=== PATIENT | female | born 1960 | race Caucasian/White ===

== ENCOUNTER 2017-07-01 09:22 | Inpatient (IN) | payer MEDICAID ==
[2017-07-01] VITALS (31 sets, daily range): BP systolic 119–233; BP diastolic 68–140; PULSE 15–161; RESP 15–28; TEMP 98.2–100.6; O2SAT 85–100
[~2017-07-01] VITALS: Ht 162.6 cm; Wt 60.0 kg
[2017-07-01] MEDS ORDERED: PANTOPRAZOLE INJ 80 MG in SODIUM CHLORIDE 0.9% INJ 100 ML IV SCH (09:37)
[2017-07-01] MEDS ORDERED: PANTOPRAZOLE INJ 80 MG in SODIUM CHLORIDE 0.9% INJ 35 ML IV ONE (09:37)
[2017-07-01] MEDS ORDERED: OCTREOTIDE INJ 500 MCG in SODIUM CHLORID 0.9% 500 ML INJ 500 ML IV SCH (09:37)
[2017-07-01] MEDS ORDERED: SODIUM CHLORIDE 0.9% FLUSH 10 ML FLUSH IV FLUSH PRN (09:45)
[2017-07-01] MEDS ORDERED: LORazepam 2 MG/ML VIAL ONE (09:46)
[2017-07-01] MEDS ORDERED: DILTIAZEM HCL 25 MG/5 ML VIAL ONE (09:46)
[2017-07-01] MEDS ORDERED: ETOMIDATE 20 MG/10 ML VIAL ONE (10:03)
[2017-07-01] MEDS ORDERED: SUCCINYLCHOLINE CHLORIDE 200 MG/10 ML VIAL ONE (10:03)
[2017-07-01 10:04] LABS: I-STAT POTASSIUM 3.3 MMOL/L (3.5-4.9)
[2017-07-01] MEDS ORDERED: PROPOFOL 1000 MG/100 ML INJ 100 ML ONE (10:05)
[2017-07-01 10:07] LABS: AUTOMATED NEUTROPHIL # 18.5 TH/MM3 (1.8-7.7); BASOPHIL % 0.2 % (0.0-2.0); HEMATOCRIT 44.3 % (35.0-46.0); HEMO FLAGS DIFF FINAL; LYMPH % 8.2 % (9.0-44.0); LYMPHOCYTE # 1.8 TH/MM3 (1.0-4.8); MEAN CELL VOLUME 90.6 FL (80.0-100.0); MEAN CORPUSCULAR HEMOGLOBIN 30.1 PG (27.0-34.0); MEAN CORPUSCULAR HGB CONC 33.2 % (32.0-36.0); MONO % 5.7 % (0.0-8.0); NEUT % 85.9 % (16.0-70.0); PLATELET COUNT 518 TH/MM3 (150-450); RED BLOOD COUNT 4.89 MIL/MM3 (4.00-5.30); RED CELL DISTRIBUTION WIDTH 14.9 % (11.6-17.2); WHITE BLOOD COUNT 21.6 TH/MM3 (4.0-11.0)
--- NOTE | 2017-07-01 10:11 | RADRPT ---
EXAM DATE/TIME: 07/01/2017 09:49 [facility] COMPARISON: No previous studies available for comparison. INDICATIONS : Stroke alert, altered mental status. RADIATION DOSE: 56.35 CTDIvol (mGy) This report was called by Dr. Mata to Dr. Cummings at 10: 07 AM on 07/01/17. MEDICAL HISTORY : Cardiovascular disease. SURGICAL HISTORY : None. ENCOUNTER: Initial ACUITY: 1 day PAIN SCALE: Non-responsive LOCATION: Bilateral head TECHNIQUE: Multiple contiguous axial images were obtained of the head. Using automated exposure control and adj ustment of the mA and/or kV according to patient size, radiation dose was kept as low as reasonably a chievable to obtain optimal diagnostic quality images. DICOM format image data is available electro nically for review and comparison. FINDINGS: CEREBRUM: The ventricles are normal for age. No evidence of midline shift, mass lesion, hemorrhage or acute in farction. No extra-axial fluid collections are seen. POSTERIOR FOSSA: The cerebellum and brainstem are intact. The 4th ventricle is midline. The cerebellopontine angle i s unremarkable. EXTRACRANIAL: The visualized portion of the orbits is intact. SKULL: The calvaria is intact. No evidence of skull fracture. CONCLUSION: No acute intracranial abnormality. Nader Mata MD on July 01, 2017 at 10:05 Board Certified Radiologist. This report was verified electronically.
[2017-07-01 10:14] LABS: APTT (PATIENT) 25.1 SEC (24.3-30.1); PROTHROMBIN TIME - PATIENT 10.6 SEC (9.8-11.6)
[2017-07-01] MEDS ORDERED: DEXAMETHASONE SOD PHOS 20 MG/5 ML VIAL IV PUSH STA (10:14)
[2017-07-01] MEDS ORDERED: AMPICILLIN INJ 2,000 MG in SODIUM CHLORIDE 0.9% INJ 100 ML IV STA (10:14)
[2017-07-01] MEDS ORDERED: cefTAZidime INJ 2,000 MG in SODIUM CHLORIDE 0.9% INJ 100 ML IV STA (10:14)
[2017-07-01] MEDS ORDERED: ETOMIDATE 20 MG/10 ML VIAL IVP ONE (10:15)
[2017-07-01] MEDS ORDERED: ACETAMINOPHEN 650 MG SUPP RECTAL ONE (10:15)
[2017-07-01] MEDS ORDERED: SODIUM CHLORIDE 0.9% FLUSH 10 ML FLUSH IVF PRN (10:15)
[2017-07-01] MEDS ORDERED: SUCCINYLCHOLINE CHLORIDE 200 MG/10 ML VIAL IV PUSH ONE (10:15)
[2017-07-01] MEDS ORDERED: DILTIAZEM HCL 25 MG/5 ML VIAL IV ONE (10:15)
[2017-07-01 10:26] LABS: ALT (GPT) 54 U/L (10-53); ANION GAP 9 MEQ/L (5-15); AST (GOT) 55 U/L (15-37); BICARBONATE 28.5 MEQ/L (21.0-32.0); BLOOD UREA NITROGEN 10 MG/DL (7-18); CHLORIDE 94 MEQ/L (98-107); GLOMERULAR FILTRATION RATE 69 ML/MIN (>89); MAGNESIUM 2.1 MG/DL (1.5-2.5); POTASSIUM 3.2 MEQ/L (3.5-5.1); SODIUM (NA) 131 MEQ/L (136-145)
[2017-07-01 10:28] LABS: ALKALINE PHOSPHATASE 128 U/L (45-117); TOTAL BILIRUBIN ADULT 0.4 MG/DL (0.2-1.0)
--- NOTE | 2017-07-01 10:28 | PD ---
HPI Chief Complaint: GI Complaint Time Seen by Provider: 09:37 Travel History International Travel<30 days: No Contact w/Intl Traveler<30days: No Traveled to known affect area: No History of Present Illness HPI 57 y/o female presents by ambulance with an initial call of vomiting blood for the past couple of days. While I was talking to the ambulance team getting report they state that in route she became less cooperative answering questions. When I go to evaluate the patient she is unresponsive with a rightward gaze and cannot provide me any history. History is significantly limited [facility] Past Medical History Medical History: Unable to Obtain Cardiovascular Problems: Yes Diminished Hearing: No (UNOBTAINABLE) Hypertension: Yes Ulcer: Yes Tetanus Vaccination: Unknown Past Surgical History Surgical History: Unable to Obtain Social History Alcohol Use: No (UNOBTAINABLE) Tobacco Use: No (UNOBTAINABLE) Substance Use: No (UNOBTAINABLE) Allergies-Medications (Allergen,Severity, Reaction): Coded Allergies: Unable to Assess (Verified Allergy, Unknown, 07/01/17) Reported Meds & Prescriptions Reported Meds & Active Scripts Active Active Prescriptions or Reported Medications Unobtainable Review of Systems ROS Limitations: Clinical Condition Physical Exam Exam Limitations: Clinical Condition Narrative General: Patient with rightward gaze, focused exam performed Skin: Warm and dry Eyes: Pupils equal Neck: No JVD, trachea midline Cardiovascular: Tachycardic rate in the 160s Respiratory: Shallow respiratory effort noted, clear to auscultation bilaterally Abdomen: Soft, nondistended Extremities: No edema noted Neuro: Rightward gaze, nonverbal, unable to follow commands Data Data Last Documented VS Vital Signs Date Time Temp Pulse Resp B/P (MAP) Pulse Ox O2 Delivery O2 Flow Rate FiO2 07/01/17 10:21 100 100 07/01/17 10:15 151 16 127/71 (89) Ventilator 07/01/17 10:07 6.00 07/01/17 09:39 100.6 Orders Orders Complete Blood Count With Diff (07/01/17 09:37) Comprehensive Metabolic Panel (07/01/17 09:37) Lipase (07/01/17 09:37) Ammonia (07/01/17 09:37) Prothrombin Time / Inr (Pt) (07/01/17 09:37) Act Partial Throm Time (Ptt) (07/01/17 09:37) Alcohol (Ethanol) (07/01/17 09:37) Urinalysis - C+S If Indicated (07/01/17 09:37) Type And Screen (07/01/17 09:37) Chest, Single Ap (07/01/17 09:37) Ecg Monitoring (07/01/17 09:37) Iv Access Insert/Monitor (07/01/17 09:37) Oximetry (07/01/17 09:37) Sodium Chloride 0.9% Flush (Ns Flush) (07/01/17 09:45) Sodium Chlorid 0.9%... W/Octreotide Inj (07/01/17 09:37) Sodium Chloride 0.9... W/Pantoprazole In (07/01/17 09:37) Sodium Chloride 0.9... W/Pantoprazole In (07/01/17 09:37) Electrocardiogram (07/01/17 09:37) Creatine Kinase (Cpk) (07/01/17 09:37) Troponin I (07/01/17 09:37) Lactic Acid Sepsis Protocol (07/01/17 09:37) Blood Culture (07/01/17 09:37) Ct Brain W/O Iv Contrast(Rout) (07/01/17 09:37) Blood Glucose (07/01/17 09:37) Oxygen Administration (07/01/17 09:37) Urinary Catheter Insert/Apply (07/01/17 09:37) Sodium Chloride 0.9% Flush (Ns Flush) (07/01/17 09:45) Drug Screen, Random Urine (07/01/17 09:37) Magnesium (Mg) (07/01/17 09:37) Lorazepam Inj (Ativan Inj) (07/01/17 09:46) Diltiazem Inj (Cardizem Inj) (07/01/17 09:46) I-Stat Creatinine (07/01/17 10:00) I-Stat Profile (07/01/17 10:00) Fosphenytoin Inj (Cerebyx Inj) (07/01/17 10:30) Etomidate Inj (Amidate Inj) (07/01/17 10:03) Succinylcholine Inj (Quelicin Inj) (07/01/17 10:03) Propofol 1000 Mg/100 Ml Inj (Diprivan 10 (07/01/17 10:05) Phenytoin (Dilantin) (07/01/17 09:50) Isolation 08,20 (07/01/17 10:12) Equip, Isolation Cart (07/01/17 10:12) Arterial Blood Gas (Abg) (07/01/17 ) Acetaminophen Supp (Tylenol Supp) (07/01/17 10:15) Precautions (07/01/17 10:11) Etomidate Inj (Amidate Inj) (07/01/17 10:15) Succinylcholine Inj (Quelicin Inj) (07/01/17 10:15) Sodium Chloride 0.9% Flush (Ns Flush) (07/01/17 10:15) Propofol 1000 Mg/100 Ml Inj (Diprivan 10 (07/01/17 10:15) ^ Infusion (07/01/17 10:11) RASS (07/01/17 10:11) Neurological Rass Scale KAPIL.Q2H (07/01/17 10:11) Diltiazem Inj (Cardizem Inj) (07/01/17 10:15) Dexamethasone Inj (Decadron Inj) (07/01/17 10:14) Vancomycin Inj (Vancomycin Inj) (07/01/17 11:15) Ampicillin Inj (Ampicillin Inj) (07/01/17 10:14) Ceftazidime Inj (Fortaz Inj) (07/01/17 10:14) Glucose, Csf (07/01/17 10:28) Total Protein, Csf (07/01/17 10:28) Csf Culture And Gram Stain (07/01/17 10:28) Csf Hsv I/Ii Dna,Pcr (07/01/17 10:28) Chlorhexidine 0.12% Liq (Peridex 0.12% L (07/01/17 20:00) Resp Ventilation- Volume (07/01/17 ) Ventilator Weaning Readiness KAPIL.DAILY@0800 (07/01/17 10:34) Elevate Head Of Bed (07/01/17 10:34) Inpatient Certification (07/01/17 10:34) Magnesium Oxide (Mag-Ox) (07/01/17 10:45) Magnesium Sulfate Inj (Magnesium Sulfate (07/01/17 10:45) Magnesium Sulfate Inj (Magnesium Sulfate (07/01/17 10:45) Potassium Chlor 20 Meq Premix (Kcl 20 Me (07/01/17 10:45) Potassium Chlor 20 Meq Premix (Kcl 20 Me (07/01/17 10:45) Potassium Chlor 40 Meq Premix (Kcl 40 Me (07/01/17 10:45) Potassium Chlor 40 Meq Premix (Kcl 40 Me (07/01/17 10:45) Potassium Phosphate (K-Phos) (07/01/17 10:45) Potassium Phosphate (K-Phos) (07/01/17 10:45) Potassium Phosphate Inj (Potassium Phosp (07/01/17 10:45) Sodium Phosphate Inj (Sodium Phosphate I (07/01/17 10:45) ^ Medication Admin Instruction (07/01/17 10:34) Notify Dr: Other (07/01/17 10:34) Labetalol Inj (Trandate Inj) (07/01/17 10:45) Hydralazine Inj (Apresoline Inj) (07/01/17 10:45) Bedside Glucose KAPIL.Q6H (07/01/17 10:34) Blood Glucose Goal (Criteria) (07/01/17 10:34) Hypoglycemia 51 - 69 Mg/Dl (07/01/17 10:34) Hypoglycemia 50 Mg/Dl Or < (07/01/17 10:34) Notify Dr: Other (07/01/17 10:34) Dextrose 50% In Sadia (Vial) Inj (D50w (Vi (07/01/17 10:45) Insulin Human Reg Supp Scale (Novolin R (07/01/17 12:00) Diet Tube Feed Only (07/01/17 Breakfast) Dietary (Dietitian) Consult (07/01/17 10:34) Tube Feeding 08,20 (07/01/17 10:34) Restraints Non-Violent KAPIL.Q3H (07/01/17 10:34) Cbc No Diff, Includes Plts (07/02/17 05:00) Cbc No Diff, Includes Plts (07/03/17 05:00) Cbc No Diff, Includes Plts (07/04/17 05:00) Cbc No Diff, Includes Plts (07/05/17 05:00) Cbc No Diff, Includes Plts (07/06/17 05:00) Cbc No Diff, Includes Plts (07/07/17 05:00) Cbc No Diff, Includes Plts (07/08/17 05:00) Basic Metabolic Panel (Bmp) (07/02/17 05:00) Basic Metabolic Panel (Bmp) (07/03/17 05:00) Basic Metabolic Panel (Bmp) (07/04/17 05:00) Basic Metabolic Panel (Bmp) (07/05/17 05:00) Basic Metabolic Panel (Bmp) (07/06/17 05:00) Basic Metabolic Panel (Bmp) (07/07/17 05:00) Basic Metabolic Panel (Bmp) (07/08/17 05:00) Neuro Checks KAPIL.Q1H (07/01/17 10:34) Albuterol-Ipratropium Neb (Duoneb Neb) (07/01/17 16:00) Albuterol-Ipratropium Neb (Duoneb Neb) (07/01/17 10:45) Urinary Catheter Management KAPIL.Q1H (07/01/17 10:34) Tube Feeding (07/01/17 10:34) Sputum Culture And Gram Stain (07/01/17 10:34) ^ Other Nursing Orders (07/01/17 10:34) Resp Request For Service (07/01/17 ) Blood Culture (07/01/17 10:34) Specimen To Be Collected PRN (07/01/17 10:34) Code Status (07/01/17 10:34) Vital Signs (Adult) KAPIL.Q1H (07/01/17 10:34) Activity Bed Rest (07/01/17 10:34) Elevate Head Of Bed (07/01/17 10:34) Intake + Output Q1H (07/01/17 10:34) ^ Orogastric Tube (07/01/17 10:34) Sodium Chlor 0.9% 1000 Ml Inj (Ns 1000 M (07/01/17 10:34) Pantoprazole Inj (Protonix Inj) (07/01/17 14:00) Ondansetron Inj (Zofran Inj) (07/01/17 10:45) Scrap Crusher / Telemetry KAPIL.Q8H (07/01/17 10:34) Scd Bilateral/Knee High KAPIL.BID (07/01/17 10:34) ^ Initiate Protocol (07/01/17 10:34) Instruction (07/01/17 10:34) [facility] Nursing Information (07/01/17 10:45) Chlorhexidine 2% Cloth (Chlorhexidine 2% (07/02/17 04:00) Chlorhexidine 2% Cloth (Chlorhexidine 2% (07/01/17 10:45) Mrsa Pcr Surveillance (07/01/17 10:34) Docusate Sodium-Senna (Sarah-Colace) (07/01/17 21:00) Hgb & Hct (07/01/17 15:00) Hgb & Hct (07/01/17 21:00) Hgb & Hct (07/02/17 03:00) Hgb & Hct (07/02/17 09:00) Hgb & Hct (07/02/17 15:00) Vancomycin Consult Pharmacy (Vancomycin (07/01/17 10:45) Ceftriaxone Inj (Rocephin Inj) (07/01/17 14:00) Azithromycin Inj (Zithromax Inj) (07/01/17 15:00) Admit Order (Ed Use Only) (07/01/17 10:44) Labs Laboratory Tests Test 07/01/17 09:10 07/01/17 09:50 07/01/17 10:00 07/01/17 10:46 Lactic Acid Level 1.9 mmol/L White Blood Count 21.6 TH/MM3 Red Blood Count 4.89 MIL/MM3 Hemoglobin 14.7 GM/DL Hematocrit 44.3 % Mean Corpuscular Volume 90.6 FL Mean Corpuscular Hemoglobin 30.1 PG Mean Corpuscular Hemoglobin Concent 33.2 % Red Cell Distribution Width 14.9 % Platelet Count 518 TH/MM3 Mean Platelet Volume 7.0 FL Neutrophils (%) (Auto) 85.9 % Lymphocytes (%) (Auto) 8.2 % Monocytes (%) (Auto) 5.7 % Eosinophils (%) (Auto) 0.0 % Basophils (%) (Auto) 0.2 % Neutrophils # (Auto) 18.5 TH/MM3 Lymphocytes # (Auto) 1.8 TH/MM3 Monocytes # (Auto) 1.2 TH/MM3 Eosinophils # (Auto) 0.0 TH/MM3 Basophils # (Auto) 0.0 TH/MM3 CBC Comment DIFF FINAL Differential Comment Prothrombin Time 10.6 SEC Prothromb Time International Ratio 1.0 RATIO Activated Partial Thromboplast Time 25.1 SEC Blood Urea Nitrogen 10 MG/DL Creatinine 0.85 MG/DL Random Glucose 180 MG/DL Total Protein 7.6 GM/DL Albumin 3.8 GM/DL Calcium Level 9.1 MG/DL Magnesium Level 2.1 MG/DL Alkaline Phosphatase 128 U/L Aspartate Amino Transf (AST/SGOT) 55 U/L Alanine Aminotransferase (ALT/SGPT) 54 U/L Total Bilirubin 0.4 MG/DL Sodium Level 131 MEQ/L Potassium Level 3.2 MEQ/L Chloride Level 94 MEQ/L Carbon Dioxide Level 28.5 MEQ/L Anion Gap 9 MEQ/L Estimat Glomerular Filtration Rate 69 ML/MIN Ammonia 26 MCMOL/L Total Creatine Kinase 70 U/L Troponin I LESS THAN 0.02 NG/ML Lipase 58 U/L Phenytoin (Dilantin) Level 0.7 MCG/ML Ethyl Alcohol Level LESS THAN 3 MG/DL Bedside Hemoglobin 16.7 G/DL Bedside Hematocrit 49.0 % Bedside Sodium 131 MMOL/L Bedside Potassium 3.3 MMOL/L Bedside Chloride 91 MMOL/L Bedside Blood Urea Nitrogen 11 MG/DL Bedside Creatinine 0.8 MG/DL Bedside Glucose 188 MG/DL Blood Gas Puncture Site RT BRACHIAL Blood Gas Patient Temperature 98.6 Blood Gas HCO3 19 mmol/L Blood Gas Base Excess -5.2 mmol/L Blood Gas Oxygen Saturation 98 % Arterial Blood pH 7.39 Arterial Blood Partial Pressure CO2 32 mmHg Arterial Blood Partial Pressure O2 488 mmHg Arterial Blood Oxygen Content 18.7 Vol % Arterial Blood Carboxyhemoglobin 1.1 % Arterial Blood Methemoglobin 0.9 % Blood Gas Hemoglobin 12.7 G/DL Oxygen Delivery Device VENTILATOR Blood Gas Ventilator Setting A/C16/500/PEEP5 Blood Gas Inspired Oxygen 100 % MDM Medical Decision Making Medical Screen Exam Complete: Yes Emergency Medical Condition: Yes Interpretation(s) CBC & BMP Diagram 07/01/17 09:50 Total Protein 7.6, Albumin 3.8, Calcium Level 9.1, Magnesium Level 2.1, Alkaline Phosphatase 128 H, Aspartate Amino Transf (AST/SGOT) 55 H, Alanine Aminotransferase (ALT/SGPT) 54 H, Total Bilirubin 0.4 Last [address] 07/01/17 0937 Signed Impressions: Service Date/Time: Saturday, July 01, 2017 09:49 - CONCLUSION: No acute intracranial abnormality. Nader Mata MD Last [address] [id number]/[id number] Signed Impressions: Service Date/Time: Saturday, July 01, 2017 09:49 - CONCLUSION: No acute intracranial abnormality. Nader Mata MD Chest X-Ray [id number]/[id number] Signed Impressions: Service Date/Time: Saturday, July 01, 2017 10:36 - CONCLUSION: 1. 2.5 cm right perihilar mass. CT of the chest with contrast would be helpful for further evaluation of this suspicious lesion. 2. Endotracheal tube in good position 3 cm above the chidi. Nader Mata MD Differential Diagnosis Seizure, bleed, electrolyte abnormality, hypoglycemia, sepsis, varices, ulcer Narrative Course For patient's tachycardia she was given 20 mg of Cardizem to assess rhythm to see if atrial flutter versus sinus tachycardia. Improved from 180s to 140s but still difficult to tell underlying rhythm. With patient's acute altered mental status discuss with neurology my concern for bleed versus seizure and given acute onset they requested stroke alert which was called, I went with patient to CT scan and in route patient had tonic-clonic seizure. Was given 2 mg of Ativan and seizure stopped and myself and respiratory therapy and nurse watched patient on the monitor, no large bleed noted on CT, patient did not improve from her post ictal phase and respirations got shallower so proceeded with intubation when back in room with etomidate and succinylcholine. Patient will be loaded with Cerebyx and placed on propofol. Will be given Tylenol for fever. There is report from ambulance team the patient is an alcoholic and given she's been vomiting she likely is having an alcohol withdrawal seizure. But given fever Will Prophylactically treat for meningitis and patient will need LP. Patient's heart rate and blood pressure improved with anti-pyretic and IV fluid hydration. Patient can have repeat EKG to confirm upstairs. LP performed with clear fluid. Patient remains sedated on the ventilator Critical Care Narrative Aggregate critical care time was 90 minutes. Time to perform other separately billable procedures was not included in the critical care time. My time did not include minutes spent treating any other patients simultaneously or on activities that did not directly contribute to the patient's treatment. The services I provided to this patient were to treat and/or prevent clinically significant deterioration that could result in: Septic shock, respiratory failure, I provided critical care services requiring my management, as noted below: Chart data review, documentation time, medication orders and management, vital sign assessments/reviewing monitor data, ordering and reviewing lab tests, ordering and interpreting/reviewing x-rays and diagnostic studies, care of the patient and discussion of the patient with the admitting physicians. Procedures Procedure Narrative Emergently performed: INTUBATION: The patient was put in optimal position for the procedure. Rapid sequence intubation was initiated by me using 20 milligrams of etomidate IV and 100 milligrams of succinylcholine IV. The patient was intubated with a 7.5 cuffed endotracheal tube. Tube placement was confirmed by visualization of the tube and balloon passing through the cords, capnometry and subsequent chest x- ray. Breath sounds were equal and well aerated bilaterally postintubation. No breath sounds over stomach. Patient tolerated procedure well. LUMBAR PUNCTURE: The patient was placed in the left lateral decubitus position. The lumbar area of the back was prepped with Betadine and sterilely draped. The L3 -- L4 interspace was infiltrated with 1% lidocaine plain. Adult LP needle was placed in the interspace on one attempt. Opening pressure was low. Clear CSF was obtained and placed into the 4 specimen containers. On the fourth tube a small amount of blood was noted so cell count will be taken off second tube, Patient tolerated procedure well. Sepsis Criteria SIRS Criteria (2 or more): Heart rate over 90, WBC > 26937, < 4000 or > 10% bands Sepsis Criteria (SIRS+source): Infect source susp/known Criteria Outcome: Meets sepsis criteria Physician Communication Physician Communication dr gaona states to call stroke alert to expediate and will follow dr gaona updated agrees to cerebyx, and lp and cancel stroke alert dr tripathi agrees to admit Diagnosis Primary Impression: Respiratory failure Qualified Codes: J96.00 - Acute respiratory failure, unspecified whether with hypoxia or hypercapnia Additional Impressions: Seizure Tachycardia Hypertension Qualified Codes: I10 - Essential (primary) hypertension Vomiting Qualified Codes: R11.10 - Vomiting, unspecified Fever Qualified Codes: R50.9 - Fever, unspecified Sepsis Qualified Codes: A41.9 - Sepsis, unspecified organism Lung mass Admitting Information Admitting Physician Requests: Admit Scripts Unable to Obtain Active Prescriptions or Reported Meds Hird,Helen May MD Jul 01, 2017 10:28
[2017-07-01 10:30] LABS: ALCOHOL LESS THAN 3 MG/DL (0-5); CREATINE KINASE 70 U/L (26-192)
[2017-07-01] MEDS ORDERED: FOSPHENYTOIN INJ 1,000 MGPE in SODIUM CHLORIDE 0.9% INJ 50 ML IV ONE (10:30)
[2017-07-01] MEDS: PROPOFOL 1000 MG/100 ML INJ 100 ML IV PRN ×3 (10:33→21:00)
[2017-07-01] MEDS: SODIUM CHLORIDE 0.9% FLUSH 10 ML FLUSH IVF PRN (10:37)
[2017-07-01] MEDS ORDERED: hydrALAZINE HCL 20 MG/ML VIAL IV PUSH PRN (10:45)
[2017-07-01] MEDS ORDERED: RESP: ALBUTEROL 2.5 MG/IPRATROPIUM 0.5 MG NEB (PRN) INH (10:45)
[2017-07-01] MEDS ORDERED: POTASSIUM PHOSPHATE MONOBASIC 500 MG TAB PO PRN (10:45)
[2017-07-01] MEDS ORDERED: MAGNESIUM SULFATE INJ 4 GM in SODIUM CHLORIDE 0.9% INJ 92 ML IV PRN (10:45)
[2017-07-01] MEDS ORDERED: Vancomycin Consult Pharmacy 1 EA OTHER PRN (10:45)
[2017-07-01] MEDS ORDERED: SODIUM PHOSPHATE INJ 30 MMOL in SODIUM CHLOR 0.9% 250 ML INJ 240 ML IV PRN (10:45)
[2017-07-01] MEDS ORDERED: MISCELLANEOUS NURSING INFORMATION XX SCH (10:45)
[2017-07-01] MEDS ORDERED: POTASSIUM PHOSPHATE MONOBASIC 500 MG TAB PO/TUBE PRN (10:45)
[2017-07-01] MEDS ORDERED: POTASSIUM CHLOR 40 MEQ PREMIX 100 ML IV PRN ×2 (10:45)
[2017-07-01] MEDS ORDERED: MAGNESIUM SULFATE INJ 2 GM in SODIUM CHLORIDE 0.9% INJ 96 ML IV PRN (10:45)
[2017-07-01] MEDS ORDERED: MAGNESIUM OXIDE 400 MG TAB PO PRN (10:45)
[2017-07-01] MEDS ORDERED: CHLORHEXIDINE GLUCONATE 2 % 1 PACK (2 CLOTHS) TOP PRN (10:45)
[2017-07-01] MEDS ORDERED: ONDANSETRON HCL 4 MG/2 ML VIAL IV PUSH PRN (10:45)
[2017-07-01] MEDS ORDERED: POTASSIUM PHOSPHATE INJ 30 MMOL in SODIUM CHLOR 0.9% 250 ML INJ 250 ML IV PRN (10:45)
[2017-07-01] MEDS ORDERED: LABETALOL HCL 100 MG/20 ML VIAL IV PUSH PRN (10:45)
[2017-07-01 10:56] LABS: BLOOD GAS BASE EXCESS -5.2 mmol/L (-2-2); BLOOD GAS CARBOXYHEMOGLOBIN 1.1 % (0-4); BLOOD GAS HCO3 19 mmol/L (22-26); BLOOD GAS METHEMOGLOBIN 0.9 % (0-2); BLOOD GAS O2 HGB SATURATION 98 % (90-100); BLOOD GAS OXYGEN CONTENT 18.7 Vol % (12.0-20.0); BLOOD GAS PCO2 32 mmHg (38-42); BLOOD GAS PO2 488 mmHg (61-120); BLOOD GAS TOTAL HGB 12.7 G/DL (12.0-16.0); TEMP CORR TO 98.6
[2017-07-01 10:57] LABS: CRITICAL VALUE NO; DRAW SITE RT BRACHIAL; FIO2 100 %; NUMBER OF ARTERIAL PUNCTURES 2; OXYGEN DEVICE VENTILATOR; STAT YES; VENT SETTINGS A/C16/500/PEEP5
[2017-07-01] MEDS ORDERED: VANCOMYCIN INJ 1,600 MG in SODIUM CHLORID 0.9% 500 ML INJ 500 ML IV ONE (11:15)
--- NOTE | 2017-07-01 11:20 | RADRPT ---
EXAM DATE/TIME: 07/01/2017 10:36 [facility] COMPARISON: No previous studies available for comparison. INDICATIONS : Post intubation MEDICAL HISTORY : Cardiovascular disease. SURGICAL HISTORY : None. ENCOUNTER: Initial ACUITY: 1 day PAIN SCORE: Non-responsive. LOCATION: Bilateral chest FINDINGS: There is a 2.5 cm right perihilar mass. CT of the chest with contrast would be helpful for further ev aluation of this suspicious lesion. An endotracheal tube has its tip 3 cm above the chidi. A nasogas tric has its tip in the stomach. No pulmonary vascular congestion is noted. No focal infiltrate is no candida. There is no healed fracture of the right posterior ninth rib. CONCLUSION: 1. 2.5 cm right perihilar mass. CT of the chest with contrast would be helpful for further evaluation of this suspicious lesion. 2. Endotracheal tube in good position 3 cm above the chidi. Nader Mata MD on July 01, 2017 at 11:15 Board Certified Radiologist. This report was verified electronically.
[2017-07-01] MEDS: INSULIN NovoLIN REGULAR SUPPLEMENTAL SCALE SQ SCH ×2 (12:00→18:00)
[2017-07-01] MEDS ORDERED: MIDAZOLAM HCL 2 MG/2 ML VIAL IV PUSH ONE (12:00)
[2017-07-01] MEDS ORDERED: MIDAZOLAM HCL 5 MG/ML VIAL (1 ML) ONE (12:21)
[2017-07-01 12:22] LABS: BACTERIA, URINE MOD /hpf; BLOOD, URINE SMALL (NEG); GLUCOSE,URINE 300 mg/dL (NEG); HYALINE CAST, URINE 56 /lpf (RARE); KETONE, URINE NEG (NEG); MUCUS URINE FEW /lpf (OCC); NITRITE,URINE NEG (NEG); SQUAMOUS EPITHELIAL CELL URINE 11 /hpf (0-5); TRANSITIONAL EPI CELLS, URINE 1 /hpf; URINE COLOR YELLOW (YELLW/STRAW)
[2017-07-01 12:25] LABS: COMMENT (UR) CULTURE INDICATED; CULTURE IF INDICATED CULTURE INDICATED
[2017-07-01] MEDS ORDERED: MIDAZOLAM HCL 5 MG/5 ML VIAL IV PUSH ONE (12:30)
[2017-07-01] MEDS ORDERED: IOHEXOL 350 MG/ML 10 ML VIAL (for RAD DIAG) IVCONTRAST ONE (12:46)
[2017-07-01 13:09] LABS: GROSS BLOOD TUBE #1 0 (0); SUPERNATE COLOR TUBE #1 CLEAR (CLEAR); SUPERNATE COLOR TUBE #2 CLEAR (CLEAR); VOLUME TUBE # 1 0.9 ML; VOLUME TUBE # 2 1.9 ML
[2017-07-01 13:10] LABS: GROSS BLOOD TUBE #3 0 (0); GROSS BLOOD TUBE #4 1+ (0); SUPERNATE COLOR TUBE #3 CLEAR (CLEAR); SUPERNATE COLOR TUBE #4 CLEAR (CLEAR); VOLUME TUBE # 3 1.5 ML; VOLUME TUBE # 4 2.5 ML; WBC TUBE #2 2 /MM3 (0-10)
[2017-07-01 13:11] LABS: CSF LYMPHOCYTES 93 %; CSF MONOCYTES 7 %; CSF NEUTROPHILS 0 %
[2017-07-01 13:15] LABS: GROSS BLOOD TUBE #2 0 (0)
--- NOTE | 2017-07-01 13:18 | RADRPT ---
EXAM DATE/TIME: 07/01/2017 12:35 [facility] COMPARISON: No previous studies available for comparison. INDICATIONS : Abnormal chest x-ray, evaluate for mass. IV CONTRAST: 90 cc Omnipaque 350 (iohexol) IV ; Cumulative dose for multiple exams. ORAL CONTRAST: No oral contrast ingested. RADIATION DOSE: 5.89 CTDIvol (mGy) ; Combined studies MEDICAL HISTORY : Hypertension. SURGICAL HISTORY : Non-responsive. ENCOUNTER: Initial ACUITY: 1 day PAIN SCALE: Non-responsive LOCATION: Bilateral abdomen TECHNIQUE: Volumetric scanning of the abdomen and pelvis was performed. Using automated exposure control and ad justment of the mA and/or kV according to patient size, radiation dose was kept as low as reasonably achievable to obtain optimal diagnostic quality images. DICOM format image data is available electro nically for review and comparison. FINDINGS: LOWER LUNGS: Mild bibasilar groundglass opacities consistent with atelectasis. LIVER: Diffusely decreased hepatic density without evidence for focal mass. There is subtle central intrahep atic ductal dilatation. Single calcified gallstone is noted in the gallbladder which is mildly dilate d. Common bile duct is slightly prominent measuring up to 8 mm. SPLEEN: Normal size without lesion. PANCREAS: Within normal limits. KIDNEYS: Normal in size and shape. There is no mass, stone or hydronephrosis. ADRENAL GLANDS: 1.4 x 1.9 cm left adrenal mass. VASCULAR: Vascular coils corresponded to the GDA territory. BOWEL/MESENTERY: There is an NGT in the stomach. Stomach and jejunum are dilated measuring up to 4.6 cm with a point o f transition in the left lower quadrant. Ileum appears largely decompressed. There is a moderate amou nt of stool in the rectum and sigmoid colon. Remainder of the colon is unremarkable. There is no pneu matosis or free air. No significant free fluid. ABDOMINAL WALL: Within normal limits. RETROPERITONEUM: There is no lymphadenopathy. BLADDER: Decompressed secondary to Almanza catheter. REPRODUCTIVE: Within normal limits. INGUINAL: There is no lymphadenopathy or hernia. MUSCULOSKELETAL: Suspect large Schmorl's node at T12. Degenerative changes in the lower lumbar spine. There is a left femoral fixation screw in place. CONCLUSION: 1. Distended stomach and jejunum with transition point in the left lower quadrant. Findings are consi stent with at least a partial small bowel obstruction. No evidence for perforation or bowel infarctio n at this time. 2. Slight prominence of the common bile duct and central intrahepatic ducts with mild gallbladder dis tention. This may be due to the small bowel dilatation but distal CBD obstruction cannot be entirely excluded. This can be further evaluated with HIDA scan as clinically warranted. 3. 1.4 x 1.9 cm left adrenal mass. This can be further evaluated with PET scan if patient is confirme d to have a lung mass. 4. Ancillary findings, as above. Jaylen Sheldon MD on July 01, 2017 at 12:53 Board Certified Radiologist. This report was verified electronically.
--- NOTE | 2017-07-01 13:26 | RADRPT ---
EXAM DATE/TIME: 07/01/2017 12:35 [place] COMPARISON: CT BRAIN W/O CONTRAST, July 01, 2017, 9:49. INDICATIONS : Abnormal x-ray. Evaluate for mass. IV CONTRAST: 90 cc Omnipaque 350 (iohexol) IV ; Cumulative dose for multiple exams. RADIATION DOSE: 5.89 CTDIvol (mGy) ; Combined studies MEDICAL HISTORY : Hypertension. SURGICAL HISTORY : Non-responsive. ENCOUNTER: Initial ACUITY: 1 day PAIN SCALE: Non-responsive LOCATION: Bilateral chest TECHNIQUE: Volumetric scanning of the chest was performed. Using automated exposure control and adjustment of t he mA and/or kV according to patient size, radiation dose was kept as low as reasonably achievable to obtain optimal diagnostic quality images. DICOM format image data is available electronically for review and comparison. Follow-up recommendations for detected pulmonary nodules are based at a minimum on nodule size and pa tient risk factors according to Fleischner Society Guidelines. FINDINGS: There is evidence of a centrally-located perihilar right upper lobe mass measuring 2.8 x 2.5 cm which is suggestive of bronchogenic carcinoma until proven otherwise. Biopsy via bronchoscopy should be at tempted initially as this appears to be easily accessible from the right upper lobe bronchus. There i s a 6 mm noncalcified nodule within the anteromedial aspect of the right upper lobe which may represe nt metastatic nodule. Tiny 2 and 3 mm nodules are also noted within the right upper lobe. There is a partially-calcified, somewhat-spiculated right upper lobe nodule measuring 13 x 11 mm which is indete rminate. There is a centrally calcified 10 mm nodule within the anterior aspect of the left upper lob e consistent with possible granuloma. Right hilar lymphadenopathy is noted with the largest lymph nod e measuring 1.7 x 1.4 cm. No mediastinal lymphadenopathy is noted. No axillary lymphadenopathy is not ed. Minimal posterior atelectatic changes and pleural thickening are noted. Coronary artery calcifica tions are noted. Moderate compression deformity involving the T12 vertebral body is likely chronic. CONCLUSION: 1. Centrally-located perihilar right upper lobe mass measuring 2.8 x 2.5 cm which is suggestive of br onchogenic carcinoma until proven otherwise. Biopsy via bronchoscopy should be attempted initially as this appears to be easily accessible from the right upper lobe bronchus. 2. Scattered much smaller noncalcified nodules within the right upper lobe suggesting metastatic dise ase. 3. Right hilar lymphadenopathy measuring 1.7 x 1.4 cm. 4. Partially-calcified, somewhat-spiculated right upper lobe nodule measuring 13 x 11 mm which is ind eterminate. 5. 10 mm calcified granuloma within the left upper lobe. 6. Minimal posterior atelectatic changes and pleural thickening bilaterally. 7. Coronary artery calcifications. 8. Moderate compression deformity involving T12 which is likely chronic. Nader Mata MD on July 01, 2017 at 13:11 Board Certified Radiologist. This report was verified electronically.
[2017-07-01] MEDS: RESP: ALBUTEROL 2.5 MG/IPRATROPIUM 0.5 MG NEB (SCH) INH ×2 (14:40→21:35)
[2017-07-01] MEDS: AZITHROMYCIN INJ 500 MG in SODIUM CHLOR 0.9% 250 ML INJ 250 ML IV SCH (15:00)
[2017-07-01] MEDS: PANTOPRAZOLE SODIUM 40 MG VIAL IV PUSH SCH (15:01)
[2017-07-01] MEDS: VANCOMYCIN INJ 1,250 MG in SODIUM CHLOR 0.9% 250 ML INJ 250 ML IV SCH (15:01)
[2017-07-01] MEDS: SODIUM CHLOR 0.9% 1000 ML INJ 1,000 ML IV SCH ×2 (15:15→22:29)
[2017-07-01] MEDS: cefTRIAXone INJ 2,000 MG in SODIUM CHLORIDE 0.9% INJ 100 ML IV SCH (15:42)
--- NOTE | 2017-07-01 15:46 | EKG ---
Date Performed: 07/01/2017 Time Performed: 09:43:31 PTAGE: 57 years EKG: PROBABLE SINUS TACHYCARDIA, BORDERLINE LEFT AXIS DEVIATION, NONSPECIFIC ST & T-WAVE ABNORMA LITY ABNORMAL RHYTHM ECG NO PREVIOUS TRACING DOCTOR: Dimitris Pierce Interpretating Date/Time 07/01/2017 15:45:04
[2017-07-01] MEDS: fentaNYL DRIP 250 ML IV PRN (16:33)
--- NOTE | 2017-07-01 17:05 | HHI.HP ---
HPI Service Critical Care Medicine Primary Care Physician Unknown Admission Diagnosis respiratory failure, seizure, fever, vomiting Diagnosis: Chief Complaint: altered mental status Travel History International Travel<30 Days: No Contact w/Intl Traveler <30 Da: No Traveled to Known Affected Are: No History of Present Illness Delayed note entry: seen and evaluated in the emergency department around 10: 45am. This is a 57-year-old female with an unknown past medical history who presented by EMS with the complaint of vomiting blood times a few days per report. Unfortunately, when she was evaluated by the ER physician, she was obtunded with a gaze deviation and hypoxic on room air. She was emergently intubated. During stat head CT, she had a witnessed generalized tonic-clonic seizure. She was given fosphenytoin. Neurology was consulted for possible stroke alert, but given questionable GI bleed and witnessed seizure, TPA was not administered. In the emergency department, however she was febrile to 100.6F, tachycardic, hypertensive. LP was performed in the emergency department which showed normal glucose, normal protein, with clear CSF. OG tube was placed without coffee grounds emesis or significant output. I personally instilled 300mL free water into the OG tube and hooked it up to LIWS and did not get any coffee grounds or bright red bloody output, only clear liquid output from her OG tube. Screening chest x-ray post intubation demonstrated right hilar mass. Follow-up CT chest abdomen and pelvis with IV contrast demonstrated multiple lung lesions concerning for a static lung cancer. CT abdomen and pelvis demonstrated possible small bowel obstruction with significant stool burden in the sigmoid and rectum. Lactate is normal. She does have leukocytosis to 20,000. No additional information is available from the patient. ROS is unobtainable Review of Systems ROS Limitations: Clinical Condition, Intubated, Altered Mental Status, Unresponsive Past Family Social History Allergies: Coded Allergies: Unable to Assess (Verified Allergy, Unknown, 07/01/17) Past Medical History Unknown unobtainable secondary the clinical condition of the patient Past Surgical History Unknown unobtainable secondary the clinical condition of the patient Reported Medications Unknown unobtainable secondary the clinical condition of the patient Active Ordered Medications See MAR Family History Unknown unobtainable secondary the clinical condition of the patient Social History Unknown unobtainable secondary the clinical condition of the patient Physical Exam Vital Signs Vital Signs Date Time Temp Pulse Resp B/P (MAP) Pulse Ox O2 Delivery O2 Flow Rate FiO2 07/01/17 13:11 07/01/17 12:52 100 100 07/01/17 12:51 97 50 07/01/17 12:30 102 16 156/86 (109) 100 Ventilator 50 07/01/17 12:05 102 16 170/94 (119) 100 Ventilator 50 07/01/17 11:45 112 16 160/89 (112) 100 Ventilator 50 07/01/17 11:30 110 16 145/83 (103) 100 Ventilator 50 07/01/17 11:15 118 16 152/87 (108) 100 Ventilator 50 07/01/17 11:02 98.2 117 16 149/92 (111) 100 Ventilator 50 07/01/17 10:56 98.2 119 18 119/86 (97) 100 Ventilator 100 07/01/17 10:30 146 16 129/68 (88) 100 Ventilator 07/01/17 10:21 100 100 07/01/17 10:15 151 16 127/71 (89) 100 Ventilator 07/01/17 10:13 100 07/01/17 10:07 147 28 166/83 (110) 100 Nasal Cannula 6.00 07/01/17 10:00 154 159/86 (110) 95 Nasal Cannula 6.00 07/01/17 09:55 151 157/80 (105) 97 Nasal Cannula 6.00 07/01/17 09:52 151 28 143/80 (101) 94 Nasal Cannula 6.00 07/01/17 09:42 Nasal Cannula 2.00 07/01/17 09:42 85 Room Air 07/01/17 09:39 100.6 161 26 233/140 (171) 98 Nasal Cannula 2.00 07/01/17 09:34 100.6 142 24 233/140 (171) 85 Physical Exam GENERAL: Middle-aged female who appears older than stated age, lying in bed, intubated, sedated, critically ill HEENT: Normocephalic. Atraumatic. Pupils equal, round, reactive, conjugate. Mucous membranes are dry NECK: Trachea is midline. There is no JVD. CHEST:. Equal Chest rise. PRVC, 50% FiO2, PEEP 5. CARDIOVASCULAR: Tachycardic rate, regular rhythm. Sinus by telemetry ABDOMEN: Soft, nontender, nondistended. No guarding. OG tube in place with evidence of clear liquid that I lavaged the stomach with. No evidence of bleeding or coffee-ground emesis MUSCULOSKELETAL: Pulses 2+. No peripheral edema. NEUROLOGICAL: RASS -3/+1. Intermittently agitated. Obtunded. Moves all extremities spontaneously, but does not follow commands. Laboratory Laboratory Tests Test 07/01/17 09:10 07/01/17 09:50 07/01/17 10:00 07/01/17 10:46 Lactic Acid Level 1.9 White Blood Count 21.6 Red Blood Count 4.89 Hemoglobin 14.7 Hematocrit 44.3 Mean Corpuscular Volume 90.6 Mean Corpuscular Hemoglobin 30.1 Mean Corpuscular Hemoglobin Concent 33.2 Red Cell Distribution Width 14.9 Platelet Count 518 Mean Platelet Volume 7.0 Neutrophils (%) (Auto) 85.9 Lymphocytes (%) (Auto) 8.2 Monocytes (%) (Auto) 5.7 Eosinophils (%) (Auto) 0.0 Basophils (%) (Auto) 0.2 Neutrophils # (Auto) 18.5 Lymphocytes # (Auto) 1.8 Monocytes # (Auto) 1.2 Eosinophils # (Auto) 0.0 Basophils # (Auto) 0.0 CBC Comment DIFF FINAL Differential Comment Prothrombin Time 10.6 Prothromb Time International Ratio 1.0 Activated Partial Thromboplast Time 25.1 Blood Urea Nitrogen 10 Creatinine 0.85 Random Glucose 180 Total Protein 7.6 Albumin 3.8 Calcium Level 9.1 Magnesium Level 2.1 Alkaline Phosphatase 128 Aspartate Amino Transf (AST/SGOT) 55 Alanine Aminotransferase (ALT/SGPT) 54 Total Bilirubin 0.4 Sodium Level 131 Potassium Level 3.2 Chloride Level 94 Carbon Dioxide Level 28.5 Anion Gap 9 Estimat Glomerular Filtration Rate 69 Ammonia 26 Total Creatine Kinase 70 Troponin I LESS THAN 0.02 Lipase 58 Phenytoin (Dilantin) Level 0.7 Ethyl Alcohol Level LESS THAN 3 Bedside Hemoglobin 16.7 Bedside Hematocrit 49.0 Bedside Sodium 131 Bedside Potassium 3.3 Bedside Chloride 91 Bedside Blood Urea Nitrogen 11 Bedside Creatinine 0.8 Bedside Glucose 188 Blood Gas Puncture Site RT BRACHIAL Blood Gas Patient Temperature 98.6 Blood Gas HCO3 19 Blood Gas Base Excess -5.2 Blood Gas Oxygen Saturation 98 Arterial Blood pH 7.39 Arterial Blood Partial Pressure CO2 32 Arterial Blood Partial Pressure O2 488 Arterial Blood Oxygen Content 18.7 Arterial Blood Carboxyhemoglobin 1.1 Arterial Blood Methemoglobin 0.9 Blood Gas Hemoglobin 12.7 Oxygen Delivery Device VENTILATOR Blood Gas Ventilator Setting A/C16/500/PEEP5 Blood Gas Inspired Oxygen 100 Test 07/01/17 10:50 07/01/17 11:05 Urine Color YELLOW Urine Turbidity HAZY Urine pH 6.0 Urine Specific [place] 1.025 Urine Protein 300 Urine Glucose (UA) 300 Urine Ketones NEG Urine Occult Blood SMALL Urine Nitrite NEG Urine Bilirubin NEG Urine Urobilinogen LESS THAN 2.0 Urine Leukocyte Esterase NEG Urine RBC 14 Urine WBC 12 Urine Squamous Epithelial Cells 11 Urine Transitional Epithelial Cells 1 Urine Bacteria MOD Urine Hyaline Casts 56 Urine Mucus FEW Microscopic Urinalysis Comment CULTURE INDICATED Urine Opiates Screen NEG Urine Barbiturates Screen NEG Urine Amphetamines Screen NEG Urine Benzodiazepines Screen NEG Urine Cocaine Screen NEG Urine Cannabinoids Screen POS CSF Volume (Tube 1) 0.9 CSF Supernatant Color (tube 1) CLEAR CSF Gross Blood (Tube 1) 0 CSF Volume (Tube 2) 1.9 CSF Supernatant Color (tube 2) CLEAR CSF Gross Blood (Tube 2) 0 CSF WBC (Tube 2) 2 CSF RBC (Tube 2) 2 CSF Volume (Tube 3) 1.5 CSF Supernatant Color (tube 3) CLEAR CSF Gross Blood (Tube 3) 0 CSF Volume (Tube 4) 2.5 CSF Supernatant Color (tube 4) CLEAR CSF Gross Blood (Tube 4) 1+ CSF Neutrophils 0 CSF Lymphocytes 93 CSF Monocytes 7 CSF Glucose 94 CSF Total Protein 30.7 Date/Time Source Procedure Growth Status 07/01/17 09:50 Blood Peripheral Aerobic Blood Culture Pending Received 07/01/17 09:50 Blood Peripheral Anaerobic Blood Culture Pending Received 07/01/17 11:05 Cerebral Spinal Fluid Lumbar Puncture Gram Stain - Final Resulted 07/01/17 11:05 Cerebral Spinal Fluid Lumbar Puncture CSF Culture Pending Resulted 07/01/17 11:15 Sputum Endotracheal Gram Stain Pending Received 07/01/17 11:15 Sputum Endotracheal Sputum Culture Pending Received 07/01/17 10:50 Urine Clean Catch Urine Culture Pending Received Result Diagram: 07/01/17 0950 07/01/17 0950 Imaging Last Impressions Head CT 07/01/17 0937 Signed Impressions: Service Date/Time: Saturday, July 01, 2017 09:49 - CONCLUSION: No acute intracranial abnormality. Nader Mata MD Chest X-Ray 07/01/17 0937 Signed Impressions: Service Date/Time: Saturday, July 01, 2017 10:36 - CONCLUSION: 1. 2.5 cm right perihilar mass. CT of the chest with contrast would be helpful for further evaluation of this suspicious lesion. 2. Endotracheal tube in good position 3 cm above the chidi. Nader Mata MD Chest CT 07/01/17 0000 Signed Impressions: Service Date/Time: Saturday, July 01, 2017 12:35 - CONCLUSION: 1. Centrally-located perihilar right upper lobe mass measuring 2.8 x 2.5 cm which is suggestive of bronchogenic carcinoma until proven otherwise. Biopsy via bronchoscopy should be attempted initially as this appears to be easily accessible from the right upper lobe bronchus. 2. Scattered much smaller noncalcified nodules within the right upper lobe suggesting metastatic disease. 3. Right hilar lymphadenopathy measuring 1.7 x 1.4 cm. 4. Partially-calcified, somewhat-spiculated right upper lobe nodule measuring 13 x 11 mm which is indeterminate. 5. 10 mm calcified granuloma within the left upper lobe. 6. Minimal posterior atelectatic changes and pleural thickening bilaterally. 7. Coronary artery calcifications. 8. Moderate compression deformity involving T12 which is likely chronic. Nader Mata MD Abdomen/Pelvis CT 07/01/17 0000 Signed Impressions: Service Date/Time: Saturday, July 01, 2017 12:35 - CONCLUSION: 1. Distended stomach and jejunum with transition point in the left lower quadrant. Findings are consistent with at least a partial small bowel obstruction. No evidence for perforation or bowel infarction at this time. 2. Slight prominence of the common bile duct and central intrahepatic ducts with mild gallbladder distention. This may be due to the small bowel dilatation but distal CBD obstruction cannot be entirely excluded. This can be further evaluated with HIDA scan as clinically warranted. 3. 1.4 x 1.9 cm left adrenal mass. This can be further evaluated with PET scan if patient is confirmed to have a lung mass. 4. Ancillary findings, as above. Jaylen Sheldon MD Septic Shock Reassessment Septic shock perfusion: reassessment completed Caprini VTE Risk Assessment Caprini VTE Risk Assessment: Mod/High Risk (score >= 2) Caprini Risk Assessment Model Point Value = 1 Point Value = 2 Point Value = 3 Point Value = 5 Age 41-60 Minor surgery BMI > 25 kg/m2 Swollen legs Varicose veins or History of unexplained or recurrent spontaneous Oral contraceptives or hormone replacement Sepsis (< 1 month) Serious lung disease, including pneumonia (< 1 month) Abnormal pulmonary function Acute myocardial infarction Congestive heart failure (< 1 month) History of inflammatory bowel disease Medical patient at bed rest Age 61-74 Arthroscopic surgery Major open surgery (> 45 min) Laparoscopic surgery (> 45 min) Malignancy Confined to bed (> 72 hours) Immobilizing plaster cast Central venous access Age >= 75 History of VTE Family history of VTE Factor V Leiden Prothrombin [id number] Lupus anticoagulant Anticardiolipin antibodies Elevated serum homocysteine Heparin-induced thrombocytopenia Other congenital or acquired thrombophilia Stroke (< 1 month) Elective arthroplasty Hip, pelvis, or leg fracture Acute spinal cord injury (< 1 month) Prophylaxis Regimen Total Risk Factor Score Risk Level Prophylaxis Regimen 0-1 Low Early ambulation 2 Moderate Order ONE of the following: *Sequential Compression Device (SCD) *Heparin 5000 units SQ BID 3-4 Higher Order ONE of the following medications: *Heparin 5000 units SQ TID *Enoxaparin/Lovenox 40 mg SQ daily (WT < 150 kg, CrCl > 30 mL/min) *Enoxaparin/Lovenox 30 mg SQ daily (WT < 150 kg, CrCl > 10-29 mL/min) *Enoxaparin/Lovenox 30 mg SQ BID (WT < 150 kg, CrCl > 30 mL/min) AND/OR *Sequential Compression Device (SCD) 5 or more Highest Order ONE of the following medications: *Heparin 5000 units SQ TID (Preferred with Epidurals) *Enoxaparin/Lovenox 40 mg SQ daily (WT < 150 kg, CrCl > 30 mL/min) *Enoxaparin/Lovenox 30 mg SQ daily (WT < 150 kg, CrCl > 10-29 mL/min) *Enoxaparin/Lovenox 30 mg SQ BID (WT < 150 kg, CrCl > 30 mL/min) AND *Sequential Compression Device (SCD) Assessment and Plan Assessment and Plan Assessment: 57-year-old female with an unknown past medical history presents with the complaint EMS of GI bleeding, however in our emergency department presents with acute encephalopathy, fever, leukocytosis, seizures. Certainly meningitis would need to be in the differential. We will continue sedation. Obtain EEG. Alcohol withdrawal could present this way. It is unclear where this history of GI bleeding comes from, however her hemoglobin is normal and she has no evidence of upper GI bleed or any CT abdomen evidence of bleeding anywhere. We'll continue her on an IV PPI twice a day, but will discontinue octreotide and PPI drips as it appears that this is much more likely to be a neurologic presentation and illness rather than GI bleed. If she does have any active GI bleeding that we witness we will restart these medications. Now she remains very critically ill with acute encephalopathy, acute hypoxic and hypercarbic respiratory failure. Plan by systems: Neurologic: Acute encephalopathy Possible alcohol withdrawal Seizures Fosphenytoin EEG Neurology consult: Dr. Evans Propofol, fentanyl for goal RASS -2 Valium 10 mg by mouth every 8 hours scheduled IV thiamine, multivitamin Frequent neuro checks Respiratory: Acute hypoxic and hypercarbic respiratory failure Lung masses Vent bundle Head of bed at 30 Nebs Wean FiO2 for goal SPO2 greater than 90% No SBT's and formal weaning until mental status improves Will need further outpatient workup for her lung masses, however unlikely to be related to her seizures: Serum sodium is normal, so SIADH secondary lung cancer is unlikely Cardiovascular: Sinus tachycardia Hypertension Hemodynamic symptoms point towards alcohol withdrawal syndrome and much less towards sepsis Hydralazine, labetalol when necessary for goal SBP less than 160 Renal: Place [place] for strict I's and O's -- Strict I/Os FEN/GI: Acute protein calorie malnutrition- moderate Questionable partial small bowel obstruction on CT Possible GI bleeding Keep nothing by mouth for now Normal saline at 100 cc an hour ICU electrolyte protocol IV twice a day PPI DC octreotide drip Serial H&H Heme/ID: Possible GI bleeding Leukocytosis Fever Possible meningitis Vancomycin with pharmacy dosing Rocephin 2 g IV every 12 hours Azithromycin 500 mg IV every 24 hours Follow-up sputum, blood, urine, CSF cultures CSF counts not consistent with bacterial meningitis Trend daily BMP Serial H&H: First hemoglobin on CBC is normal, unlikely to be active GI bleed Endocrine: Hyperglycemia of critical illness -- SSI Prophylaxis: GI Prophylaxis IV twice a day PPI DVT Prophylaxis -- SCDs Hold pharmacologic DVT prophylaxis given chief complaint EMS was GI bleeding. If hemoglobin is remains stable we'll start DVT prophylaxis tomorrow Lines: Peripheral IVs Almanza Dispo: To ICU. Remains critically ill This patient remains critically ill with one or more organ systems which are or may become a threat to life. I have spent in excess of 63 minutes discontinuously in the care and management of this patient. This time is exclusive of procedures, and includes, but is not limited to, evaluation of the patient, review of the medical record, discussions with family, consultants, nursing staff, or respiratory therapy, and documentation in the medical record. Daniel Chandra MD Jul 01, 2017 17:05
--- NOTE | 2017-07-01 18:14 | MG ---
cc: JULEE EVANS M.D. Lab No: Date: Age: 57 Sex: F Race: HISTORY: A stat EEG was obtained on this 57-year-old patient with history of apparent new onset seizures. MEDICATIONS: The patient is intubated on Diprivan and fentanyl. DESCRIPTION OF THE RECORD: The EEG shows essentially asleep activity mostly throughout. Intermittently there are some bilateral sharp waves with phase reversible, some intermixed faster rhythms of low to mid amplitude. This activity is somewhat suspicious for an epileptiform discharge but it is subtle. There are some sleep spindles and there are theta and some delta rhythms. There is no distinct asymmetry. It appears that the patient had been given some extra propofol to be more cooperative for the EEG. On a couple of occasions, the patient awakens and there is some artifact. There might be some mild rhythmicity of faster alpha rhythms intermixed with this artifact. This is seen on epoch 54 and also 112. There is a duration of half a minute and some perhaps slowing in a generalized manner after each time. Photic stimulation disclosed no significant change though the second episode of artifact with some rhythmicity is seen during photic stimulation. INTERPRETATION: Abnormal EEG because of generalized slowing, some sharp waves / discharges bilaterally and some intermittent "awakening" with artifact and some "rhythmicity". This is a subtle finding but I wonder if it represents some brief ictal activity. Clinical correlation and EEG follow up might be of benefit. Julee Evans MD [facility] /5:38 PM /5:57 PM
--- NOTE | 2017-07-01 18:54 | MB ---
cc: JULEE FRANKLIN M.D. DATE OF CONSULTATION: 07/01/2017. REASON FOR CONSULTATION: HISTORY OF PRESENT ILLNESS: This is a 57-year-old woman and I spoke to the emergency department physician on a couple of occasions this morning when she came to the emergency room initially as a stroke alert. It appears that she had been having some vomiting for a few days and came by the [facility] and she was noted to become obtunded and had gaze deviation and she was reportedly looking to the right continually and severely hemiparetic I believe on the left side. During the CT brain, she went to develop a full-blown generalized tonic clonic seizure. She was given Dilantin at that point. She was not felt to be a candidate for tPA as her diagnosis appeared to be seizure instead of ischemic stroke and she also had been having some sort of symptoms for a couple of days. So far an evaluation showed a lung mass, possibly a cancer. We do not have much more history on this patient. No family around. She is intubated on a ventilator and when I saw her about an hour ago, she was still having a little bit of very mild chronic twitching involving the legs, perhaps the left more than the right posterior type and some of the upper body and then she went into coughing and had some tachycardia. She intermittently seemed to move all four extremities on stimulation but was not following commands. Other data includes white count of 21.6, hemoglobin 14.7, platelet count 518,000. The CT brain is unremarkable. EKG shows sinus tachycardia. ASSESSMENT: This appears to be a new onset seizure with an unremarkable CT brain. A chest x-ray and CT chest are showing a right lung mass possibly carcinoma. I ordered a stat EEG and I am going to be checking on this very soon. We may need to add anticonvulsants. She has been on propofol and this also might need to be increased in order to achieve better seizure control. I discussed this being cancer with Dr. Chandra. There is a question of alcohol withdrawal as well and she is on thiamine. With the finding of lung mass, I am going to obtain an MRI brain with and without contrast to look for metastatic disease as a possibility as well. Continue fosphenytoin for now. Thank you for asking us to assist in her care. MD KIKE Nunez/[facility] /5:18 PM /6:39 PM
[2017-07-01] MEDS: DIAZEPAM 10 MG TAB PO SCH (19:46)
[2017-07-01] MEDS ORDERED: MULTIVITAMIN INJ 10 ML, THIAMINE INJ 100 MG, FOLIC ACID INJ 1 MG in SODIUM CHLOR 0.45% ... IV ONE (20:00)
[2017-07-01] MEDS ORDERED: GADODIAMIDE PF 287 MG/ML 10 ML VIAL (for RAD MRI) IVCONTRAST ONE (20:19)
--- NOTE | 2017-07-01 20:52 | RADRPT ---
EXAM DATE/TIME: 07/01/2017 20:10 [facility] COMPARISON: No previous studies available for comparison. INDICATIONS : Mass. Seizure. CONTRAST: 10 cc Omniscan (gadodiamide) IV MEDICAL HISTORY : SURGICAL HISTORY : Left femur, abdominal embolization ENCOUNTER: Initial ACUITY: 1 day PAIN SCORE: 0/10 LOCATION: cranial TECHNIQUE: Multiplanar, multisequence MRI of the brain was performed both prior to and following the administrat ion of paramagnetic contrast. FINDINGS: There is abnormal scattered gyriform type signal abnormality in the cerebral and cerebellar hemispher es bilaterally. The pattern is less apparent on T1 and T2-weighted images and there is no significant abnormal signal in the diffusion weighted images. Postcontrast there is no significant enhancement. The findings are nonspecific. Differential diagnosis includes some form of cerebritis/encephalitis or reversible encephalopathy. Conceivably anoxic injury could give a similar appearance. No mass effect or midline shift. No hydrocephalus. No abnormal enhancing lesions. CONCLUSION: 1. Multifocal abnormal gyriform signal abnormality in both hemispheres as above, predominantly seen o n the flair images. Findings are nonspecific. Differential diagnosis includes cerebritis or some othe r form of encephalopathy. Consider anoxic injury. No enhancement seen to suggest metastatic disease. No abnormal signal on diffusion-weighted images to suggest recent infarct. Alfonso Tillman MD on July 01, 2017 at 20:39 Board Certified Radiologist. This report was verified electronically.
[2017-07-01] MEDS: CHLORHEXIDINE 0.12% (ORAL KIT) 15 ML CUP MT SCH (21:13)
[2017-07-01] MEDS: DOCUSATE SODIUM 50 MG/SENNA 8.6 MG TAB PO SCH (21:48)
[2017-07-01] MEDS: PHENYTOIN INJ 100 MG/2 ML VIAL IV PUSH SCH (21:49)
[2017-07-01] MEDS: cloNIDine HCL 0.3 MG TAB PO SCH ×2 (21:49→23:00)
[2017-07-01 22:33] LABS: HEMATOCRIT 35.7 % (35.0-46.0); REVIEW FLAG FINAL
[2017-07-02] VITALS (24 sets, daily range): BP systolic 78–103; BP diastolic 48–61; PULSE 63–105; RESP 15–19; TEMP 97.7–98.5; O2SAT 100
[2017-07-02] MEDS: DIAZEPAM 10 MG TAB PO SCH ×3 (00:59→19:17)
[2017-07-02] MEDS: PANTOPRAZOLE SODIUM 40 MG VIAL IV PUSH SCH ×2 (00:59→15:08)
[2017-07-02] MEDS: cefTRIAXone INJ 2,000 MG in SODIUM CHLORIDE 0.9% INJ 100 ML IV SCH ×2 (01:00→15:12)
[2017-07-02] MEDS: THIAMINE INJ 100 MG in SODIUM CHLORIDE 0.9% INJ 100 ML IV SCH (01:00)
[2017-07-02] MEDS: POTASSIUM CHLOR 20 MEQ PREMIX 100 ML IV PRN ×2 (02:01→05:39)
[2017-07-02] MEDS: fentaNYL DRIP 250 ML IV PRN ×3 (02:24→23:15)
[2017-07-02] MEDS: RESP: ALBUTEROL 2.5 MG/IPRATROPIUM 0.5 MG NEB (SCH) INH ×4 (03:35→23:04)
[2017-07-02] MEDS: PROPOFOL 1000 MG/100 ML INJ 100 ML IV PRN ×3 (04:00→20:35)
[2017-07-02] MEDS: CHLORHEXIDINE GLUCONATE 2 % 1 PACK (2 CLOTHS) TOP SCH (04:00)
[2017-07-02 04:22] LABS: HEMATOCRIT 31.5 % (35.0-46.0); MEAN CORPUSCULAR HEMOGLOBIN 30.4 PG (27.0-34.0); MEAN CORPUSCULAR HGB CONC 33.4 % (32.0-36.0); PLATELET COUNT 295 TH/MM3 (150-450); RED BLOOD COUNT 3.47 MIL/MM3 (4.00-5.30); RED CELL DISTRIBUTION WIDTH 14.8 % (11.6-17.2); REVIEW FLAG FINAL; WHITE BLOOD COUNT 13.2 TH/MM3 (4.0-11.0)
[2017-07-02] MEDS: PHENYTOIN INJ 100 MG/2 ML VIAL IV PUSH SCH ×3 (05:38→21:00)
[2017-07-02] MEDS: cloNIDine HCL 0.3 MG TAB PO SCH ×3 (05:38→21:00)
[2017-07-02] MEDS: INSULIN NovoLIN REGULAR SUPPLEMENTAL SCALE SQ SCH ×4 (05:38→18:00)
[2017-07-02] MEDS: CHLORHEXIDINE 0.12% (ORAL KIT) 15 ML CUP MT SCH ×2 (08:00→19:18)
--- NOTE | 2017-07-02 08:27 | HHI.CCPN ---
Subjective Remarks/Hospital Course Hospital Course: This is a 57-year-old female with an unknown past medical history who presented by EMS with the complaint of vomiting blood times a few days per report. Unfortunately, when she was evaluated by the ER physician, she was obtunded with a gaze deviation and hypoxic on room air. She was emergently intubated. During stat head CT, she had a witnessed generalized tonic-clonic seizure. She was given fosphenytoin. Neurology was consulted for possible stroke alert, but given questionable GI bleed and witnessed seizure, TPA was not administered. In the emergency department, however she was febrile to 100.6F, tachycardic, hypertensive. LP was performed in the emergency department which showed normal glucose, normal protein, with clear CSF. OG tube was placed without coffee grounds emesis or significant output. I personally instilled 300mL free water into the OG tube and hooked it up to LIWS and did not get any coffee grounds or bright red bloody output, only clear liquid output from her OG tube. Screening chest x-ray post intubation demonstrated right hilar mass. Follow-up CT chest abdomen and pelvis with IV contrast demonstrated multiple lung lesions concerning for a static lung cancer. CT abdomen and pelvis demonstrated possible small bowel obstruction with significant stool burden in the sigmoid and rectum. Lactate is normal. She does have leukocytosis to 20,000. No additional information is available from the patient. ROS is unobtainable Subjective: 07/02: MRI last night with concern for possible cerebritis vs. encephalitis. EEG with ? seizure spikes. neuro following. patient follows commands this morning x 4. given concern for encephalitis, ampicillin and acyclovir were added this morning. cultures NGTD. wbc downtrending. Objective Vital Signs Date Time Temp Pulse Resp B/P (MAP) Pulse Ox O2 Delivery O2 Flow Rate FiO2 07/02/17 06:00 77 07/02/17 04:29 100 40 07/02/17 04:00 97.7 15 89/59 (69) 07/01/17 12:30 Ventilator 07/01/17 10:07 6.00 Intake and Output 07/02/17 07/02/17 07/03/17 08:00 16:00 00:00 Intake Total 1899.6 ml Output Total 385 ml Balance 1514.6 ml Result Diagram: 07/02/17 0329 07/01/17 0950 Other Results Laboratory Tests Test 07/01/17 10:46 Blood Gas Puncture Site RT BRACHIAL Blood Gas Patient Temperature 98.6 Blood Gas HCO3 19 mmol/L (22-26) Blood Gas Base Excess -5.2 mmol/L (-2-2) Blood Gas Oxygen Saturation 98 % (90-100) Arterial Blood pH 7.39 (7.380-7.420) Arterial Blood Partial Pressure CO2 32 mmHg (38-42) Arterial Blood Partial Pressure O2 488 mmHg (61-120) Arterial Blood Oxygen Content 18.7 Vol % (12.0-20.0) Arterial Blood Carboxyhemoglobin 1.1 % (0-4) Arterial Blood Methemoglobin 0.9 % (0-2) Blood Gas Hemoglobin 12.7 G/DL (12.0-16.0) Oxygen Delivery Device VENTILATOR Blood Gas Ventilator Setting A/C16/500/PEEP5 Blood Gas Inspired Oxygen 100 % Imaging Last Impressions Head CT 07/01/17 0937 Signed Impressions: Service Date/Time: Saturday, July 01, 2017 09:49 - CONCLUSION: No acute intracranial abnormality. Nader Mata MD Chest X-Ray 07/01/17 0937 Signed Impressions: Service Date/Time: Saturday, July 01, 2017 10:36 - CONCLUSION: 1. 2.5 cm right perihilar mass. CT of the chest with contrast would be helpful for further evaluation of this suspicious lesion. 2. Endotracheal tube in good position 3 cm above the chidi. Nader Mata MD Chest CT 07/01/17 0000 Signed Impressions: Service Date/Time: Saturday, July 01, 2017 12:35 - CONCLUSION: 1. Centrally-located perihilar right upper lobe mass measuring 2.8 x 2.5 cm which is suggestive of bronchogenic carcinoma until proven otherwise. Biopsy via bronchoscopy should be attempted initially as this appears to be easily accessible from the right upper lobe bronchus. 2. Scattered much smaller noncalcified nodules within the right upper lobe suggesting metastatic disease. 3. Right hilar lymphadenopathy measuring 1.7 x 1.4 cm. 4. Partially-calcified, somewhat-spiculated right upper lobe nodule measuring 13 x 11 mm which is indeterminate. 5. 10 mm calcified granuloma within the left upper lobe. 6. Minimal posterior atelectatic changes and pleural thickening bilaterally. 7. Coronary artery calcifications. 8. Moderate compression deformity involving T12 which is likely chronic. Nader Mata MD Abdomen/Pelvis CT 07/01/17 0000 Signed Impressions: Service Date/Time: Saturday, July 01, 2017 12:35 - CONCLUSION: 1. Distended stomach and jejunum with transition point in the left lower quadrant. Findings are consistent with at least a partial small bowel obstruction. No evidence for perforation or bowel infarction at this time. 2. Slight prominence of the common bile duct and central intrahepatic ducts with mild gallbladder distention. This may be due to the small bowel dilatation but distal CBD obstruction cannot be entirely excluded. This can be further evaluated with HIDA scan as clinically warranted. 3. 1.4 x 1.9 cm left adrenal mass. This can be further evaluated with PET scan if patient is confirmed to have a lung mass. 4. Ancillary findings, as above. Jaylen Sheldon MD Objective Remarks GENERAL: Middle-aged female who appears older than stated age, lying in bed, intubated, sedated, critically ill HEENT: Normocephalic. Atraumatic. Pupils equal, round, reactive, conjugate. Mucous membranes are moist NECK: Trachea is midline. There is no JVD. CHEST:. Equal Chest rise. PRVC, 40% FiO2, PEEP 5. CARDIOVASCULAR: Tachycardic rate, regular rhythm. Sinus by telemetry ABDOMEN: Soft, nontender, nondistended. No guarding. OGT with minimal output. MUSCULOSKELETAL: Pulses 2+. No peripheral edema. NEUROLOGICAL: RASS -3/+1. Intermittently agitated. Obtunded. Moves all extremities spontaneously, but does not follow commands. A/P Assessment and Plan Assessment: 57-year-old female with an unknown past medical history presents with the complaint EMS of GI bleeding, however in our emergency department presents with acute encephalopathy, fever, leukocytosis, seizures. MRI with possible evidence of cerebritis vs. encephalitis. continue frequent neuro checks. add acyclovir and ampicillin. remains critically ill and off pathway with multiple acute life-threatening organ dysfunctions. Plan by systems: Neurologic: Acute encephalopathy Possible alcohol withdrawal Seizures Possible cerebritis/encephalitis Fosphenytoin EEG 07/01: possible ictal spikes Neurology consult: Dr. Evans Propofol, fentanyl for goal RASS -2 Valium 10 mg by mouth every 8 hours scheduled IV thiamine, multivitamin Frequent neuro checks send CSF VDRL, VZV, encephalitis panel, crypto Ag send HIV add acyclovir, ampicillin Respiratory: Acute hypoxic and hypercarbic respiratory failure Lung masses Vent bundle Head of bed at 30 Nebs Wean FiO2 for goal SPO2 greater than 90% daily SBTs Will need further outpatient workup for her lung masses, however unlikely to be related to her seizures: Serum sodium is normal, so SIADH secondary lung cancer is unlikely Cardiovascular: Sinus tachycardia Hypertension Hemodynamic symptoms point towards alcohol withdrawal syndrome and much less towards sepsis Hydralazine, labetalol when necessary for goal SBP less than 160 Renal: continue Almanza for strict I's and O's -- Strict I/Os FEN/GI: Acute protein calorie malnutrition- moderate Questionable partial small bowel obstruction on CT- resolved. Possible GI bleeding patient having regular bowel movements, soft abdomen. no signs of GI bleeding or obstruction. start TF: jevity 1.5 goal rate 60, nutrition consult for goal recs. Normal saline at 100 cc an hour ICU electrolyte protocol IV twice a day PPI Serial H&H Heme/ID: Possible GI bleeding Leukocytosis - improving. Fever Possible meningitis/encephalitis/cerebritis Vancomycin with pharmacy dosing Rocephin 2 g IV every 12 hours Azithromycin 500 mg IV every 24 hours Acyclovir 10mg/kg iv q8h ampicillin 2gm iv q4h. Follow-up sputum, blood, urine, CSF cultures CSF counts not consistent with bacterial meningitis Trend daily BMP Serial H&H: First hemoglobin on CBC is normal, unlikely to be active GI bleed send HIV CSF crypto CSF VDRL CSF encephalitis panel CSF VZV CSF HSV Endocrine: Hyperglycemia of critical illness -- SSI Prophylaxis: GI Prophylaxis IV twice a day PPI DVT Prophylaxis -- SCDs Hold pharmacologic DVT prophylaxis given chief complaint EMS was GI bleeding. hgb slightly downtrended. will hold an additional 24h. Lines: Peripheral IVs Almanza Dispo: remain in ICU. Remains critically ill This patient remains critically ill with one or more organ systems which are or may become a threat to life. I have spent in excess of 50 minutes discontinuously in the care and management of this patient. This time is exclusive of procedures, and includes, but is not limited to, evaluation of the patient, review of the medical record, discussions with family, consultants, nursing staff, or respiratory therapy, and documentation in the medical record. Daniel Chandra MD Jul 02, 2017 08:27
[2017-07-02] MEDS: AMPICILLIN INJ 2,000 MG in SODIUM CHLORIDE 0.9% INJ 100 ML IV SCH ×5 (09:00→21:00)
[2017-07-02] MEDS ORDERED: SODIUM CHLORIDE 0.9% IV SCH (09:00)
[2017-07-02] MEDS ORDERED: ACYCLOVIR IV SCH (09:00)
[2017-07-02] MEDS: MULTIVITAMIN TAB PO SCH (09:00)
[2017-07-02] MEDS: DOCUSATE SODIUM 50 MG/SENNA 8.6 MG TAB PO SCH ×2 (09:00→21:00)
[2017-07-02] MEDS: SODIUM CHLOR 0.9% 1000 ML INJ 1,000 ML IV SCH ×2 (11:30→18:08)
[2017-07-02] MEDS: ACYCLOVIR IV SCH ×2 (11:45→19:17)
[2017-07-02] MEDS: SODIUM CHLORIDE 0.9% IV SCH ×2 (11:45→19:17)
--- NOTE | 2017-07-02 12:11 | HHI.PR ---
Review/Management Daily Summary 07/02 no seizures mri brain seen csf seen mri findings puzzle looks better, sedated but follows commands and moves 4 limbs, on vent will add mra head and MR Venous head add csf cytology Subjective Subjective Comments reportedly better per RN Active Medications Current Medications Medications (Trade) Dose Ordered Sig/Kelsie Route Start Time Stop Time Status Last Admin (NS Flush) 2 ml UNSCH PRN IVF 07/01/17 09:45 07/01/17 10:37 (NS Flush) 2 ml UNSCH PRN IV FLUSH 07/01/17 09:45 (NS Flush) 2 ml UNSCH PRN IVF 07/01/17 10:15 Propofol 100 ml @ 1.905 mls/ hr TITRATE PRN IV 07/01/17 10:15 07/02/17 04:00 (Peridex 0.12% Liq) 15 ml BID@08,20 MT 07/01/17 20:00 07/02/17 08:00 (Mag-Ox) 800 mg UNSCH PRN PO 07/01/17 10:45 Magnesium Sulfate 4 gm/Sodium Chloride 100 ml @ 50 mls/hr UNSCH PRN IV 07/01/17 10:45 Magnesium Sulfate 2 gm/Sodium Chloride 100 ml @ 50 mls/hr UNSCH PRN IV 07/01/17 10:45 Potassium Chloride 100 ml @ 50 mls/hr Q2H PRN IV 07/01/17 10:45 Potassium Chloride 100 ml @ 50 mls/hr Q2H PRN IV 07/01/17 10:45 07/02/17 05:39 Potassium Chloride 100 ml @ 50 mls/hr Q2H PRN IV 07/01/17 10:45 Potassium Chloride 100 ml @ 25 mls/hr UNSCH PRN IV 07/01/17 10:45 (K-Phos) 2,000 mg Q4H PRN PO 07/01/17 10:45 (K-Phos) 2,000 mg UNSCH PRN PO/TUBE 07/01/17 10:45 Potassium Phosphate 30 mmol/ Sodium Chloride 260 ml @ 42 mls/hr UNSCH PRN IV 07/01/17 10:45 Sodium Phosphate 30 mmol/Sodium Chloride 250 ml @ 42 mls/hr UNSCH PRN IV 07/01/17 10:45 (Trandate Inj) 20 mg Q15M PRN IV PUSH 07/01/17 10:45 (Apresoline Inj) 10 mg Q30M PRN IV PUSH 07/01/17 10:45 (D50w (Vial) Inj) 25 ml UNSCH PRN IV PUSH 07/01/17 10:45 (NovoLIN R SUPPLEMENTAL SCALE) 1 Q6HR SQ 07/01/17 12:00 (Duoneb Neb) 1 ampule Q6HR NEB INH 07/01/17 16:00 07/02/17 08:38 (Duoneb Neb) 1 ampule Q2HR NEB PRN INH 07/01/17 10:45 Sodium Chloride 1,000 ml @ 120 mls/hr Q8H20M IV 07/01/17 10:34 07/02/17 11:30 (Protonix Inj) 40 mg Q12H IV PUSH 07/01/17 14:00 07/02/17 00:59 (Zofran Inj) 4 mg Q6H PRN IV PUSH 07/01/17 10:45 Miscellaneous Information 1 Q361D XX 07/01/17 10:45 (Chlorhexidine 2% Cloth) 3 pack Taper DAILY@04 TOP 07/02/17 04:00 06/28/18 03:59 07/02/17 04:00 (Chlorhexidine 2% Cloth) 3 pack UNSCH PRN TOP 07/01/17 10:45 (Sarah-Colace) 1 tab BID PO 07/01/17 21:00 07/02/17 09:00 Pharmacy Profile Note 0 ml @ 0 mls/hr UNSCH PRN OTHER 07/01/17 10:45 Ceftriaxone Sodium 2000 mg/ Sodium Chloride 100 ml @ 200 mls/hr Q12H IV 07/01/17 14:00 07/02/17 01:00 Azithromycin 500 mg/Sodium Chloride 250 ml @ 250 mls/hr Q24H IV 07/01/17 15:00 07/01/17 15:00 Fentanyl Citrate 250 ml @ 5 mls/hr TITRATE PRN IV 07/01/17 12:30 07/02/17 02:24 Vancomycin HCl 1250 mg/Sodium Chloride 262.5 ml @ 250 mls/hr Q24H IV 07/01/17 15:00 07/01/17 15:01 Miscellaneous Information SPECIFIC LAB TO BE JARROD... ONCE ONCE .XX 07/04/17 14:45 07/04/17 14:46 (Valium) 10 mg Q8H PO 07/01/17 17:00 07/02/17 09:00 (Catapres) 0.3 mg Q8HR PO 07/01/17 17:00 07/01/17 23:00 Thiamine HCl 100 mg/Sodium Chloride 101 ml @ 101 mls/hr Q24H IV 07/02/17 02:00 07/03/17 02:59 07/02/17 01:00 (Vitamin B1) 100 mg DAILY PO 07/05/17 09:00 (Theragran) 1 tab DAILY PO 07/02/17 09:00 07/02/17 09:00 (Dilantin Inj) 100 mg Q8HR IV PUSH 07/01/17 22:00 07/02/17 05:38 Ampicillin Sodium 2000 mg/Sodium Chloride 100 ml @ 400 mls/hr Q4H IV 07/02/17 09:00 07/02/17 09:00 Acyclovir Sodium 575 mg/Sodium Chloride 100 ml @ 100 mls/hr Q8H IV 07/02/17 10:00 07/02/17 11:45 Allergies Allergies Coded Allergies Unable to Assess (Verified Allergy, Unknown, 07/01/17) Exam I&O / VS 07/02/17 07/02/17 07/03/17 14:59 22:59 06:59 Intake Total 100 ml Balance 100 ml Intake IV Total 100 ml Vital Signs Date Time Temp Pulse Resp B/P (MAP) Pulse Ox O2 Delivery O2 Flow Rate FiO2 07/02/17 11:10 100 40 07/02/17 10:00 68 07/02/17 09:00 74 07/02/17 08:38 100 40 07/02/17 08:00 67 07/02/17 08:00 98.0 67 15 103/59 (74) 100 07/02/17 08:00 40 07/02/17 07:00 64 07/02/17 06:00 77 07/02/17 04:29 100 40 07/02/17 04:00 97.7 65 15 89/59 (69) 100 07/02/17 04:00 66 07/02/17 04:00 40 07/02/17 02:00 67 07/02/17 01:10 100 40 07/02/17 00:00 98.0 72 15 87/56 (66) 100 07/02/17 00:00 40 07/02/17 00:00 72 07/01/17 22:11 100 40 07/01/17 22:00 84 07/01/17 21:45 99.5 85 15 128/78 (95) 100 07/01/17 20:00 102 07/01/17 20:00 40 07/01/17 19:47 100 40 07/01/17 18:00 95 07/01/17 17:32 100 40 07/01/17 17:00 97 07/01/17 16:00 98.5 101 17 143/96 (112) 100 07/01/17 16:00 101 07/01/17 15:00 92 07/01/17 14:00 93 07/01/17 13:11 07/01/17 13:00 100 07/01/17 12:52 100 100 07/01/17 12:51 97 50 07/01/17 12:30 102 16 156/86 (109) 100 Ventilator 50 Objective Radiology Results Last [address] 07/01/17936 Signed Impressions: Service Date/Time: Saturday, July 01, 2017 09:49 - CONCLUSION: No acute intracranial abnormality. Nader Mata MD Chest X-Ray 07/01/17936 Signed Impressions: Service Date/Time: Saturday, July 01, 2017 10:36 - CONCLUSION: 1. 2.5 cm right perihilar mass. CT of the chest with contrast would be helpful for further evaluation of this suspicious lesion. 2. Endotracheal tube in good position 3 cm above the chidi. Nader Mata MD Chest CT 07/01/17 0000 Signed Impressions: Service Date/Time: Saturday, July 01, 2017 12:35 - CONCLUSION: 1. Centrally-located perihilar right upper lobe mass measuring 2.8 x 2.5 cm which is suggestive of bronchogenic carcinoma until proven otherwise. Biopsy via bronchoscopy should be attempted initially as this appears to be easily accessible from the right upper lobe bronchus. 2. Scattered much smaller noncalcified nodules within the right upper lobe suggesting metastatic disease. 3. Right hilar lymphadenopathy measuring 1.7 x 1.4 cm. 4. Partially-calcified, somewhat-spiculated right upper lobe nodule measuring 13 x 11 mm which is indeterminate. 5. 10 mm calcified granuloma within the left upper lobe. 6. Minimal posterior atelectatic changes and pleural thickening bilaterally. 7. Coronary artery calcifications. 8. Moderate compression deformity involving T12 which is likely chronic. Nader Mata MD Brain MRI 07/01/17 0000 Signed Impressions: Service Date/Time: Saturday, July 01, 2017 20:10 - CONCLUSION: 1. Multifocal abnormal gyriform signal abnormality in both hemispheres as above, predominantly seen on the flair images. Findings are nonspecific. Differential diagnosis includes cerebritis or some other form of encephalopathy. Consider anoxic injury. No enhancement seen to suggest metastatic disease. No abnormal signal on diffusion-weighted images to suggest recent infarct. Alfonso Tillman MD Abdomen/Pelvis CT 07/01/17 0000 Signed Impressions: Service Date/Time: Saturday, July 01, 2017 12:35 - CONCLUSION: 1. Distended stomach and jejunum with transition point in the left lower quadrant. Findings are consistent with at least a partial small bowel obstruction. No evidence for perforation or bowel infarction at this time. 2. Slight prominence of the common bile duct and central intrahepatic ducts with mild gallbladder distention. This may be due to the small bowel dilatation but distal CBD obstruction cannot be entirely excluded. This can be further evaluated with HIDA scan as clinically warranted. 3. 1.4 x 1.9 cm left adrenal mass. This can be further evaluated with PET scan if patient is confirmed to have a lung mass. 4. Ancillary findings, as above. Jaylen Sheldon MD Micro and Labs Laboratory Tests Test 07/01/17 22:06 07/02/17 03:29 Hemoglobin 11.8 10.5 Hematocrit 35.7 31.5 Phenytoin (Dilantin) Level 8.3 White Blood Count 13.2 Red Blood Count 3.47 Mean Corpuscular Volume 91.0 Mean Corpuscular Hemoglobin 30.4 Mean Corpuscular Hemoglobin Concent 33.4 Red Cell Distribution Width 14.8 Platelet Count 295 Mean Platelet Volume 7.0 Date/Time Source Procedure Growth Status 07/01/17 09:50 Blood Peripheral Aerobic Blood Culture - Preliminary NO GROWTH IN 1 DAY Resulted 07/01/17 09:50 Blood Peripheral Anaerobic Blood Culture - Preliminary NO GROWTH IN 1 DAY Resulted 07/01/17 11:05 Cerebral Spinal Fluid Lumbar Puncture Gram Stain - Final Resulted 07/01/17 11:05 Cerebral Spinal Fluid Lumbar Puncture CSF Culture - Preliminary NO GROWTH IN 24 HOURS. Resulted 07/01/17 11:15 Sputum Endotracheal Gram Stain - Final Resulted 07/01/17 11:15 Sputum Endotracheal Sputum Culture Pending Resulted 07/01/17 10:50 Urine Clean Catch Urine Culture - Preliminary NO GROWTH IN 24 HOURS. Resulted Tani Evans MD Jul 02, 2017 12:10
[2017-07-02] MEDS ORDERED: MIDAZOLAM HCL 5 MG/5 ML VIAL IV PUSH ONE (13:45)
[2017-07-02] MEDS: VANCOMYCIN INJ 1,250 MG in SODIUM CHLOR 0.9% 250 ML INJ 250 ML IV SCH (15:09)
[2017-07-02 15:14] LABS: HEMATOCRIT 26.7 % (35.0-46.0); REVIEW FLAG FINAL
[2017-07-02 15:43] LABS: POTASSIUM 3.9 MEQ/L (3.5-5.1)
[2017-07-02] MEDS: AZITHROMYCIN INJ 500 MG in SODIUM CHLOR 0.9% 250 ML INJ 250 ML IV SCH (16:31)
--- NOTE | 2017-07-02 18:26 | RADRPT ---
EXAM DATE/TIME: 07/02/2017 17:21 COMPARISON: MRI BRAIN W & W/O CONTRAST, July 01, 2017, 20:10. INDICATIONS : Altered mental status. CONTRAST: 20 cc Omniscan (gadodiamide) IV MEDICAL HISTORY : None. SURGICAL HISTORY : Left femur repair, Abdominal embolization. ENCOUNTER: Initial ACUITY: 1 day PAIN SCORE: 0/10 LOCATION: cranial FINDINGS: The dural sinuses are all patent. No areas of dural venous sinus obstruction are seen. CONCLUSION: Negative MRV. Gerry Briscoe MD on July 02, 2017 at 18:23 Board Certified Radiologist. This report was verified electronically.
--- NOTE | 2017-07-02 18:28 | RADRPT ---
EXAM DATE/TIME: 07/02/2017 17:21 [facility] COMPARISON: No previous studies available for comparison. INDICATIONS : Altered mental status. MEDICAL HISTORY : None. SURGICAL HISTORY : Left femur ORIF, Abdominal embolization. ENCOUNTER: Initial ACUITY: 1 day PAIN SCORE: 0/10 LOCATION: cranial Please note a normal MRA of the brain does not entirely exclude the possibility of a small aneurysm, nor the possibility of distal intracranial vessel disease. TECHNIQUE: 3D time of flight MRA was performed. Source images, multiplanar STS MIP, and 3D volume MIP reconstru ctions were reviewed. FINDINGS: There is excellent visualization of the major intracranial arteries out to the second-order branch ve ssels. There is no evidence for aneurysm, vessel truncation or stenosis, and no evidence for vascula r malformation. CONCLUSION: Negative MRA of the intracranial circulation. Gerry Briscoe MD on July 02, 2017 at 18:25 Board Certified Radiologist. This report was verified electronically.
[2017-07-02] MEDS ORDERED: GADODIAMIDE PF 287 MG/ML 20 ML VIAL (for RAD MRI) IVCONTRAST ONE (18:50)
[2017-07-02] MEDS ORDERED: MIDAZOLAM HCL 5 MG/ML VIAL (1 ML) ONE (22:19)
--- NOTE | 2017-07-02 22:45 | PD.PROCEDR ---
Procedure Note Procedure DATE: 07/02/17 CENTRAL LINE PLACEMENT: Right internal jugular vein. INDICATION: Central venous access CONSENT Informed consent for procedure was obtained from patients son after discussion of risks, benefits, alternatives. DESCRIPTION OF THE PROCEDURE The patient was placed in supine position, mild Trendelenburg. The skin was cleansed with Chloraprep 4. Additional barrier precautions included large sterile drape, sterile gloves, sterile gown, face mask, and hat. 1 % lidocaine was used for local anesthesia. Under direct ultrasound guidance and on single attempt, the vein was accessed with an introducer needle. The guide wire was advanced and the tract was dilated. Using Seldinger technique a 7 Slovak 20 cm antimicrobial coated triple-lumen catheter was advanced to a depth of 18 centimeters. The guide wire was removed. All ports had good return of dark venous blood and flushed easily with saline. The central line was secured with Stat-lock. A sterile dressing with antibiotic disc was applied. ESTIMATED BLOOD LOSS: Minimal COMPLICATIONS: No apparent complications. STAT chest x-ray is pending Evelyne Hein MD Jul 02, 2017 22:45
--- NOTE | 2017-07-02 23:22 | RADRPT ---
EXAM DATE/TIME: 07/02/2017 22:47 [facility] COMPARISON: CT THORAX W CONTRAST, July 01, 2017, 12:35. CHEST SINGLE AP, July 01, 2017, 10:36. INDICATIONS : Right internal jugular central line placement. MEDICAL HISTORY : Hypertension. SURGICAL HISTORY : None. ENCOUNTER: Subsequent ACUITY: 2 days PAIN SCORE: Non-responsive. LOCATION: Right chest FINDINGS: ET tube, NG tube, and right internal jugular central line are well placed. The tip of the right inter nal jugular central line overlies the upper right atrium. No pneumothorax is seen. The heart size is normal. There is a 3 cm right perihilar mass and a smaller 1.5 cm right upper lobe mass. The patient had a CT examination of the chest performed on 07/01/2017 which more fully delineates the lungs. The lungs appear otherwise clear on this chest x-ray. No effusion is seen. CONCLUSION: 1. Tubes and lines in good position. No pneumothorax is seen. 2. Right lung masses. Gerry Briscoe MD on July 02, 2017 at 23:17 Board Certified Radiologist. This report was verified electronically.
[2017-07-03] VITALS (23 sets, daily range): BP systolic 87–134; BP diastolic 54–82; PULSE 69–219; RESP 12–24; TEMP 97.7–99; O2SAT 98–100
[2017-07-03] MEDS: AMPICILLIN INJ 2,000 MG in SODIUM CHLORIDE 0.9% INJ 100 ML IV SCH ×6 (01:00→20:59)
[2017-07-03] MEDS: DIAZEPAM 10 MG TAB PO SCH ×3 (01:10→18:19)
[2017-07-03] MEDS: ACYCLOVIR IV SCH ×3 (01:25→18:19)
[2017-07-03] MEDS: SODIUM CHLORIDE 0.9% IV SCH ×3 (01:25→18:19)
[2017-07-03] MEDS: PANTOPRAZOLE SODIUM 40 MG VIAL IV PUSH SCH ×2 (01:26→15:02)
[2017-07-03] MEDS: THIAMINE INJ 100 MG in SODIUM CHLORIDE 0.9% INJ 100 ML IV SCH (01:26)
[2017-07-03] MEDS: cefTRIAXone INJ 2,000 MG in SODIUM CHLORIDE 0.9% INJ 100 ML IV SCH ×2 (01:26→14:00)
[2017-07-03 01:55] LABS: HEMATOCRIT 27.7 % (35.0-46.0); REVIEW FLAG FINAL
[2017-07-03] MEDS: SODIUM CHLOR 0.9% 1000 ML INJ 1,000 ML IV SCH ×3 (02:28→23:30)
[2017-07-03] MEDS: PROPOFOL 1000 MG/100 ML INJ 100 ML IV PRN (03:46)
[2017-07-03] MEDS: CHLORHEXIDINE GLUCONATE 2 % 1 PACK (2 CLOTHS) TOP SCH (03:49)
[2017-07-03] MEDS: RESP: ALBUTEROL 2.5 MG/IPRATROPIUM 0.5 MG NEB (SCH) INH ×4 (05:10→21:10)
[2017-07-03 05:13] LABS: HEMATOCRIT 31.3 % (35.0-46.0); MEAN CELL VOLUME 92.3 FL (80.0-100.0); MEAN CORPUSCULAR HEMOGLOBIN 31.7 PG (27.0-34.0); MEAN CORPUSCULAR HGB CONC 34.3 % (32.0-36.0); PLATELET COUNT 289 TH/MM3 (150-450); RED BLOOD COUNT 3.39 MIL/MM3 (4.00-5.30); RED CELL DISTRIBUTION WIDTH 15.4 % (11.6-17.2); REVIEW FLAG FINAL; WHITE BLOOD COUNT 10.8 TH/MM3 (4.0-11.0)
[2017-07-03] MEDS: PHENYTOIN INJ 100 MG/2 ML VIAL IV PUSH SCH ×3 (05:25→21:01)
[2017-07-03] MEDS: cloNIDine HCL 0.3 MG TAB PO SCH ×3 (05:27→21:02)
[2017-07-03] MEDS: INSULIN NovoLIN REGULAR SUPPLEMENTAL SCALE SQ SCH ×4 (05:34→18:00)
[2017-07-03] MEDS: DEXTROSE 50% IN WATER 50 ML VIAL(D50) IV PUSH PRN ×2 (05:34→06:01)
[2017-07-03 05:46] LABS: BICARBONATE 23.8 MEQ/L (21.0-32.0); POTASSIUM 3.4 MEQ/L (3.5-5.1)
[2017-07-03] MEDS: CHLORHEXIDINE 0.12% (ORAL KIT) 15 ML CUP MT SCH ×2 (08:00→20:00)
[2017-07-03] MEDS ORDERED: HALOPERIDOL LACTATE 5 MG/ML AMP IV PUSH PRN (08:30)
--- NOTE | 2017-07-03 08:38 | HHI.CCPN ---
Subjective Remarks/Hospital Course Hospital Course: This is a 57-year-old female with an unknown past medical history who presented by EMS with the complaint of vomiting blood times a few days per report. Unfortunately, when she was evaluated by the ER physician, she was obtunded with a gaze deviation and hypoxic on room air. She was emergently intubated. During stat head CT, she had a witnessed generalized tonic-clonic seizure. She was given fosphenytoin. Neurology was consulted for possible stroke alert, but given questionable GI bleed and witnessed seizure, TPA was not administered. In the emergency department, however she was febrile to 100.6F, tachycardic, hypertensive. LP was performed in the emergency department which showed normal glucose, normal protein, with clear CSF. OG tube was placed without coffee grounds emesis or significant output. I personally instilled 300mL free water into the OG tube and hooked it up to LIWS and did not get any coffee grounds or bright red bloody output, only clear liquid output from her OG tube. Screening chest x-ray post intubation demonstrated right hilar mass. Follow-up CT chest abdomen and pelvis with IV contrast demonstrated multiple lung lesions concerning for a static lung cancer. CT abdomen and pelvis demonstrated possible small bowel obstruction with significant stool burden in the sigmoid and rectum. Lactate is normal. She does have leukocytosis to 20,000. No additional information is available from the patient. ROS is unobtainable Subjective: 07/02: MRI last night with concern for possible cerebritis vs. encephalitis. EEG with ? seizure spikes. neuro following. patient follows commands this morning x 4. given concern for encephalitis, ampicillin and acyclovir were added this morning. cultures NGTD. wbc downtrending. 07/03: agitated delirium worsened overnight despite fentanyl, versed, and propofol infusions. pulled out all iv's. central line placed overnight. sputum culture growing GNRs, otherwise cultures NGTD. MRA/MRV negative. still off pathway. Objective Vital Signs Date Time Temp Pulse Resp B/P (MAP) Pulse Ox O2 Delivery O2 Flow Rate FiO2 07/03/17 06:00 73 07/03/17 05:10 100 40 07/03/17 04:00 97.9 24 134/82 (99) 07/01/17 12:30 Ventilator 07/01/17 10:07 6.00 Intake and Output 1207/03/17 07/04/17 08:00 16:00 00:00 Intake Total 1400 ml Output Total 415 ml Balance 985 ml Result Diagram: 07/03/17 0408 07/03/17 0408 Other Results Microbiology Date/Time Source Procedure Growth Status 07/01/17 10:50 Urine Clean Catch Urine Culture - Final NO GROWTH IN 48 HOURS. Complete Imaging Last Impressions Head CT 07/01/17936 Signed Impressions: Service Date/Time: Saturday, July 01, 2017 09:49 - CONCLUSION: No acute intracranial abnormality. Nader Mata MD Chest X-Ray 07/01/17936 Signed Impressions: Service Date/Time: Saturday, July 01, 2017 10:36 - CONCLUSION: 1. 2.5 cm right perihilar mass. CT of the chest with contrast would be helpful for further evaluation of this suspicious lesion. 2. Endotracheal tube in good position 3 cm above the chidi. Nader Mata MD Chest CT 07/01/17 0000 Signed Impressions: Service Date/Time: Saturday, July 01, 2017 12:35 - CONCLUSION: 1. Centrally-located perihilar right upper lobe mass measuring 2.8 x 2.5 cm which is suggestive of bronchogenic carcinoma until proven otherwise. Biopsy via bronchoscopy should be attempted initially as this appears to be easily accessible from the right upper lobe bronchus. 2. Scattered much smaller noncalcified nodules within the right upper lobe suggesting metastatic disease. 3. Right hilar lymphadenopathy measuring 1.7 x 1.4 cm. 4. Partially-calcified, somewhat-spiculated right upper lobe nodule measuring 13 x 11 mm which is indeterminate. 5. 10 mm calcified granuloma within the left upper lobe. 6. Minimal posterior atelectatic changes and pleural thickening bilaterally. 7. Coronary artery calcifications. 8. Moderate compression deformity involving T12 which is likely chronic. Nader Mata MD Abdomen/Pelvis CT 07/01/17 0000 Signed Impressions: Service Date/Time: Saturday, July 01, 2017 12:35 - CONCLUSION: 1. Distended stomach and jejunum with transition point in the left lower quadrant. Findings are consistent with at least a partial small bowel obstruction. No evidence for perforation or bowel infarction at this time. 2. Slight prominence of the common bile duct and central intrahepatic ducts with mild gallbladder distention. This may be due to the small bowel dilatation but distal CBD obstruction cannot be entirely excluded. This can be further evaluated with HIDA scan as clinically warranted. 3. 1.4 x 1.9 cm left adrenal mass. This can be further evaluated with PET scan if patient is confirmed to have a lung mass. 4. Ancillary findings, as above. Jaylen Sheldon MD Objective Remarks GENERAL: Middle-aged female who appears older than stated age, lying in bed, intubated, sedated, critically ill HEENT: Normocephalic. Atraumatic. Pupils equal, round, reactive, conjugate. Mucous membranes are moist NECK: Trachea is midline. There is no JVD. CHEST:. Equal Chest rise. PRVC, 40% FiO2, PEEP 5. CARDIOVASCULAR: Tachycardic rate, regular rhythm. Sinus by telemetry ABDOMEN: Soft, nontender, nondistended. No guarding. MUSCULOSKELETAL: Pulses 2+. No peripheral edema. NEUROLOGICAL: RASS +1/+2. Intermittently severely agitated. Moves all extremities spontaneously, intermittently following commands. A/P Assessment and Plan Assessment: 57-year-old female with an unknown past medical history presents with the complaint EMS of GI bleeding, however in our emergency department presents with acute encephalopathy, fever, leukocytosis, seizures. MRI with possible evidence of cerebritis vs. encephalitis. continue frequent neuro checks. agitated delirium is worsening. will add more anti-delirium agents. remains critically ill with worsening life-threatening agitated delirium. Plan by systems: Neurologic: Acute encephalopathy Possible alcohol withdrawal Seizures Possible cerebritis/encephalitis Agitated Delirium- worsening. Fosphenytoin EEG 07/01: possible ictal spikes Neurology consult: Dr. Evans Propofol, fentanyl for goal RASS -2 Valium 10 mg by mouth every 8 hours scheduled IV thiamine, multivitamin Frequent neuro checks add seroquel 100mg po q8h add oxycodone 10mg po q4h add precedex infusion to help control agitation. f/u CSF VDRL, VZV, encephalitis panel, crypto Ag f/u HIV Respiratory: Acute hypoxic and hypercarbic respiratory failure Lung masses Vent bundle Head of bed at 30 Nebs Wean FiO2 for goal SPO2 greater than 90% daily SBTs Will need further outpatient workup for her lung masses, however unlikely to be related to her acute encephalopathy Cardiovascular: Sinus tachycardia Hypertension Hemodynamic symptoms point towards alcohol withdrawal syndrome and much less towards sepsis Hydralazine, labetalol when necessary for goal SBP less than 160 clonidine 0.3mg po q8h Renal: d/c bryant -- Strict I/Os FEN/GI: Acute protein calorie malnutrition- moderate Questionable partial small bowel obstruction on CT- resolved. Possible GI bleeding patient having regular bowel movements, soft abdomen. no signs of GI bleeding or obstruction. continue TF jevity 1.5 goal rate 60, nutrition consult for goal recs. decrease mivf to 50cc/hr. ICU electrolyte protocol IV twice a day PPI Heme/ID: Possible GI bleeding- unlikely given clinical course inpatient Leukocytosis - improving. Fever Possible meningitis/encephalitis/cerebritis Vancomycin with pharmacy dosing Rocephin 2 g IV every 12 hours Azithromycin 500 mg IV every 24 hours Acyclovir 10mg/kg iv q8h ampicillin 2gm iv q4h. Follow-up sputum, blood, urine, CSF cultures: sputum culture 07/01: GNRs CSF counts not consistent with bacterial meningitis Trend daily BMP HIV pending CSF crypto CSF VDRL CSF encephalitis panel CSF VZV CSF HSV Endocrine: Hyperglycemia of critical illness -- SSI Prophylaxis: GI Prophylaxis IV twice a day PPI DVT Prophylaxis -- SCDs start SQH Lines: Peripheral IVs 07/03 CVL: placed for secure iv access since patient removed all own iv's. keep today until delirium improves. d/c bryant Dispo: remain in ICU. Remains critically ill This patient remains critically ill with one or more organ systems which are or may become a threat to life. I have spent in excess of 31 minutes discontinuously in the care and management of this patient. This time is exclusive of procedures, and includes, but is not limited to, evaluation of the patient, review of the medical record, discussions with family, consultants, nursing staff, or respiratory therapy, and documentation in the medical record. Daniel Chandra MD Jul 03, 2017 08:38
[2017-07-03] MEDS: fentaNYL DRIP 250 ML IV PRN (08:42)
[2017-07-03] MEDS: DOCUSATE SODIUM 50 MG/SENNA 8.6 MG TAB PO SCH ×2 (09:00→21:00)
[2017-07-03] MEDS: QUEtiapine FUMARATE 100 MG TAB PO SCH ×2 (09:00→18:19)
[2017-07-03] MEDS: oxyCODONE HCL ORAL CONC 5 MG/0.25 ML SYRINGE PO SCH ×2 (09:00→13:10)
[2017-07-03] MEDS: MULTIVITAMIN TAB PO SCH (09:00)
[2017-07-03] MEDS: DEXMEDETOMIDINE INJ 200 MCG in SODIUM CHLORIDE 0.9% INJ 50 ML IV PRN ×2 (10:00→15:31)
[2017-07-03 11:41] LABS: BLOOD GAS BASE EXCESS -1.9 mmol/L (-2-2); BLOOD GAS HCO3 21 mmol/L (22-26); BLOOD GAS METHEMOGLOBIN 1.1 % (0-2); BLOOD GAS O2 HGB SATURATION 97 % (90-100); BLOOD GAS OXYGEN CONTENT 13.7 Vol % (12.0-20.0); BLOOD GAS PCO2 25 mmHg (38-42); BLOOD GAS PO2 109 mmHg (61-120); TEMP CORR TO 98.6
[2017-07-03 11:42] LABS: CRITICAL VALUE YES; DRAW SITE RT RADIAL; FIO2 40 %; NUMBER OF ARTERIAL PUNCTURES 1; OXYGEN DEVICE VENTILATOR; STAT NO; ULNAR PULSE PRESENT; VENT SETTINGS CPAP 5/8PS
[2017-07-03] MEDS: AZITHROMYCIN INJ 500 MG in SODIUM CHLOR 0.9% 250 ML INJ 250 ML IV SCH (14:59)
[2017-07-03] MEDS: VANCOMYCIN INJ 1,250 MG in SODIUM CHLOR 0.9% 250 ML INJ 250 ML IV SCH (15:01)
[2017-07-03] MEDS: HEPARIN SODIUM - SQ 10,000 UNITS/ML VIAL SQ SCH ×2 (15:06→21:01)
--- NOTE | 2017-07-03 15:16 | HHI.PR ---
Review/Management Daily Summary 07/02 no seizures mri brain seen csf seen mri findings puzzle looks better, sedated but follows commands and moves 4 limbs, on vent will add mra head and MR Venous head add csf cytology 07/03 doing better verbalizing, calm, cooperative dx uncertain will repeat mri brain tomorrow Subjective Subjective Comments seen this pm shortly after extubation no cx Active Medications Current Medications Medications (Trade) Dose Ordered Sig/Kelsie Route Start Time Stop Time Status Last Admin (NS Flush) 2 ml UNSCH PRN IVF 07/01/17 09:45 07/01/17 10:37 (NS Flush) 2 ml UNSCH PRN IV FLUSH 07/01/17 09:45 (NS Flush) 2 ml UNSCH PRN IVF 07/01/17 10:15 Propofol 100 ml @ 1.905 mls/ hr TITRATE PRN IV 07/01/17 10:15 07/03/17 03:46 (Peridex 0.12% Liq) 15 ml BID@08,20 MT 07/01/17 20:00 07/03/17 08:00 (Mag-Ox) 800 mg UNSCH PRN PO 07/01/17 10:45 Magnesium Sulfate 4 gm/Sodium Chloride 100 ml @ 50 mls/hr UNSCH PRN IV 07/01/17 10:45 Magnesium Sulfate 2 gm/Sodium Chloride 100 ml @ 50 mls/hr UNSCH PRN IV 07/01/17 10:45 Potassium Chloride 100 ml @ 50 mls/hr Q2H PRN IV 07/01/17 10:45 Potassium Chloride 100 ml @ 50 mls/hr Q2H PRN IV 07/01/17 10:45 07/02/17 05:39 Potassium Chloride 100 ml @ 50 mls/hr Q2H PRN IV 07/01/17 10:45 Potassium Chloride 100 ml @ 25 mls/hr UNSCH PRN IV 07/01/17 10:45 (K-Phos) 2,000 mg Q4H PRN PO 07/01/17 10:45 (K-Phos) 2,000 mg UNSCH PRN PO/TUBE 07/01/17 10:45 Potassium Phosphate 30 mmol/ Sodium Chloride 260 ml @ 42 mls/hr UNSCH PRN IV 07/01/17 10:45 Sodium Phosphate 30 mmol/Sodium Chloride 250 ml @ 42 mls/hr UNSCH PRN IV 07/01/17 10:45 (Trandate Inj) 20 mg Q15M PRN IV PUSH 07/01/17 10:45 (Apresoline Inj) 10 mg Q30M PRN IV PUSH 07/01/17 10:45 (D50w (Vial) Inj) 25 ml UNSCH PRN IV PUSH 07/01/17 10:45 07/03/17 06:01 (NovoLIN R SUPPLEMENTAL SCALE) 1 Q6HR SQ 07/01/17 12:00 (Duoneb Neb) 1 ampule Q6HR NEB INH 07/01/17 16:00 07/03/17 08:26 (Duoneb Neb) 1 ampule Q2HR NEB PRN INH 07/01/17 10:45 Sodium Chloride 1,000 ml @ 50 mls/hr Q20H IV 07/01/17 10:34 07/03/17 05:42 (Protonix Inj) 40 mg Q12H IV PUSH 07/01/17 14:00 07/03/17 15:02 (Zofran Inj) 4 mg Q6H PRN IV PUSH 07/01/17 10:45 Miscellaneous Information 1 Q361D XX 07/01/17 10:45 (Chlorhexidine 2% Cloth) 3 pack Taper DAILY@04 TOP 07/02/17 04:00 06/28/18 03:59 07/03/17 03:49 (Chlorhexidine 2% Cloth) 3 pack UNSCH PRN TOP 07/01/17 10:45 (Sarah-Colace) 1 tab BID PO 07/01/17 21:00 07/03/17 09:00 Pharmacy Profile Note 0 ml @ 0 mls/hr UNSCH PRN OTHER 07/01/17 10:45 Ceftriaxone Sodium 2000 mg/ Sodium Chloride 100 ml @ 200 mls/hr Q12H IV 07/01/17 14:00 07/03/17 14:00 Azithromycin 500 mg/Sodium Chloride 250 ml @ 250 mls/hr Q24H IV 07/01/17 15:00 07/03/17 14:59 Fentanyl Citrate 250 ml @ 5 mls/hr TITRATE PRN IV 07/01/17 12:30 07/03/17 08:42 Vancomycin HCl 1250 mg/Sodium Chloride 262.5 ml @ 250 mls/hr Q24H IV 07/01/17 15:00 12/18/17 15:01 Miscellaneous Information SPECIFIC LAB TO BE ... ONCE ONCE .XX 07/04/17 14:45 07/04/17 14:46 (Valium) 10 mg Q8H PO 07/01/17 17:00 07/03/17 09:00 (Catapres) 0.3 mg Q8HR PO 07/01/17 17:00 07/03/17 14:00 (Vitamin B1) 100 mg DAILY PO 07/05/17 09:00 (Theragran) 1 tab DAILY PO 07/02/17 09:00 07/03/17 09:00 (Dilantin Inj) 100 mg Q8HR IV PUSH 07/01/17 22:00 07/03/17 14:55 Ampicillin Sodium 2000 mg/Sodium Chloride 100 ml @ 400 mls/hr Q4H IV 07/02/17 09:00 07/03/17 13:11 Acyclovir Sodium 575 mg/Sodium Chloride 100 ml @ 100 mls/hr Q8H IV 07/02/17 10:00 07/03/17 10:00 (Haldol Inj) 5 mg Q4H PRN IV PUSH 07/03/17 08:30 (SEROquel) 100 mg Q8H PO 07/03/17 09:00 07/03/17 09:00 (Roxicodone Intensol Liq) 10 mg Q4H PO 07/03/17 09:00 07/03/17 13:10 Dexmedetomidine HCl 200 mcg/ Sodium Chloride 52 ml @ 7.99 mls/hr TITRATE PRN IV 07/03/17 08:45 07/03/17 10:00 (Heparin Inj) 5,000 units Q8HR SQ 07/03/17 14:00 07/03/17 15:06 Allergies Allergies Coded Allergies Unable to Assess (Verified Allergy, Unknown, 07/01/17) Exam I&O / VS Vital Signs Date Time Temp Pulse Resp B/P (MAP) Pulse Ox O2 Delivery O2 Flow Rate FiO2 07/03/17 14:00 108 07/03/17 13:00 109 07/03/17 12:00 113 07/03/17 12:00 98.5 113 12 105/56 (72) 98 07/03/17 11:49 98 Nasal Cannula 3.00 07/03/17 11:49 98 Nasal Cannula 3 07/03/17 11:00 119 07/03/17 10:09 40 07/03/17 10:00 123 07/03/17 09:00 90 07/03/17 08:30 100 40 07/03/17 08:00 99.0 70 13 87/54 (65) 100 07/03/17 08:00 40 07/03/17 08:00 70 07/03/17 07:00 73 07/03/17 06:00 73 07/03/17 05:10 100 40 07/03/17 04:00 97.9 219 24 134/82 (99) 99 07/03/17 04:00 94 07/03/17 04:00 40 07/03/17 02:00 69 07/03/17 01:10 100 40 07/03/17 00:00 72 07/03/17 00:00 40 07/03/17 00:00 98.3 72 15 87/54 (65) 100 07/02/17 23:04 100 40 07/02/17 22:00 105 07/02/17 20:00 98.1 68 15 90/61 (71) 100 07/02/17 20:00 68 07/02/17 20:00 40 07/02/17 18:00 63 07/02/17 17:00 100 50 07/02/17 17:00 68 07/02/17 16:00 68 07/02/17 16:00 98.3 68 15 93/55 (68) 100 07/02/17 16:00 40 Objective Radiology Results Last 48 hours Impressions Head/Brain Mag Res Venography 07/02/17 0000 Signed Impressions: Service Date/Time: Sunday, July 02, 2017 17:21 - CONCLUSION: Negative MRV. Gerry Briscoe MD Head Magnetic Resonance Angiography 07/02/17 0000 Signed Impressions: Service Date/Time: Sunday, July 02, 2017 17:21 - CONCLUSION: Negative MRA of the intracranial circulation. Gerry Briscoe MD Chest X-Ray 07/02/17 0000 Signed Impressions: Service Date/Time: Sunday, July 02, 2017 22:47 - CONCLUSION: 1. Tubes and lines in good position. No pneumothorax is seen. 2. Right lung masses. Gerry Briscoe MD Micro and Labs Laboratory Tests Test 07/03/17 01:23 07/03/17 04:08 07/03/17 11:35 Hemoglobin 9.7 10.7 Hematocrit 27.7 31.3 White Blood Count 10.8 Red Blood Count 3.39 Mean Corpuscular Volume 92.3 Mean Corpuscular Hemoglobin 31.7 Mean Corpuscular Hemoglobin Concent 34.3 Red Cell Distribution Width 15.4 Platelet Count 289 Mean Platelet Volume 6.8 Blood Urea Nitrogen 9 Creatinine 0.69 Random Glucose 84 Calcium Level 7.5 Sodium Level 141 Potassium Level 3.4 Chloride Level 109 Carbon Dioxide Level 23.8 Anion Gap 8 Estimat Glomerular Filtration Rate 87 HIV (1&2) Antibody NEGATIVE Blood Gas Puncture Site RT RADIAL Blood Gas Patient Temperature 98.6 Blood Gas HCO3 21 Blood Gas Base Excess -1.9 Blood Gas Oxygen Saturation 97 Arterial Blood pH 7.53 Arterial Blood Partial Pressure CO2 25 Arterial Blood Partial Pressure O2 109 Arterial Blood Oxygen Content 13.7 Arterial Blood Carboxyhemoglobin 1.0 Arterial Blood Methemoglobin 1.1 Blood Gas Hemoglobin 10.0 Oxygen Delivery Device VENTILATOR Blood Gas Ventilator Setting CPAP 5/8PS Blood Gas Inspired Oxygen 40 Date/Time Source Procedure Growth Status 07/01/17 09:50 Blood Peripheral Aerobic Blood Culture - Preliminary NO GROWTH IN 2 DAYS Resulted 07/01/17 09:50 Blood Peripheral Anaerobic Blood Culture - Preliminary NO GROWTH IN 2 DAYS Resulted 07/01/17 11:05 Cerebral Spinal Fluid Lumbar Puncture Gram Stain - Final Resulted 07/01/17 11:05 Cerebral Spinal Fluid Lumbar Puncture CSF Culture - Preliminary NO GROWTH IN 48 HOURS. Resulted 07/01/17 11:15 Sputum Endotracheal Gram Stain - Final Complete 07/01/17 11:15 Sputum Culture - Final Escherichia Coli Complete 07/01/17 10:50 Urine Clean Catch Urine Culture - Final NO GROWTH IN 48 HOURS. Complete Tani Evans MD Jul 03, 2017 15:16
[2017-07-03] MEDS: FAMOTIDINE 20 MG TAB PO SCH (21:00)
[2017-07-04] VITALS (21 sets, daily range): BP systolic 86–187; BP diastolic 50–112; PULSE 80–113; RESP 9–44; TEMP 97.7–98.8; O2SAT 94–100
[2017-07-04] MEDS: QUEtiapine FUMARATE 100 MG TAB PO SCH ×2 (01:30→07:45)
[2017-07-04] MEDS: DIAZEPAM 10 MG TAB PO SCH ×2 (01:30→07:45)
[2017-07-04] MEDS: AMPICILLIN INJ 2,000 MG in SODIUM CHLORIDE 0.9% INJ 100 ML IV SCH ×3 (01:32→07:45)
[2017-07-04] MEDS: ACYCLOVIR IV SCH ×2 (02:07→09:18)
[2017-07-04] MEDS: SODIUM CHLORIDE 0.9% IV SCH ×2 (02:07→09:18)
[2017-07-04] MEDS: cefTRIAXone INJ 2,000 MG in SODIUM CHLORIDE 0.9% INJ 100 ML IV SCH (02:08)
[2017-07-04] MEDS: RESP: ALBUTEROL 2.5 MG/IPRATROPIUM 0.5 MG NEB (SCH) INH ×4 (04:00→21:13)
[2017-07-04] MEDS: CHLORHEXIDINE GLUCONATE 2 % 1 PACK (2 CLOTHS) TOP SCH (04:00)
[2017-07-04] MEDS: INSULIN NovoLIN REGULAR SUPPLEMENTAL SCALE SQ SCH ×3 (06:00→11:25)
[2017-07-04] MEDS: HEPARIN SODIUM - SQ 10,000 UNITS/ML VIAL SQ SCH ×3 (06:06→21:26)
[2017-07-04] MEDS: PHENYTOIN INJ 100 MG/2 ML VIAL IV PUSH SCH ×3 (06:06→21:26)
[2017-07-04] MEDS: cloNIDine HCL 0.3 MG TAB PO SCH ×3 (06:06→21:26)
[2017-07-04] MEDS: CHLORHEXIDINE 0.12% (ORAL KIT) 15 ML CUP MT SCH ×2 (07:26→20:00)
[2017-07-04] MEDS: MULTIVITAMIN TAB PO SCH (07:45)
[2017-07-04] MEDS: DOCUSATE SODIUM 50 MG/SENNA 8.6 MG TAB PO SCH ×2 (07:45→21:00)
[2017-07-04] MEDS: FAMOTIDINE 20 MG TAB PO SCH ×2 (07:45→21:27)
[2017-07-04 09:56] LABS: HSV 1,PCR Negative (Negative)
[2017-07-04 11:39] LABS: BICARBONATE 22.7 MEQ/L (21.0-32.0)
[2017-07-04] MEDS ORDERED: GADODIAMIDE PF 287 MG/ML 5 ML VIAL (for RAD MRI) IVCONTRAST ONE (11:42)
[2017-07-04 11:47] LABS: POTASSIUM 2.7 MEQ/L (3.5-5.1)
--- NOTE | 2017-07-04 11:59 | RADRPT ---
EXAM DATE/TIME: 07/04/2017 11:24 [facility] COMPARISON: MRI BRAIN W & W/O CONTRAST, July 01, 2017, 20:10. INDICATIONS : Seizures. Lung mass. CONTRAST: 11 cc Omniscan (gadodiamide) IV MEDICAL HISTORY : Hypertension. Chronic obstructive pulmonary disease. Seizures. SURGICAL HISTORY : orthopedic. ENCOUNTER: Initial ACUITY: 2 day PAIN SCORE: 3/10 LOCATION: head TECHNIQUE: Multiplanar, multisequence MRI of the brain was performed both prior to and following the administrat ion of paramagnetic contrast. FINDINGS: CEREBRUM: There has been marked improvement without any significant flair abnormalities that were noted on the . The ventricles are normal for age. No evidence of midline shift, mass lesion, hemorrhage or acute infarction. No extraaxial fluid collections are seen. The pituitary gland and suprasellar cis tern are normal in configuration. WHITE MATTER: Numerous small abnormal areas of signal in the periventricular white matter likely related to ischemi c demyelinization. No evidence of acute stroke. POSTERIOR FOSSA: The cerebellum and brainstem are intact. The 4th ventricle is midline. The cerebellopontine angle is unremarkable. The cerebellar tonsils are normal in position. DIFFUSION IMAGING: No focal areas of restricted diffusion are seen. No evidence of acute infarction. EXTRACRANIAL: The visualized portions of the orbits and paranasal sinuses are unremarkable. POST-CONTRAST: No abnormal areas of parenchymal or dural enhancement. No evidence of blood-brain barrier breakdown. CONCLUSION: Definite improvement in the appearance of the brain since the . The gyriform areas of increased s ignal on the flair images are less prominent today particularly the left frontal area than they were on the . There is a small area remaining in the occipital lobe which is unchanged to slightly imp roved. I don't see any evidence of an acute stroke. No acute mass or mass effect. Ta Cordero MD on July 04, 2017 at 11:54 Board Certified Radiologist. This report was verified electronically.
[2017-07-04] MEDS ORDERED: DIAZEPAM 5 MG TAB PO PRN (12:15)
[2017-07-04] MEDS ORDERED: POTASSIUM CHLORIDE 25 MEQ EFFERVESCENT TAB PO ONE (12:30)
[2017-07-04] MEDS ORDERED: PILL SPLITTER OTHER PRN (13:00)
[2017-07-04] MEDS: DIAZEPAM 5 MG TAB PO SCH ×2 (13:22→21:27)
[2017-07-04] MEDS: HYDROmorphone HCL PF 4 MG/ML VIAL IV PUSH PRN (13:44)
[2017-07-04] MEDS ORDERED: DIAZEPAM 5 MG TAB PO SCH (14:00)
[2017-07-04 14:23] LABS: HEMATOCRIT 31.1 % (35.0-46.0); MEAN CELL VOLUME 91.9 FL (80.0-100.0); MEAN CORPUSCULAR HEMOGLOBIN 30.8 PG (27.0-34.0); MEAN CORPUSCULAR HGB CONC 33.6 % (32.0-36.0); PLATELET COUNT 262 TH/MM3 (150-450); RED BLOOD COUNT 3.38 MIL/MM3 (4.00-5.30); RED CELL DISTRIBUTION WIDTH 15.2 % (11.6-17.2); REVIEW FLAG FINAL; WHITE BLOOD COUNT 8.4 TH/MM3 (4.0-11.0)
[2017-07-04] MEDS ORDERED: PHARMACY ORDERED LAB ONE (14:45)
--- NOTE | 2017-07-04 15:03 | HHI.CCPN ---
Subjective Remarks/Hospital Course Hospital Course: This is a 57-year-old female with an unknown past medical history who presented by EMS with the complaint of vomiting blood times a few days per report. Unfortunately, when she was evaluated by the ER physician, she was obtunded with a gaze deviation and hypoxic on room air. She was emergently intubated. During stat head CT, she had a witnessed generalized tonic-clonic seizure. She was given fosphenytoin. Neurology was consulted for possible stroke alert, but given questionable GI bleed and witnessed seizure, TPA was not administered. In the emergency department, however she was febrile to 100.6F, tachycardic, hypertensive. LP was performed in the emergency department which showed normal glucose, normal protein, with clear CSF. OG tube was placed without coffee grounds emesis or significant output. I personally instilled 300mL free water into the OG tube and hooked it up to LIWS and did not get any coffee grounds or bright red bloody output, only clear liquid output from her OG tube. Screening chest x-ray post intubation demonstrated right hilar mass. Follow-up CT chest abdomen and pelvis with IV contrast demonstrated multiple lung lesions concerning for a static lung cancer. CT abdomen and pelvis demonstrated possible small bowel obstruction with significant stool burden in the sigmoid and rectum. Lactate is normal. She does have leukocytosis to 20,000. No additional information is available from the patient. ROS is unobtainable Subjective: 07/02: MRI last night with concern for possible cerebritis vs. encephalitis. EEG with ? seizure spikes. neuro following. patient follows commands this morning x 4. given concern for encephalitis, ampicillin and acyclovir were added this morning. cultures NGTD. wbc downtrending. 07/03: agitated delirium worsened overnight despite fentanyl, versed, and propofol infusions. pulled out all iv's. central line placed overnight. sputum culture growing GNRs, otherwise cultures NGTD. MRA/MRV negative. still off pathway. 07/04: extubated yesterday. doing well. tolerating diet. sputum growing e.coli. repeat MRI with improved evidence of cortical enhancement. Objective Vital Signs Date Time Temp Pulse Resp B/P (MAP) Pulse Ox O2 Delivery O2 Flow Rate FiO2 07/04/17 14:00 101 07/04/17 12:00 98.8 180/112 (134) 07/04/17 11:00 24 96 07/03/17 21:10 Nasal Cannula 2.00 07/03/17 10:09 40 Intake and Output 07/04/17 07/04/17 07/05/17 08:00 16:00 00:00 Intake Total 2100 ml 200 ml Output Total 400 ml Balance 1700 ml 200 ml Result Diagram: 07/04/17 1409 07/04/17 0940 Imaging Last Impressions Head CT 07/01/17 0937 Signed Impressions: Service Date/Time: Saturday, July 01, 2017 09:49 - CONCLUSION: No acute intracranial abnormality. Nader Mata MD Chest X-Ray 07/01/17 0937 Signed Impressions: Service Date/Time: Saturday, July 01, 2017 10:36 - CONCLUSION: 1. 2.5 cm right perihilar mass. CT of the chest with contrast would be helpful for further evaluation of this suspicious lesion. 2. Endotracheal tube in good position 3 cm above the chidi. Nader Mata MD Chest CT 07/01/17 0000 Signed Impressions: Service Date/Time: Saturday, July 01, 2017 12:35 - CONCLUSION: 1. Centrally-located perihilar right upper lobe mass measuring 2.8 x 2.5 cm which is suggestive of bronchogenic carcinoma until proven otherwise. Biopsy via bronchoscopy should be attempted initially as this appears to be easily accessible from the right upper lobe bronchus. 2. Scattered much smaller noncalcified nodules within the right upper lobe suggesting metastatic disease. 3. Right hilar lymphadenopathy measuring 1.7 x 1.4 cm. 4. Partially-calcified, somewhat-spiculated right upper lobe nodule measuring 13 x 11 mm which is indeterminate. 5. 10 mm calcified granuloma within the left upper lobe. 6. Minimal posterior atelectatic changes and pleural thickening bilaterally. 7. Coronary artery calcifications. 8. Moderate compression deformity involving T12 which is likely chronic. Nader Mata MD Abdomen/Pelvis CT 07/01/17 0000 Signed Impressions: Service Date/Time: Saturday, July 01, 2017 12:35 - CONCLUSION: 1. Distended stomach and jejunum with transition point in the left lower quadrant. Findings are consistent with at least a partial small bowel obstruction. No evidence for perforation or bowel infarction at this time. 2. Slight prominence of the common bile duct and central intrahepatic ducts with mild gallbladder distention. This may be due to the small bowel dilatation but distal CBD obstruction cannot be entirely excluded. This can be further evaluated with HIDA scan as clinically warranted. 3. 1.4 x 1.9 cm left adrenal mass. This can be further evaluated with PET scan if patient is confirmed to have a lung mass. 4. Ancillary findings, as above. Jaylen Sheldon MD Objective Remarks GENERAL: Middle-aged female who appears older than stated age, lying in bed, no acute distress. HEENT: Normocephalic. Atraumatic. Pupils equal, round, reactive, conjugate. Mucous membranes are moist NECK: Trachea is midline. There is no JVD. CHEST:. Equal Chest rise. nc o2. unlabored. CARDIOVASCULAR: normal rate, regular rhythm. Sinus by telemetry ABDOMEN: Soft, nontender, nondistended. No guarding. MUSCULOSKELETAL: Pulses 2+. No peripheral edema. NEUROLOGICAL: RASS 0. follows commands. A/P Assessment and Plan Assessment: 57-year-old female with an unknown past medical history presents with the complaint EMS of GI bleeding, however in our emergency department presents with acute encephalopathy, fever, leukocytosis, seizures. MRI with improving evidence of cerebritis vs. encephalitis. clinically improving. stable for transfer to floor. de-escalate antibiotics to monotherapy with Rocephin for community-acquired aspiration pneumonia present on admission. Plan by systems: Neurologic: Acute encephalopathy - improving. Possible alcohol withdrawal Seizures Possible cerebritis/encephalitis Agitated Delirium- improved. Fosphenytoin EEG 07/01: possible ictal spikes Neurology consult: Dr. Evans Valium 10 mg by mouth every 8 hours scheduled: start taper. valium 5mg po q8h prn for breakthrough agitation. IV thiamine, multivitamin d/c seroquel d/c oxycodone HIV negative f/u CSF VDRL, VZV, encephalitis panel, crypto Ag f/u HIV Respiratory: Acute hypoxic and hypercarbic respiratory failure- resolved. Lung masses Wean FiO2 for goal SPO2 greater than 90% Will need further outpatient workup for her lung masses, however unlikely to be related to her acute encephalopathy. can follow up with outpatient pulmonology. OOB PT consult Cardiovascular: Sinus tachycardia- resolving. Hypertension Hemodynamic symptoms point towards alcohol withdrawal syndrome and much less towards sepsis Hydralazine, labetalol when necessary for goal SBP less than 160 clonidine 0.3mg po q8h Renal: -- Strict I/Os FEN/GI: Acute protein calorie malnutrition- moderate Questionable partial small bowel obstruction on CT- resolved. Possible GI bleeding- resolved. Hypokalemia patient having regular bowel movements, soft abdomen. no signs of GI bleeding or obstruction. continue diet as tolerated. ICU electrolyte protocol Heme/ID: Possible GI bleeding- unlikely given clinical course inpatient Leukocytosis - improving. Fever- resolved. Possible meningitis/encephalitis/cerebritis - improving. de-escalate abx therapy to Rocephin 1gm iv q24h for a total 7 day course of abx (4 more days remaining) sputum culture 07/01: e. coli. CSF counts not consistent with bacterial meningitis Trend daily BMP HIV negative CSF crypto: pending. CSF VDRL: pending CSF encephalitis panel: pending. CSF VZV: pending CSF HSV: negative. Endocrine: Hyperglycemia of critical illness -- SSI Prophylaxis: DVT Prophylaxis -- SCDs SQH Lines: Peripheral IVs 07/03 CVL: placed for secure iv access since patient removed all own iv's. d/c. Dispo: transfer to floor. consult hospitalist group. Daniel Chandra MD Jul 04, 2017 15:03
[2017-07-04] MEDS: POTASSIUM CHLOR 20 MEQ PREMIX 100 ML IV PRN ×2 (16:54→21:28)
--- NOTE | 2017-07-04 17:16 | HHI.PR ---
Review/Management Daily Summary 07/02 no seizures mri brain seen csf seen mri findings puzzle looks better, sedated but follows commands and moves 4 limbs, on vent will add mra head and MR Venous head add csf cytology 07/03 doing better verbalizing, calm, cooperative dx uncertain will repeat mri brain tomorrow 07/04 much improved mri fings, i reviewed mri clinically much better as well follows commands and reasonably oriented asks appropriate questions continue present care, check dph level oob ambulate Subjective Subjective Comments No acute neuro events reported No headache Active Medications Current Medications Medications (Trade) Dose Ordered Sig/Kelsie Route Start Time Stop Time Status Last Admin (NS Flush) 2 ml UNSCH PRN IVF 07/01/17 09:45 07/01/17 10:37 (NS Flush) 2 ml UNSCH PRN IV FLUSH 07/01/17 09:45 (NS Flush) 2 ml UNSCH PRN IVF 07/01/17 10:15 (Peridex 0.12% Liq) 15 ml BID@08,20 MT 07/01/17 20:00 07/03/17 08:00 (Mag-Ox) 800 mg UNSCH PRN PO 07/01/17 10:45 Magnesium Sulfate 4 gm/Sodium Chloride 100 ml @ 50 mls/hr UNSCH PRN IV 07/01/17 10:45 Magnesium Sulfate 2 gm/Sodium Chloride 100 ml @ 50 mls/hr UNSCH PRN IV 07/01/17 10:45 Potassium Chloride 100 ml @ 50 mls/hr Q2H PRN IV 07/01/17 10:45 07/04/17 16:54 Potassium Chloride 100 ml @ 50 mls/hr Q2H PRN IV 07/01/17 10:45 07/02/17 05:39 Potassium Chloride 100 ml @ 50 mls/hr Q2H PRN IV 07/01/17 10:45 07/04/17 12:22 Potassium Chloride 100 ml @ 25 mls/hr UNSCH PRN IV 07/01/17 10:45 (K-Phos) 2,000 mg Q4H PRN PO 07/01/17 10:45 (K-Phos) 2,000 mg UNSCH PRN PO/TUBE 07/01/17 10:45 Potassium Phosphate 30 mmol/ Sodium Chloride 260 ml @ 42 mls/hr UNSCH PRN IV 07/01/17 10:45 Sodium Phosphate 30 mmol/Sodium Chloride 250 ml @ 42 mls/hr UNSCH PRN IV 07/01/17 10:45 (Trandate Inj) 20 mg Q15M PRN IV PUSH 07/01/17 10:45 07/04/17 13:42 (Apresoline Inj) 10 mg Q30M PRN IV PUSH 07/01/17 10:45 (D50w (Vial) Inj) 25 ml UNSCH PRN IV PUSH 07/01/17 10:45 07/03/17 06:01 (Duoneb Neb) 1 ampule Q6HR NEB INH 07/01/17 16:00 07/04/17 16:55 (Duoneb Neb) 1 ampule Q2HR NEB PRN INH 07/01/17 10:45 (Zofran Inj) 4 mg Q6H PRN IV PUSH 07/01/17 10:45 Miscellaneous Information 1 Q361D XX 07/01/17 10:45 (Chlorhexidine 2% Cloth) 3 pack Taper DAILY@04 TOP 07/02/17 04:00 06/28/18 03:59 07/03/17 03:49 (Chlorhexidine 2% Cloth) 3 pack UNSCH PRN TOP 07/01/17 10:45 (Sarah-Colace) 1 tab BID PO 07/01/17 21:00 07/04/17 07:45 (Catapres) 0.3 mg Q8HR PO 07/01/17 17:00 07/04/17 13:21 (Vitamin B1) 100 mg DAILY PO 07/05/17 09:00 (Theragran) 1 tab DAILY PO 07/02/17 09:00 07/04/17 07:45 (Dilantin Inj) 100 mg Q8HR IV PUSH 07/01/17 22:00 07/04/17 13:21 (Haldol Inj) 5 mg Q4H PRN IV PUSH 07/03/17 08:30 07/04/17 12:30 (Heparin Inj) 5,000 units Q8HR SQ 07/03/17 14:00 07/04/17 13:26 (Pepcid) 20 mg BID PO 07/03/17 21:00 07/04/17 07:45 (Roxicodone) 5 mg Q4H PRN PO 07/03/17 17:45 (Dilaudid Pf Inj) 0.5 mg Q4H PRN IV PUSH 07/03/17 17:45 07/04/17 13:44 Ceftriaxone Sodium 1000 mg/ Sodium Chloride 100 ml @ 200 mls/hr Q24H IV 07/05/17 02:00 07/08/17 12:14 (Valium) 7.5 mg Taper Q8HR PO 07/04/17 14:00 07/08/17 13:59 07/04/17 13:22 (Pill Splitter) 1 ea UNSCH PRN OTHER 07/04/17 13:00 Allergies Allergies Coded Allergies Unable to Assess (Verified Allergy, Unknown, 07/01/17) Exam I&O / VS 07/04/17 07/04/17 07/05/17 15:00 23:00 07:00 Intake Total 200 ml 100 ml Balance 200 ml 100 ml IV Total 200 ml 100 ml Vital Signs Date Time Temp Pulse Resp B/P (MAP) Pulse Ox O2 Delivery O2 Flow Rate FiO2 07/04/17 16:00 97 07/04/17 16:00 98.4 97 9 187/84 (118) 100 07/04/17 15:00 94 23 142/80 (100) 97 07/04/17 14:00 101 25 165/79 (107) 98 07/04/17 14:00 101 07/04/17 13:00 100 27 174/89 (117) 94 07/04/17 12:00 103 07/04/17 12:00 98.8 103 180/112 (134) 07/04/17 11:00 105 24 158/81 (106) 96 07/04/17 10:00 113 44 98 07/04/17 10:00 113 07/04/17 09:56 99 07/04/17 09:00 106 99 07/04/17 08:00 97.7 92 19 158/74 (102) 100 07/04/17 08:00 92 07/04/17 06:00 95 07/04/17 04:00 86 07/04/17 04:00 98.0 86 18 111/61 (78) 100 07/04/17 02:00 80 07/04/17 00:00 97.8 85 13 86/50 (62) 100 07/04/17 00:00 85 07/03/17 22:00 98 07/03/17 21:10 100 Nasal Cannula 2.00 07/03/17 20:00 97.7 101 20 125/69 (87) 100 07/03/17 20:00 101 07/03/17 18:00 88 Objective Radiology Results Last 48 hours Impressions Brain MRI 07/04/17 0000 Signed Impressions: Service Date/Time: Tuesday, July 04, 2017 11:24 - CONCLUSION: Definite improvement in the appearance of the brain since the . The gyriform areas of increased signal on the flair images are less prominent today particularly the left frontal area than they were on the . There is a small area remaining in the occipital lobe which is unchanged to slightly improved. I don't see any evidence of an acute stroke. No acute mass or mass effect. Ta Cordero MD Micro and Labs Laboratory Tests Test 07/04/17 09:40 07/04/17 14:09 Blood Urea Nitrogen 3 Creatinine 0.67 Random Glucose 131 Calcium Level 7.9 Sodium Level 140 Potassium Level 2.7 Chloride Level 106 Carbon Dioxide Level 22.7 Anion Gap 11 Estimat Glomerular Filtration Rate 90 White Blood Count 8.4 Red Blood Count 3.38 Hemoglobin 10.4 Hematocrit 31.1 Mean Corpuscular Volume 91.9 Mean Corpuscular Hemoglobin 30.8 Mean Corpuscular Hemoglobin Concent 33.6 Red Cell Distribution Width 15.2 Platelet Count 262 Mean Platelet Volume 6.7 Date/Time Source Procedure Growth Status 07/01/17 09:50 Blood Peripheral Aerobic Blood Culture - Preliminary NO GROWTH IN 3 DAYS Resulted 07/01/17 09:50 Blood Peripheral Anaerobic Blood Culture - Preliminary NO GROWTH IN 3 DAYS Resulted 07/01/17 11:05 Cerebral Spinal Fluid Lumbar Puncture Acid Fast Stain Pending Received 07/01/17 11:05 Cerebral Spinal Fluid Lumbar Puncture Mycobacterial Culture Pending Received 07/01/17 11:15 Sputum Endotracheal Gram Stain - Final Complete 07/01/17 11:15 Sputum Culture - Final Escherichia Coli Complete 07/01/17 10:50 Urine Clean Catch Urine Culture - Final NO GROWTH IN 48 HOURS. Complete Tani Evans MD Jul 04, 2017 17:16
[2017-07-05] VITALS (18 sets, daily range): BP systolic 125–176; BP diastolic 65–94; PULSE 84–108; RESP 16–45; TEMP 98.4–99.6; O2SAT 93–100
[2017-07-05] MEDS ORDERED: cefTRIAXone INJ 1,000 MG in SODIUM CHLORIDE 0.9% INJ 100 ML IV SCH (02:00)
[2017-07-05] MEDS: CHLORHEXIDINE GLUCONATE 2 % 1 PACK (2 CLOTHS) TOP SCH (03:58)
[2017-07-05] MEDS: RESP: ALBUTEROL 2.5 MG/IPRATROPIUM 0.5 MG NEB (SCH) INH ×2 (04:30→10:28)
[2017-07-05 05:40] LABS: HEMATOCRIT 28.1 % (35.0-46.0); MEAN CELL VOLUME 92.4 FL (80.0-100.0); MEAN CORPUSCULAR HEMOGLOBIN 31.6 PG (27.0-34.0); MEAN CORPUSCULAR HGB CONC 34.2 % (32.0-36.0); PLATELET COUNT 285 TH/MM3 (150-450); RED BLOOD COUNT 3.04 MIL/MM3 (4.00-5.30); RED CELL DISTRIBUTION WIDTH 15.2 % (11.6-17.2); REVIEW FLAG FINAL; WHITE BLOOD COUNT 5.7 TH/MM3 (4.0-11.0)
[2017-07-05] MEDS: PHENYTOIN INJ 100 MG/2 ML VIAL IV PUSH SCH (05:49)
[2017-07-05] MEDS: HEPARIN SODIUM - SQ 10,000 UNITS/ML VIAL SQ SCH (05:49)
[2017-07-05] MEDS: DIAZEPAM 5 MG TAB PO SCH ×2 (05:49→13:49)
[2017-07-05] MEDS: SODIUM CHLORIDE 0.9% FLUSH 10 ML FLUSH IVF PRN (05:49)
[2017-07-05] MEDS: cloNIDine HCL 0.3 MG TAB PO SCH ×2 (05:49→13:48)
[2017-07-05 05:56] LABS: BICARBONATE 24.2 MEQ/L (21.0-32.0); POTASSIUM 3.3 MEQ/L (3.5-5.1)
[2017-07-05] MEDS: CHLORHEXIDINE 0.12% (ORAL KIT) 15 ML CUP MT SCH (07:02)
[2017-07-05] MEDS: POTASSIUM CHLOR 20 MEQ PREMIX 100 ML IV PRN (07:53)
[2017-07-05] MEDS: FAMOTIDINE 20 MG TAB PO SCH (07:53)
[2017-07-05] MEDS: DOCUSATE SODIUM 50 MG/SENNA 8.6 MG TAB PO SCH (07:53)
[2017-07-05] MEDS: MULTIVITAMIN TAB PO SCH (07:54)
[2017-07-05] MEDS: HYDROmorphone HCL PF 4 MG/ML VIAL IV PUSH PRN (07:54)
[2017-07-05] MEDS ORDERED: THIAMINE HCL 100 MG TAB PO SCH (09:00)
--- NOTE | 2017-07-05 13:51 | HHI.FF ---
Face to Face Verification Diagnosis: (1) Seizure (2) Respiratory failure (3) Lung mass Physical Therapy Order: Evaluate and Treat, Improve ambulation, Strength and gait training Occupational Therapy Order: Evaluate and Treat, Improve ADL, Gross motor coordination, Fine motor coordination Home Health Nursing Order: Medical education I have seen patient Ximena Suarez on 07/05/17. My clinical findings support the need for the requested home health care services because: Ltd mobility - disease progression Deconditioned w/ increased weakness Med compliance is questionable Limited ability to care for self High risk of falls I certify that my clinical findings support that this patient is homebound because: Unsteady gait/balance Daniel Chandra MD Jul 05, 2017 13:51
[2017-07-05] MEDS ORDERED: PHENYTOIN SODIUM 100 MG CAP PO SCH (14:00)
[2017-07-05] MEDS ORDERED: DIAZEPAM 5 MG TAB PO SCH (14:00)
[2017-07-05] MEDS ORDERED: LEVOFLOXACIN 750 MG TAB PO SCH (14:00)
[2017-07-05] MEDS ORDERED: THERTAB15 PO (14:03)
[2017-07-05] MEDS ORDERED: FAMO20TA2 PO (14:03)
[2017-07-05] MEDS ORDERED: THIA100 PO (14:03)
[2017-07-05] MEDS ORDERED: DILA100C PO (14:03)
[2017-07-05] MEDS ORDERED: CLON-481 PO (14:03)
[2017-07-05] MEDS ORDERED: LEVA750T9 PO (14:03)
--- NOTE | 2017-07-05 14:10 | HHI.DS ---
Discharge Summary Admission Date Jul 01, 2017 at 10:46 Discharge Date: Jul 05, 2017 Admitting Diagnosis respiratory failure, seizure, fever, vomiting Brief History Delayed note entry: seen and evaluated in the emergency department around 10: 45am. This is a 57-year-old female with an unknown past medical history who presented by EMS with the complaint of vomiting blood times a few days per report. Unfortunately, when she was evaluated by the ER physician, she was obtunded with a gaze deviation and hypoxic on room air. She was emergently intubated. During stat head CT, she had a witnessed generalized tonic-clonic seizure. She was given fosphenytoin. Neurology was consulted for possible stroke alert, but given questionable GI bleed and witnessed seizure, TPA was not administered. In the emergency department, however she was febrile to 100.6F, tachycardic, hypertensive. LP was performed in the emergency department which showed normal glucose, normal protein, with clear CSF. OG tube was placed without coffee grounds emesis or significant output. I personally instilled 300mL free water into the OG tube and hooked it up to LIWS and did not get any coffee grounds or bright red bloody output, only clear liquid output from her OG tube. Screening chest x-ray post intubation demonstrated right hilar mass. Follow-up CT chest abdomen and pelvis with IV contrast demonstrated multiple lung lesions concerning for a static lung cancer. CT abdomen and pelvis demonstrated possible small bowel obstruction with significant stool burden in the sigmoid and rectum. Lactate is normal. She does have leukocytosis to 20,000. No additional information is available from the patient. ROS is unobtainable CBC/BMP: 07/05/17 0410 07/05/17 0410 Significant Findings Laboratory Tests Test 07/02/17 14:11 07/03/17 01:23 07/03/17 04:08 07/03/17 11:35 Hemoglobin 9.0 GM/DL (11.6-15.3) 9.7 GM/DL (11.6-15.3) 10.7 GM/DL (11.6-15.3) Hematocrit 26.7 % (35.0-46.0) 27.7 % (35.0-46.0) 31.3 % (35.0-46.0) Calcium Level 7.7 MG/DL (8.5-10.1) 7.5 MG/DL (8.5-10.1) Red Blood Count 3.39 MIL/MM3 (4.00-5.30) Mean Platelet Volume 6.8 FL (7.0-11.0) Potassium Level 3.4 MEQ/L (3.5-5.1) Chloride Level 109 MEQ/L (98-107) Estimat Glomerular Filtration Rate 87 ML/MIN (>89) Blood Gas HCO3 21 mmol/L (22-26) Arterial Blood pH 7.53 (7.380-7.420) Arterial Blood Partial Pressure CO2 25 mmHg (38-42) Blood Gas Hemoglobin 10.0 G/DL (12.0-16.0) Test 07/04/17 09:40 07/04/17 14:09 07/04/17 17:45 07/05/17 00:42 Blood Urea Nitrogen 3 MG/DL (7-18) Random Glucose 131 MG/DL (74-106) Calcium Level 7.9 MG/DL (8.5-10.1) Potassium Level 2.7 MEQ/L (3.5-5.1) Red Blood Count 3.38 MIL/MM3 (4.00-5.30) Hemoglobin 10.4 GM/DL (11.6-15.3) Hematocrit 31.1 % (35.0-46.0) Mean Platelet Volume 6.7 FL (7.0-11.0) Phenytoin (Dilantin) Level 4.6 MCG/ML (10.0-20.0) Test 07/05/17 04:10 Red Blood Count 3.04 MIL/MM3 (4.00-5.30) Hemoglobin 9.6 GM/DL (11.6-15.3) Hematocrit 28.1 % (35.0-46.0) Blood Urea Nitrogen 5 MG/DL (7-18) Random Glucose 118 MG/DL (74-106) Calcium Level 8.1 MG/DL (8.5-10.1) Potassium Level 3.3 MEQ/L (3.5-5.1) PE at Discharge gen: awake and alert, on room air in NAD heent: nc. at. perrl. mmm. neck: trachea midline. no jvd. chest: unlabored. room air. equal chest rise cv: normal rate, regular rhythm. sinus. abd: soft, nontender, nondistended. no guarding. extr: distal pulses 2+. no edema. neuro: RASS 0. GCS 15. neuro intact. no focal deficits. Hospital Course Hospital Course: This is a 57-year-old female with an unknown past medical history who presented by EMS with the complaint of vomiting blood times a few days per report. Unfortunately, when she was evaluated by the ER physician, she was obtunded with a gaze deviation and hypoxic on room air. She was emergently intubated. During stat head CT, she had a witnessed generalized tonic-clonic seizure. She was given fosphenytoin. Neurology was consulted for possible stroke alert, but given questionable GI bleed and witnessed seizure, TPA was not administered. In the emergency department, however she was febrile to 100.6F, tachycardic, hypertensive. LP was performed in the emergency department which showed normal glucose, normal protein, with clear CSF. OG tube was placed without coffee grounds emesis or significant output. I personally instilled 300mL free water into the OG tube and hooked it up to LIWS and did not get any coffee grounds or bright red bloody output, only clear liquid output from her OG tube. Screening chest x-ray post intubation demonstrated right hilar mass. Follow-up CT chest abdomen and pelvis with IV contrast demonstrated multiple lung lesions concerning for a static lung cancer. CT abdomen and pelvis demonstrated possible small bowel obstruction with significant stool burden in the sigmoid and rectum. Lactate is normal. She does have leukocytosis to 20,000. No additional information is available from the patient. ROS is unobtainable Subjective: 07/02: MRI last night with concern for possible cerebritis vs. encephalitis. EEG with ? seizure spikes. neuro following. patient follows commands this morning x 4. given concern for encephalitis, ampicillin and acyclovir were added this morning. cultures NGTD. wbc downtrending. 07/03: agitated delirium worsened overnight despite fentanyl, versed, and propofol infusions. pulled out all iv's. central line placed overnight. sputum culture growing GNRs, otherwise cultures NGTD. MRA/MRV negative. still off pathway. 07/04: extubated yesterday. doing well. tolerating diet. sputum growing e.coli. repeat MRI with improved evidence of cortical enhancement. 07/05: had long discussion with patient today. she knows about her lung mass and has chosen not to work it up. she thinks it is cancer. she said she would be interested in seeing a advertising clerk "because I have grandkids that I would like to see grow up." She wants to go home. she says she has had these episodes in the past and was previously following a neurologist and a doctor, but does not have one currently. she feels safe to go home with her son, who can take care of her. she wants referral for a PCP as well as pulmonology. I counseled her that if she had any additional symptoms, she needed to follow up with the PCP, neurologist, advertising clerk, and if anything concerned her, she should return to the ER at [place] for repeat evaluation. She expressed understanding of this and is ready to go home. She tolerated PO levaquin which she will need to take for 4 additional days to cover her community acquired aspiration pneumonia, and she has tolerated her dilantin PO for seizures. Dr. Evans cleared her for discharge and wants to see her in clinic in 1-2 weeks. Pt Condition on Discharge: Stable Discharge Disposition: Disch w/ Home Health Serv Discharge Instructions DIET: Follow Instructions for: As Tolerated, No Restrictions Activities you can perform: Regular-No Restrictions Daniel Chandra MD Jul 05, 2017 14:10
[2017-07-05] MEDS ORDERED: RESP: ALBUTEROL 2.5 MG/IPRATROPIUM 0.5 MG NEB (SCH) INH (16:00)
[2017-07-06 13:57] LABS: CF EBV DNA PCR RESULT Negative (Negative); CF EBV SPEC SOURCE CSF; CMV PCR SPECIMEN SOURCE CSF
[2017-07-06] MEDS ORDERED: DIAZEPAM 5 MG TAB PO SCH (14:00)
[2017-07-07] MEDS ORDERED: DIAZEPAM 5 MG TAB PO SCH (14:00)
[2017-07-07 17:53] LABS: CALIFORNIA ENCEPH AB IGG <1:4 (<1:4); CALIFORNIA ENCEPH AB IGM <1:4 (<1:4); EAST EQUINE ENCEPH AB IGG <1:4 (<1:4); EAST EQUINE ENCEPH AB IGM <1:4 (<1:4); ST LOUIS ENCEPH AB IGG <1:4 (<1:4); ST LOUIS ENCEPH AB IGM <1:4 (<1:4); VDRL CSF NON-REACTIVE (NON-REACTVE)
[2017-07-08 00:05] LABS: CSF CRYPTOCOCCUS AG CONF ND (NOT DETECTD)
== END 2017-07-05 19:01 | disposition home or self-care (01) | DRG 208 ==
LOC: NEPC 09:22 → NEDA 10:46 → HIME 13:00
PROVIDERS: ADMIT Internal Medicine Critical Care Medicine; ATTEND Internal Medicine Critical Care Medicine
PROC: 5A1945Z Respiratory Ventilation, 24-96 Consecutive Hours (ICD-10-PCS; principal; 2017-07-01)
PROC: 009U3ZX Drainage of Spinal Canal, Percutaneous Approach, Diagnostic (ICD-10-PCS; 2017-07-01)
PROC: 0BH17EZ Insertion of Endotracheal Airway into Trachea, Via Natural or Artificial Opening (ICD-10-PCS; 2017-07-01)
PROC: 0D9670Z Drainage of Stomach with Drainage Device, Via Natural or Artificial Opening (ICD-10-PCS; 2017-07-01)
PROC: 05HM33Z Insertion of Infusion Device into Right Internal Jugular Vein, Percutaneous Approach (ICD-10-PCS; 2017-07-02)
DX: J96.01 Acute respiratory failure with hypoxia (principal); J69.0 Pneumonitis due to inhalation of food and vomit; G93.40 Encephalopathy, unspecified; E44.0 Moderate protein-calorie malnutrition; F10.239 Alcohol dependence with withdrawal, unspecified; G40.89 Other seizures; J96.02 Acute respiratory failure with hypercapnia; G40.409 Other generalized epilepsy and epileptic syndromes, not intractable, without status epilepticus; R11.10 Vomiting, unspecified; R00.0 Tachycardia, unspecified; I10 Essential (primary) hypertension; R91.8 Other nonspecific abnormal finding of lung field; R73.9 Hyperglycemia, unspecified; E87.6 Hypokalemia
CPT/HCPCS: 31500; 36556; 36600; 62270; 70450; 70544; 70546; 70553; 71010; 71260; 74177; 76937; 80048; 80053; 80185; 80307; 81001; 82140; 82435; 82550; 82565; 82805; 82945; 82947; 82948; 83605; 83690; 83735; 84132; 84157; 84295; 84484; 84520; 85014; 85018; 85025; 85027; 85610; 85730; 86403; 86592; 86651; 86652; 86653; 86654; 86703; 86850; 86900; 86901; 87015; 87040; 87070; 87077; 87086; 87116; 87186; 87205; 87206; 87497; 87529; 87799; 89051; 93005; 94002; 94003; 94150; 94640; 94664; 94667; 94668; 95819; 96365; 96375; 99292; A9579; C9113; J0133; J0290; J0330; J0456; J0696; J0713; J1100; J1165; J1170; J1630; J1644; J2060; J2250; J2354; J3010; J3370; J3411; J3480; J7030; J7040; J7050; Q2009; Q9967

== ENCOUNTER 2017-07-30 14:36 | Emergency (ER) | payer MEDICAID ==
[~2017-07-30] VITALS: Ht 162.6 cm; Wt 45.2 kg
[~2017-07-30 14:36] MED LIST: CLON-481 PO; DILA100C PO; FAMO20TA2 PO; LEVA750T9 PO; THERTAB15 PO; THIA100 PO
[2017-07-30 14:39] VITALS: BP 207/134; PULSE 120; RESP 22; TEMP 98.1; O2SAT 100
--- NOTE | 2017-07-30 15:22 | PD ---
Physical Exam Time Seen by Provider: 15:19 Narrative 57yo F c/o high blood pressure, SOB, pain all over x 3 days. Denies chest pain. Denies fever, vomiting. Denies anticoagulants. Hx bleeding ulcers, COPD , R lung mass and nodules. Patient seen in triage. VS reviewed. Awaiting bed placement. See next providers note for final patient disposition. Data Data Last Documented VS Vital Signs Date Time Temp Pulse Resp B/P (MAP) Pulse Ox O2 Delivery O2 Flow Rate FiO2 07/30/17 14:39 98.1 120 22 207/134 (158) 100 Room Air MDM Supervised Visit with PATIENCE: Marta Reis Jul 30, 2017 15:22
--- NOTE | 2017-07-30 15:56 | RADRPT ---
EXAM DATE/TIME: 07/30/2017 15:37 [facility] COMPARISON: CT THORAX W CONTRAST, July 01, 2017, 12:35. CHEST SINGLE AP, July 02, 2017, 22:47. INDICATIONS : Chest pain and shortness of breath- Evaluate for pneumonia. Lung cancer... MEDICAL HISTORY : Hypertension. Chronic obstructive pulmonary disease. Seizures. Lung mass and nodules. SURGICAL HISTORY : orthopedic. ENCOUNTER: Initial ACUITY: 3 days PAIN SCORE: 5/10 LOCATION: Bilateral chest FINDINGS: PA and lateral views of the chest demonstrate the lungs to be symmetrically aerated without evidence of acute infiltrate or effusion. The previous noted right hilar mass is again identified and measure s up to 3 cm. The nodular opacity previously noted right upper lobe is stable as well. The cardiomedi astinal contours are unremarkable. There is a mild compression fracture deformity of the lower thorac ic spine with invagination of the endplates. CONCLUSION: 1. No evidence of pneumonia. 2. Right lung mass again visualized. 3. There is nodularity in the right upper lobe. Angel Mckeon MD on July 30, 2017 at 15:51 Board Certified Radiologist. This report was verified electronically.
[2017-07-30 16:11] LABS: BASOPHIL % 0.6 % (0.0-2.0); EOSINOPHIL # 0.1 TH/MM3 (0-0.4); EOSINOPHIL % 1.3 % (0.0-4.0); HEMATOCRIT 32.3 % (35.0-46.0); HEMOGLOBIN 10.8 GM/DL (11.6-15.3); LYMPH % 20.4 % (9.0-44.0); LYMPHOCYTE # 1.2 TH/MM3 (1.0-4.8); MEAN CORPUSCULAR HEMOGLOBIN 30.7 PG (27.0-34.0); MEAN CORPUSCULAR HGB CONC 33.4 % (32.0-36.0); MEAN PLATELET VOLUME 6.3 FL (7.0-11.0); MONO % 9.8 % (0.0-8.0); MONOCYTE # 0.6 TH/MM3 (0-0.9); NEUT % 67.9 % (16.0-70.0); PLATELET COUNT 310 TH/MM3 (150-450); RED BLOOD COUNT 3.51 MIL/MM3 (4.00-5.30); WHITE BLOOD COUNT 5.9 TH/MM3 (4.0-11.0)
[2017-07-30 16:20] LABS: PROTHROMBIN TIME - PATIENT 9.8 SEC (9.8-11.6)
[2017-07-30 16:33] LABS: BICARBONATE 30.8 MEQ/L (21.0-32.0); BLOOD UREA NITROGEN 12 MG/DL (7-18); CALCIUM 8.9 MG/DL (8.5-10.1); CHLORIDE 102 MEQ/L (98-107); CREATININE 0.68 MG/DL (0.50-1.00); GLOMERULAR FILTRATION RATE 89 ML/MIN (>89); GLUCOSE,RANDOM 85 MG/DL (74-106); MAGNESIUM 2.4 MG/DL (1.5-2.5); SODIUM (NA) 138 MEQ/L (136-145)
[2017-07-30 16:37] LABS: TROPONIN I LESS THAN 0.02 NG/ML (0.02-0.05)
[2017-07-30 16:53] VITALS: O2SAT 99
[2017-07-30] MEDS ORDERED: ALBUAER3 INH (17:49)
[2017-07-30] MEDS ORDERED: DULE100A INH (17:49)
[2017-07-30] MEDS ORDERED: GABA600T PO ×2 (17:49→20:14)
[2017-07-30] MEDS ORDERED: CARV12.52 PO (17:49)
[2017-07-30] MEDS ORDERED: ZOFR4TAB PO (17:49)
[2017-07-30] MEDS ORDERED: AMLO10TA2 PO ×2 (17:49→20:14)
[2017-07-30] MEDS ORDERED: METH5TAB PO (17:49)
[2017-07-30] MEDS ORDERED: CALC1TAB12 PO (17:49)
[2017-07-30] MEDS ORDERED: VITA500012 PO (17:49)
[2017-07-30] MEDS ORDERED: LEVA.63I NEB (17:49)
[2017-07-30] MEDS ORDERED: DULO1CAP3 PO (17:49)
[2017-07-30] MEDS ORDERED: POTA10TA2 PO (17:49)
[2017-07-30] MEDS ORDERED: LINA290C PO (17:49)
[2017-07-30] MEDS ORDERED: VIST25CA PO (17:49)
[2017-07-30] MEDS ORDERED: PROT40TA PO (17:49)
[2017-07-30] MEDS ORDERED: LISI40TA PO ×2 (17:49→20:14)
[2017-07-30] MEDS ORDERED: TIZA4 PO (17:49)
[2017-07-30] MEDS ORDERED: BUPR150XL PO (17:49)
[2017-07-30] MEDS ORDERED: SPIRCAP INH (17:49)
--- NOTE | 2017-07-30 17:58 | PD ---
HPI Chief Complaint: Respiratory Symptoms Time Seen by Provider: 16:35 Travel History International Travel<30 days: No Contact w/Intl Traveler<30days: No Traveled to known affect area: No History of Present Illness HPI The patient is 57 years old and has total body pain for last 3 days associated with shortness of breath. She also reports high blood pressure home due to discontinuation of her medications due to no ongoing provider follow-up. Patient is known to have lung nodules. Initially she was unable to establish care due to insurance problems however she is here today with an interest in resuming ongoing medical care. Severity moderate. No modifying factor. PFSH Past Medical History Arthritis: Yes Asthma: No Autoimmune Disease: Yes Anxiety: Yes Depression: Yes Heart Rhythm Problems: No Cardiovascular Problems: Yes High Cholesterol: No Chemotherapy: No Chest Pain: No Congestive Heart Failure: No COPD: Yes Cerebrovascular Accident: Yes (Possible TIA in past) Diabetes: No Diminished Hearing: No (UNOBTAINABLE) Endocrine: No Gastrointestinal Disorders: Yes GERD: Yes Headaches: Yes (Last week) Hiatal Hernia: No Hypertension: Yes Implanted Vascular Access Dvce: Yes Kidney Stones: No Musculoskeletal: Yes Neurologic: Yes Psychiatric: Yes Respiratory: Yes Migraines: Yes (6 months ago) Radiation Therapy: No Renal Failure: Yes (ARF (8 months ago)) Seizures: Yes Sickle Cell Disease: No Thyroid Disease: No Ulcer: Yes Past Surgical History Abdominal Surgery: Yes (Ulcers) AICD: No Arteriovenous Shunt: No Cardiac Surgery: No Ear Surgery: No Endocrine Surgery: No Eye Surgery: No Genitourinary Surgery: No Gynecologic Surgery: Yes (Hysterectomy (total)) Hysterectomy: Yes Insulin Pump: No Oral Surgery: No Pacemaker: No Thoracic Surgery: No Other Surgery: Yes Social History Alcohol Use: Yes (OCC) Tobacco Use: Yes (DAILY VAPE) Substance Use: No Allergies-Medications (Allergen,Severity, Reaction): Coded Allergies: codeine (Verified Allergy, Severe, 07/30/17) meloxicam (Verified Allergy, Severe, 07/30/17) NSAIDS (Non-Steroidal Anti-Inflamma (Verified Allergy, Intermediate, ) STOMACH ULCERS Reported Meds & Prescriptions Reported Meds & Active Scripts Active Reported Zanaflex (Tizanidine HCl) 4 Mg Tab 4 Mg PO TID Spiriva Handihaler (Tiotropium Inh) 18 Mcg Cap 18 Mcg INH DAILY 1 capsule = 18 mcg Potassium Chloride ER (Potassium Chloride) 10 Meq Tab 10 Meq PO DAILY Protonix (Pantoprazole Sodium) 40 Mg Tab 40 Mg PO DAILY Zofran (Ondansetron HCl) 4 Mg Tab 4 Mg PO Q8HR PRN Dulera 120 Act Inh (Mometasone-Formoterol 120 Act Inh) 100-5 Mcg/Act Inh 2 Puff INH BID Methadone (Methadone HCl) 5 Mg Tab 5 Mg PO DAILY Lisinopril 40 Mg Tab 40 Mg PO DAILY Linzess (Linaclotide) 290 Mcg Cap 290 Mcg PO DAILY Xopenex Neb (Levalbuterol HCl) 0.63 Mg/3 Ml Neb 0.63 Mg NEB QID Vistaril (Hydroxyzine Pamoate) 25 Mg Cap 25 Mg PO TID PRN Gabapentin 600 Mg Tab 600 Mg PO HS Ergocalciferol 50,000 Unit Cap 50,000 Units PO Q7D Duloxetine DR (Duloxetine HCl) 60 Mg Capdr 60 Mg PO DAILY Carvedilol 12.5 Mg Tab 12.5 Mg PO BID Calcium 500 +D (Calcium Carbonate-Cholecalciferol) 500-400 Mg-Unit Tab 1 Tab PO DAILY Wellbutrin Xl 24 HR (Bupropion HCl) 150 Mg Tab 150 Mg PO DAILY Amlodipine (Amlodipine Besylate) 10 Mg Tab 10 Mg PO DAILY Proair Hfa 8.5 GM Inh (Albuterol Sulfate) 90 Mcg/Act Aer 2 Puff INH Q4-6H PRN 108 mcg/actuation Review of Systems Except as stated in HPI: all other systems reviewed are Neg Physical Exam Narrative GENERAL: 57-year-old female pleasant well-nourished well-developed SKIN: Warm and dry. HEAD: Atraumatic. Normocephalic. EYES: Pupils equal and round. No scleral icterus. No injection or drainage. ENT: No nasal bleeding or discharge. Mucous membranes pink and moist. NECK: Trachea midline. No JVD. CARDIOVASCULAR: Minimal tachycardia. Regular rhythm. RESPIRATORY: No significant dyspnea or tachypnea. GASTROINTESTINAL: Abdomen soft, non-tender, nondistended. Hepatic and splenic margins not palpable. MUSCULOSKELETAL: Extremities without clubbing, cyanosis, or edema. No obvious deformities. NEUROLOGICAL: Awake and alert. No obvious cranial nerve deficits. Motor grossly within normal limits. Five out of 5 muscle strength in the arms and legs. Normal speech. PSYCHIATRIC: Appropriate mood and affect; insight and judgment normal. Data Data Last Documented VS Vital Signs Date Time Temp Pulse Resp B/P (MAP) Pulse Ox O2 Delivery O2 Flow Rate FiO2 07/30/17 19:25 88 16 167/104 (125) 98 07/30/17 18:23 Room Air 07/30/17 14:39 98.1 Vital signs reviewed Orders Orders Electrocardiogram (07/30/17 15:24) Basic Metabolic Panel (Bmp) (07/30/17 15:24) Ckmb (Isoenzyme) Profile (07/30/17 15:24) Complete Blood Count With Diff (07/30/17 15:24) Magnesium (Mg) (07/30/17 15:24) Prothrombin Time / Inr (Pt) (07/30/17 15:24) Act Partial Throm Time (Ptt) (07/30/17 15:24) Troponin I (07/30/17 15:24) Ecg Monitoring (07/30/17 15:24) Iv Access Insert/Monitor (07/30/17 15:24) Oximetry (07/30/17 15:24) Oxygen Administration (07/30/17 15:24) Chest, Pa & Lat (07/30/17 15:24) Labetalol Inj (Trandate Inj) (07/30/17 18:30) Clonidine (Catapres) (07/30/17 18:30) Acetaminophen (Tylenol) (07/30/17 19:00) Labs Laboratory Tests Test 07/30/17 15:54 White Blood Count 5.9 TH/MM3 Red Blood Count 3.51 MIL/MM3 Hemoglobin 10.8 GM/DL Hematocrit 32.3 % Mean Corpuscular Volume 92.0 FL Mean Corpuscular Hemoglobin 30.7 PG Mean Corpuscular Hemoglobin Concent 33.4 % Red Cell Distribution Width 16.0 % Platelet Count 310 TH/MM3 Mean Platelet Volume 6.3 FL Neutrophils (%) (Auto) 67.9 % Lymphocytes (%) (Auto) 20.4 % Monocytes (%) (Auto) 9.8 % Eosinophils (%) (Auto) 1.3 % Basophils (%) (Auto) 0.6 % Neutrophils # (Auto) 4.0 TH/MM3 Lymphocytes # (Auto) 1.2 TH/MM3 Monocytes # (Auto) 0.6 TH/MM3 Eosinophils # (Auto) 0.1 TH/MM3 Basophils # (Auto) 0.0 TH/MM3 CBC Comment DIFF FINAL Differential Comment Prothrombin Time 9.8 SEC Prothromb Time International Ratio 1.0 RATIO Activated Partial Thromboplast Time 24.1 SEC Blood Urea Nitrogen 12 MG/DL Creatinine 0.68 MG/DL Random Glucose 85 MG/DL Calcium Level 8.9 MG/DL Magnesium Level 2.4 MG/DL Sodium Level 138 MEQ/L Potassium Level 3.6 MEQ/L Chloride Level 102 MEQ/L Carbon Dioxide Level 30.8 MEQ/L Anion Gap 5 MEQ/L Estimat Glomerular Filtration Rate 89 ML/MIN Total Creatine Kinase 44 U/L Troponin I LESS THAN 0.02 NG/ML MDM Medical Decision Making Medical Screen Exam Complete: Yes Emergency Medical Condition: Yes Medical Record Reviewed: Yes Differential Diagnosis Pneumonia, cancer, medication refill Narrative Course CBC & BMP Diagram 07/30/17 15:54 Calcium Level 8.9, Magnesium Level 2.4 Last Impressions Chest X-Ray 07/30/17 1524 Signed Impressions: Service Date/Time: Sunday, July 30, 2017 15:37 - CONCLUSION: 1. No evidence of pneumonia. 2. Right lung mass again visualized. 3. There is nodularity in the right upper lobe. Angel Mckeon MD Patient is known to have multiple nodules throughout the lung concerning for cancer. The patient is aware of the diagnosis and has difficulty establishing follow-up and case management has seen the patient and arranged for a Medicare interview with initiation of coverage and planned shortly thereafter. The patient understands the necessity of strict follow-up. She has no medical emergency that requires inpatient management however has a very serious diagnosis still and will require ongoing follow-up. The patient understands this and has been given the resources necessary for care. Hypertension noted and labetalol and clonidine ordered. The oncoming provider will follow-up the blood pressure and it normalized patient can go home with a prescription and plan for follow-up as per the case management. Diagnosis Primary Impression: Tumors Additional Impression: Hypertension Qualified Codes: I10 - Essential (primary) hypertension Referrals: [facility] call for appointment Med/Other Pt SpecificInfo: No Change to Meds Disposition: 01 DISCHARGE HOME Condition: Stable Reji Narvaez MD Jul 30, 2017 17:58
[2017-07-30 18:23] VITALS: BP 212/130; PULSE 101; RESP 19; O2SAT 99
[2017-07-30] MEDS ORDERED: LABETALOL HCL 100 MG/20 ML VIAL IV PUSH ONE ×2 (18:30→20:15)
[2017-07-30] MEDS ORDERED: cloNIDine HCL 0.1 MG TAB PO ONE (18:30)
[2017-07-30 18:47] VITALS: BP 178/101; PULSE 93
[2017-07-30] MEDS ORDERED: ACETAMINOPHEN 325 MG TAB PO ONE (19:00)
[2017-07-30 19:25] VITALS: BP 167/104; PULSE 88; RESP 16; O2SAT 98
--- NOTE | 2017-07-30 20:06 | PD ---
Physical Exam Date Seen by Provider: Jul 30, 2017 Time Seen by Provider: 20:04 Narrative Accepted in transfer of care from Dr. Narvaez Data Data Last Documented VS Vital Signs Date Time Temp Pulse Resp B/P (MAP) Pulse Ox O2 Delivery O2 Flow Rate FiO2 07/30/17 19:25 88 16 167/104 (125) 98 07/30/17 18:23 Room Air 07/30/17 14:39 98.1 Orders Orders Electrocardiogram (07/30/17 15:24) Basic Metabolic Panel (Bmp) (07/30/17 15:24) Ckmb (Isoenzyme) Profile (07/30/17 15:24) Complete Blood Count With Diff (07/30/17 15:24) Magnesium (Mg) (07/30/17 15:24) Prothrombin Time / Inr (Pt) (07/30/17 15:24) Act Partial Throm Time (Ptt) (07/30/17 15:24) Troponin I (07/30/17 15:24) Ecg Monitoring (07/30/17 15:24) Iv Access Insert/Monitor (07/30/17 15:24) Oximetry (07/30/17 15:24) Oxygen Administration (07/30/17 15:24) Chest, Pa & Lat (07/30/17 15:24) Labetalol Inj (Trandate Inj) (07/30/17 18:30) Clonidine (Catapres) (07/30/17 18:30) Acetaminophen (Tylenol) (07/30/17 19:00) Labetalol Inj (Trandate Inj) (07/30/17 20:15) Labs Laboratory Tests Test 07/30/17 15:54 White Blood Count 5.9 TH/MM3 Red Blood Count 3.51 MIL/MM3 Hemoglobin 10.8 GM/DL Hematocrit 32.3 % Mean Corpuscular Volume 92.0 FL Mean Corpuscular Hemoglobin 30.7 PG Mean Corpuscular Hemoglobin Concent 33.4 % Red Cell Distribution Width 16.0 % Platelet Count 310 TH/MM3 Mean Platelet Volume 6.3 FL Neutrophils (%) (Auto) 67.9 % Lymphocytes (%) (Auto) 20.4 % Monocytes (%) (Auto) 9.8 % Eosinophils (%) (Auto) 1.3 % Basophils (%) (Auto) 0.6 % Neutrophils # (Auto) 4.0 TH/MM3 Lymphocytes # (Auto) 1.2 TH/MM3 Monocytes # (Auto) 0.6 TH/MM3 Eosinophils # (Auto) 0.1 TH/MM3 Basophils # (Auto) 0.0 TH/MM3 CBC Comment DIFF FINAL Differential Comment Prothrombin Time 9.8 SEC Prothromb Time International Ratio 1.0 RATIO Activated Partial Thromboplast Time 24.1 SEC Blood Urea Nitrogen 12 MG/DL Creatinine 0.68 MG/DL Random Glucose 85 MG/DL Calcium Level 8.9 MG/DL Magnesium Level 2.4 MG/DL Sodium Level 138 MEQ/L Potassium Level 3.6 MEQ/L Chloride Level 102 MEQ/L Carbon Dioxide Level 30.8 MEQ/L Anion Gap 5 MEQ/L Estimat Glomerular Filtration Rate 89 ML/MIN Total Creatine Kinase 44 U/L Troponin I LESS THAN 0.02 NG/ML [facility] Medical Record Reviewed: Yes Supervised Visit with PATIENCE: No Interpretation(s) EKG: Normal sinus rhythm rate 96 normal axis and intervals no acute ST elevation or injury pattern or ectopy noted Last Impressions Chest X-Ray 07/30/17 1524 Signed Impressions: Service Date/Time: Sunday, July 30, 2017 15:37 - CONCLUSION: 1. No evidence of pneumonia. 2. Right lung mass again visualized. 3. There is nodularity in the right upper lobe. Angel Mckeon MD CBC & BMP Diagram 07/30/17 15:54 Calcium Level 8.9, Magnesium Level 2.4 Vital Signs Date Time Temp Pulse Resp B/P (MAP) Pulse Ox O2 Delivery O2 Flow Rate FiO2 07/30/17 19:25 88 16 167/104 (125) 98 07/30/17 18:47 93 178/101 (126) 07/30/17 18:23 101 19 212/130 (157) 99 Room Air 07/30/17 16:53 99 Room Air 07/30/17 16:53 99 Room Air 07/30/17 14:39 98.1 120 22 207/134 (158) 100 Room Air CK 44, not elevated; troponin I less than 0.02, not elevated Differential Diagnosis Please refer to Dr. Narvaez's dictation Narrative Course Accepted in transfer of care from Dr. Narvaez for follow-up of patient response to antihypertensive medications and follow-up of pending labs At 8:05 PM lab values are found to be grossly within normal limits Patient's blood pressure had improved at 7:25 PM 167/104; repeat BP 171/101, HR 88 will repeat labetalol x 1 dose; patient reports that she needs a refill of her pain medication gabapentin as well as her blood pressure medication which includes clonidine and lisinopril. Patient is aware of need for close follow-up with local clinic has been referred to [facility]. Patient feels well denies any chest pain or shortness of breath also denies any referred neck jaw back shoulder arm pain also denies any nausea or vomiting near -syncope or syncope. Patient states she just needs refill of her blood pressure medication as she ran out after moving here from [place] the beginning of June. Diagnosis Primary Impression: Tumors Additional Impression: Hypertension Qualified Codes: I10 - Essential (primary) hypertension Referrals: [facility] call for appointment Patient Instructions: General Instructions Additional Instruction: Follow up with [facility] Return to the emergency department for a concerns or change in condition Take blood pressure medication as prescribed Med/Other Pt SpecificInfo: Prescription(s) given Scripts Gabapentin (Gabapentin) 600 Mg Tab 600 MG PO HS, #30 TAB 0 Refills Prov: Naa Epstein MD 07/30/17 Lisinopril (Lisinopril) 40 Mg Tab 40 MG PO DAILY for Blood Pressure Management, #30 TAB 0 Refills Prov: Naa Epstein MD 07/30/17 Amlodipine (Amlodipine) 10 Mg Tab 10 MG PO DAILY for Blood Pressure Management, #30 TAB 0 Refills Prov: Naa Epstein MD 07/30/17 Clonidine (Clonidine) 0.3 Mg Tab 0.3 MG PO Q12HR Y for SBP>180, DBP>95, #6 TAB 0 Refills Prov: Naa Epstein MD 07/30/17 Disposition: 01 DISCHARGE HOME Condition: Stable Naa Epstein MD Jul 30, 2017 20:06
[2017-07-30] MEDS ORDERED: CLON0.3T PO (20:14)
[2017-07-30 20:28] VITALS: BP 147/92; PULSE 84; RESP 18; O2SAT 98
--- NOTE | 2017-07-31 16:28 | EKG ---
Date Performed: 07/30/2017 Time Performed: 15:46:16 PTAGE: 57 years EKG: Sinus rhythm NORMAL ECG Compared to PREVIOUS TRACING , the rate has slowed. Nonspecific ST segments changes have resolved. [place] EVIOUS TRACIN07/01/2017 09.43 DOCTOR: Jose Ramos Interpretating Date/Time 07/31/2017 16:27:38
== END 2017-07-30 22:10 | disposition home or self-care (01) ==
LOC: NEPC 14:36
DX: R91.8 Other nonspecific abnormal finding of lung field (principal); I10 Essential (primary) hypertension; M19.90 Unspecified osteoarthritis, unspecified site; F41.9 Anxiety disorder, unspecified; J44.9 Chronic obstructive pulmonary disease, unspecified; K21.9 Gastro-esophageal reflux disease without esophagitis; N17.9 Acute kidney failure, unspecified; R56.9 Unspecified convulsions; Z86.73 Personal history of transient ischemic attack (TIA), and cerebral infarction without residual deficits
CPT/HCPCS: 71046; 80048; 82550; 83735; 84484; 85025; 85610; 85730; 93005; 96374; 96376

== ENCOUNTER 2017-09-02 10:52 | Emergency (ER) | payer MEDICAID ==
[~2017-09-02] VITALS: Ht 162.6 cm; Wt 55.0 kg
[~2017-09-02 10:52] MED LIST changes: +ALBUAER3 INH; +AMLO10TA2 PO; +BUPR150XL PO; +CALC1TAB12 PO; +CARV12.52 PO; -CLON-481 PO; +CLON0.3T PO; -DILA100C PO; +DULE100A INH; +DULO1CAP3 PO; -FAMO20TA2 PO; +GABA600T PO; +LEVA.63I NEB; -LEVA750T9 PO; +LINA290C PO; +LISI40TA PO; +METH5TAB PO; +POTA10TA2 PO; +PROT40TA PO; +SPIRCAP INH; -THERTAB15 PO; -THIA100 PO; +TIZA4 PO; +VIST25CA PO; +VITA500012 PO; +ZOFR4TAB PO
[2017-09-02 11:11] VITALS: BP 185/115; PULSE 108; RESP 25; TEMP 98.7; O2SAT 100
[2017-09-02] MEDS ORDERED: SODIUM CHLORID 0.9% 500 ML INJ 500 ML IV ONE (11:30)
[2017-09-02] MEDS ORDERED: cloNIDine HCL 0.2 MG TAB PO ONE (11:30)
[2017-09-02] MEDS ORDERED: methylPREDNISolone SOD SUCC 125 MG/2 ML VIAL IV PUSH ONE (11:30)
[2017-09-02] MEDS ORDERED: ACETAMINOPHEN/HYDROcodone 325 MG/5 MG TAB PO ONE (11:30)
[2017-09-02] MEDS: RESP: ALBUTEROL 2.5 MG/IPRATROPIUM 0.5 MG NEB (SCH) INH (11:52)
--- NOTE | 2017-09-02 11:53 | PD ---
HPI Chief Complaint: Respiratory Distress Time Seen by Provider: 11:20 Travel History International Travel<30 days: No Contact w/Intl Traveler<30days: No Traveled to known affect area: No History of Present Illness HPI 57-year-old female that presents to the ED for evaluation of shortness of breath for the past 2-3 days. The patient his been having cough and body aches as well as tenderness in bowel movement. 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 Patient doesn't have a doctor in the area just ran out of her medications. She supposedly and oxygen which she doesn't use it for unclear reasons. She states that she has no sick contacts at home. Per patient her bowel movements have become more "mucousy "per patient. She denies any nausea or vomiting. No blood in the stool. History of peptic ulcer disease. States having some epigastric pain that feels like a burning sensation. She also has a history of hypertension but only takes one blood pressure medication as she ran out of her blood pressure medications. She is supposed to be on 3 different ones. No urinary issues. Allergies to NSAIDs. Per patient and shortness of breath gets worse with exertion. No recent travel. Has not seen anybody for the tremor. PFSH Past Medical History Arthritis: Yes Asthma: No Autoimmune Disease: Yes Anxiety: Yes Depression: Yes Heart Rhythm Problems: No Cancer: Yes (LUNG 04/2017) Cardiovascular Problems: Yes High Cholesterol: No Chemotherapy: No Chest Pain: No Congestive Heart Failure: No COPD: Yes Cerebrovascular Accident: Yes (Possible TIA in past) Diabetes: No Diminished Hearing: No (UNOBTAINABLE) Endocrine: No Gastrointestinal Disorders: Yes GERD: Yes Headaches: Yes (Last week) Hiatal Hernia: No Hypertension: Yes Implanted Vascular Access Dvce: Yes Kidney Stones: No Musculoskeletal: Yes Neurologic: Yes Psychiatric: Yes Respiratory: Yes (COPD) Migraines: Yes (6 months ago) Radiation Therapy: No Renal Failure: Yes (ARF (8 months ago)) Seizures: Yes Sickle Cell Disease: No Thyroid Disease: No Ulcer: Yes Influenza Vaccination: Yes Past Surgical History Abdominal Surgery: Yes (Ulcers) AICD: No Appendectomy: Yes Arteriovenous Shunt: No Cardiac Surgery: No Ear Surgery: No Endocrine Surgery: No Eye Surgery: No Genitourinary Surgery: No Gynecologic Surgery: Yes (Hysterectomy (total)) Hysterectomy: Yes Insulin Pump: No Oral Surgery: No Pacemaker: No Thoracic Surgery: No Other Surgery: Yes Social History Alcohol Use: Yes (OCC) Tobacco Use: No (QUIT APR 2017) Substance Use: No Allergies-Medications (Allergen,Severity, Reaction): Coded Allergies: codeine (Verified Allergy, Severe, 07/30/17) meloxicam (Verified Allergy, Severe, 07/30/17) NSAIDS (Non-Steroidal Anti-Inflamma (Verified Allergy, Intermediate, ) STOMACH ULCERS Reported Meds & Prescriptions Reported Meds & Active Scripts Active Gabapentin 600 Mg Tab 600 Mg PO HS Lisinopril 40 Mg Tab 40 Mg PO DAILY Amlodipine (Amlodipine Besylate) 10 Mg Tab 10 Mg PO DAILY Clonidine (Clonidine HCl) 0.3 Mg Tab 0.3 Mg PO Q12HR PRN Reported Zanaflex (Tizanidine HCl) 4 Mg Tab 4 Mg PO TID Spiriva Handihaler (Tiotropium Inh) 18 Mcg Cap 18 Mcg INH DAILY 1 capsule = 18 mcg Potassium Chloride ER (Potassium Chloride) 10 Meq Tab 10 Meq PO DAILY Protonix (Pantoprazole Sodium) 40 Mg Tab 40 Mg PO DAILY Zofran (Ondansetron HCl) 4 Mg Tab 4 Mg PO Q8HR PRN Dulera 120 Act Inh (Mometasone-Formoterol 120 Act Inh) 100-5 Mcg/Act Inh 2 Puff INH BID Methadone (Methadone HCl) 5 Mg Tab 5 Mg PO DAILY Lisinopril 40 Mg Tab 40 Mg PO DAILY Linzess (Linaclotide) 290 Mcg Cap 290 Mcg PO DAILY Xopenex Neb (Levalbuterol HCl) 0.63 Mg/3 Ml Neb 0.63 Mg NEB QID Vistaril (Hydroxyzine Pamoate) 25 Mg Cap 25 Mg PO TID PRN Gabapentin 600 Mg Tab 600 Mg PO HS Ergocalciferol 50,000 Unit Cap 50,000 Units PO Q7D Duloxetine DR (Duloxetine HCl) 60 Mg Capdr 60 Mg PO DAILY Carvedilol 12.5 Mg Tab 12.5 Mg PO BID Calcium 500 +D (Calcium Carbonate-Cholecalciferol) 500-400 Mg-Unit Tab 1 Tab PO DAILY Wellbutrin Xl 24 HR (Bupropion HCl) 150 Mg Tab 150 Mg PO DAILY Amlodipine (Amlodipine Besylate) 10 Mg Tab 10 Mg PO DAILY Proair Hfa 8.5 GM Inh (Albuterol Sulfate) 90 Mcg/Act Aer 2 Puff INH Q4-6H PRN 108 mcg/actuation Review of Systems Except as stated in HPI: all other systems reviewed are Neg Physical Exam Narrative GENERAL: Well-nourished, well-developed patient in no apparent distress. SKIN: Warm and dry. HEAD: Atraumatic. Normocephalic. EYES: Pupils equal and round reactive to light and accommodation. No scleral icterus. No injection or drainage. ENT: No nasal bleeding or discharge. Mucous membranes pink and moist. TMs are clear with no sign of infection or perforation. No mastoid tenderness. Ear canals are intact bilaterally. No lymphadenopathy. Nostril mucosa is red and moist with clear mucus noted. No sinus tenderness to palpation noted. Tonsils are not enlarged or swollen. No ulvua Deviation. Tongue is midline. NECK: Trachea midline. No JVD. No meningeal signs noted CARDIOVASCULAR: Regular rate and rhythm. RESPIRATORY: No accessory muscle use. No wheezing in the upper and lower lung duff. Breath sounds equal bilaterally. GASTROINTESTINAL: Abdomen soft, non-tender, nondistended. Hepatic and splenic margins not palpable. MUSCULOSKELETAL: Extremities without clubbing, cyanosis, or edema. No obvious deformities. Full range of motion of the upper and lower extremities bilaterally. 2+ pulses bilaterally. NEUROLOGICAL: Awake and alert. No obvious cranial nerve deficits. Motor grossly within normal limits. Five out of 5 muscle strength in the arms and legs. Normal speech. PSYCHIATRIC: Appropriate mood and affect; insight and judgment normal. Data Data Last Documented VS Vital Signs Date Time Temp Pulse Resp B/P (MAP) Pulse Ox O2 Delivery O2 Flow Rate FiO2 09/02/17 11:12 100 Room Air 09/02/17 11:11 98.7 108 25 185/115 (138) Orders Orders Electrocardiogram (09/02/17 11:27) Complete Blood Count With Diff (09/02/17 11:27) Comprehensive Metabolic Panel (09/02/17 11:27) Ckmb (Isoenzyme) Profile (09/02/17 11:27) Troponin I (09/02/17 11:27) Prothrombin Time / Inr (Pt) (09/02/17 11:27) Act Partial Throm Time (Ptt) (09/02/17 11:27) Blood Culture (09/02/17 11:27) Lipase (09/02/17 11:27) D-Dimer (09/02/17 11:27) Magnesium (Mg) (09/02/17 11:27) Influenzae A/B Antigen (09/02/17 11:27) Chest, Single Ap (09/02/17 11:27) Ct Brain W/O Iv Contrast(Rout) (09/02/17 11:27) Iv Access Insert/Monitor (09/02/17 11:27) Ecg Monitoring (09/02/17 11:27) Oximetry (09/02/17 11:27) Methylprednisolone So Succ Inj (Solumedr (09/02/17 11:30) Albuterol-Ipratropium Neb (Duoneb Neb) (09/02/17 11:30) Clonidine (Catapres) (09/02/17 11:30) Acetamin-Hydrocod 325-5 Mg ([place] 5-325 (09/02/17 11:30) Sodium Chlorid 0.9% 500 Ml Inj (Ns 500 M (09/02/17 11:30) CKMB (09/02/17 12:01) CKMB% (09/02/17 12:01) Ed Discharge Order (09/02/17 13:54) Labs Laboratory Tests Test 09/02/17 12:01 White Blood Count 13.6 TH/MM3 Red Blood Count 3.54 MIL/MM3 Hemoglobin 11.0 GM/DL Hematocrit 31.8 % Mean Corpuscular Volume 89.8 FL Mean Corpuscular Hemoglobin 31.0 PG Mean Corpuscular Hemoglobin Concent 34.5 % Red Cell Distribution Width 15.7 % Platelet Count 365 TH/MM3 Mean Platelet Volume 7.3 FL Neutrophils (%) (Auto) 84.5 % Lymphocytes (%) (Auto) 7.1 % Monocytes (%) (Auto) 7.5 % Eosinophils (%) (Auto) 0.6 % Basophils (%) (Auto) 0.3 % Neutrophils # (Auto) 11.5 TH/MM3 Lymphocytes # (Auto) 1.0 TH/MM3 Monocytes # (Auto) 1.0 TH/MM3 Eosinophils # (Auto) 0.1 TH/MM3 Basophils # (Auto) 0.0 TH/MM3 CBC Comment DIFF FINAL Differential Comment Prothrombin Time 9.7 SEC Prothromb Time International Ratio 1.0 RATIO Activated Partial Thromboplast Time 30.4 SEC D-Dimer Quantitative (PE/DVT) 0.24 MG/L FEU Blood Urea Nitrogen 4 MG/DL Creatinine 0.56 MG/DL Random Glucose 87 MG/DL Total Protein 7.2 GM/DL Albumin 3.3 GM/DL Calcium Level 8.7 MG/DL Magnesium Level 2.2 MG/DL Alkaline Phosphatase 122 U/L Aspartate Amino Transf (AST/SGOT) 35 U/L Alanine Aminotransferase (ALT/SGPT) 22 U/L Total Bilirubin 0.2 MG/DL Sodium Level 131 MEQ/L Potassium Level 3.4 MEQ/L Chloride Level 98 MEQ/L Carbon Dioxide Level 24.6 MEQ/L Anion Gap 8 MEQ/L Estimat Glomerular Filtration Rate 111 ML/MIN Total Creatine Kinase 624 U/L Creatine Kinase MB 5.0 NG/ML Creatine Kinase MB % 0.8 % Troponin I LESS THAN 0.02 NG/ML Lipase 99 U/L MDM Medical Decision Making Medical Screen Exam Complete: Yes Emergency Medical Condition: Yes Medical Record Reviewed: Yes Interpretation(s) CBC & BMP Diagram 09/02/17 12:01 Total Protein 7.2, Albumin 3.3 L, Calcium Level 8.7, Magnesium Level 2.2, Alkaline Phosphatase 122 H, Aspartate Amino Transf (AST/SGOT) 35, Alanine Aminotransferase (ALT/SGPT) 22, Total Bilirubin 0.2 EKG shows sinus rhythm with no sign of acute ischemia or arrhythmia read by me and attending. troponin and CKMB WNL Last Impressions Head CT 09/02/17 1127 Signed Impressions: Service Date/Time: Saturday, September 02, 2017 11:44 - CONCLUSION: 1. Unremarkable and stable CT scan of the brain for patient's age. 2. Bilateral sinusitis Billy Skaggs MD Chest X-Ray 09/02/17 1127 Signed Impressions: Service Date/Time: Saturday, September 02, 2017 11:56 - CONCLUSION: 1. No significant interval change following extubation. 2. Redemonstration of dominant right lung mass and additional smaller focal masslike parenchymal opacities bilaterally, as above. Jaylen Sheldon MD flu negative Differential Diagnosis Bronchitis versus pneumonia versus URI versus COPD exacerbation versus PE Narrative Course 57-year-old female that presents to the ED for evaluation of shortness of breath. Labs and imaging is were ordered. Labs and imaging showed what appears to be likely a liver wells accounting sinusitis. Patient does have frontal headache. Patient was treated with this with antibiotics, we'll inhaler , prednisone,. Patient was given a short prescription refill of some of her blood pressure medications and her gabapentin. She was told to follow up closely with her PCP. See ED worsening symptoms. She understands reasons to come back. She feels better after inhalers and breathing treatments here. She understands that she needs to follow with her doctor for the tumor. Case was discussed in my attending Dr. Cummings who was made aware of findings and agrees with plan. Diagnosis Primary Impression: Acute bronchitis Qualified Codes: J20.9 - Acute bronchitis, unspecified Additional Impression: Hypertension Qualified Codes: I10 - Essential (primary) hypertension Patient Instructions: General Instructions Additional Instructions: Motrin and Tylenol for pain and fever. You can use [id number] antihistamine as well as well as Mucinex as needed for runny nose and congestion. Cough drops for cough as needed. Drink plenty of fluids. Follow-up with PCP. See ED for worsening symptoms. Med/Other Pt SpecificInfo: Prescription(s) given Scripts Azithromycin (Azithromycin) 250 Mg Tab 250 MG PO DIRECTED for Infection, #6 TAB 0 Refills Take 2 tabs (500 mg) on day 1 then 1 tab daily x 4 days. Prov: Lex Cummings MD 09/02/17 Prednisone (Prednisone) 20 Mg Tab 20 MG PO BID for 5 Days, #10 TAB 0 Refills Prov: Lex Cummings MD 09/02/17 Gabapentin (Gabapentin) 600 Mg Tab 600 MG PO HS, #30 TAB 0 Refills Prov: Lex Cummings MD 09/02/17 Lisinopril (Lisinopril) 40 Mg Tab 40 MG PO DAILY for Blood Pressure Management, #30 TAB 0 Refills Prov: Lex Cummings MD 09/02/17 Amlodipine (Amlodipine) 10 Mg Tab 10 MG PO DAILY for Blood Pressure Management, #30 TAB 0 Refills Prov: Lex Cummings MD 09/02/17 Clonidine (Clonidine) 0.3 Mg Tab 0.3 MG PO Q12HR Y for SBP>180, DBP>95, #6 TAB 0 Refills Prov: Lex Cummings MD 09/02/17 Albuterol 8.5 GM Inh (Proair Hfa 8.5 GM Inh) 90 Mcg/Act Aer 2 PUFF INH Q4-6H Y for SHORTNESS OF BREATH, #1 INHALER 0 Refills 108 mcg/actuation Prov: Lex Cummings MD 09/02/17 Disposition: 01 DISCHARGE HOME Condition: Stable Edenilson Geiger Sep 02, 2017 11:53
--- NOTE | 2017-09-02 11:57 | RADRPT ---
EXAM DATE/TIME: 09/02/2017 11:44 [facility] COMPARISON: CT BRAIN W/O CONTRAST, July 01, 2017, 9:49. INDICATIONS : Cephalgia for one week. RADIATION DOSE: 56.35 CTDIvol (mGy) MEDICAL HISTORY : Carcinoma, lung. Stroke Hypertension. SURGICAL HISTORY : None. ENCOUNTER: Initial ACUITY: 1 day PAIN SCALE: 10/10 LOCATION: Bilateral head TECHNIQUE: Multiple contiguous axial images were obtained of the head. Using automated exposure control and adj ustment of the mA and/or kV according to patient size, radiation dose was kept as low as reasonably a chievable to obtain optimal diagnostic quality images. DICOM format image data is available electro nically for review and comparison. FINDINGS: CEREBRUM: The ventricles are normal for age. No evidence of midline shift, mass lesion, hemorrhage or acute in farction. No extra-axial fluid collections are seen. POSTERIOR FOSSA: The cerebellum and brainstem are intact. The 4th ventricle is midline. The cerebellopontine angle i s unremarkable. EXTRACRANIAL: The visualized portion of the orbits is intact. There is bilateral maxillary sinus disease. There is bilateral ethmoid sinus disease. There is sinus disease in left sphenoid sinus. These are all new fin dings compared to prior exam. Frontal sinuses are grossly clear. SKULL: The calvaria is intact. No evidence of skull fracture. CONCLUSION: 1. Unremarkable and stable CT scan of the brain for patient's age. 2. Bilateral sinusitis Billy Skaggs MD on September 02, 2017 at 11:54 Board Certified Radiologist. This report was verified electronically.
[2017-09-02 12:21] LABS: AUTOMATED NEUTROPHIL # 11.5 TH/MM3 (1.8-7.7); BASOPHIL % 0.3 % (0.0-2.0); EOSINOPHIL # 0.1 TH/MM3 (0-0.4); EOSINOPHIL % 0.6 % (0.0-4.0); HEMATOCRIT 31.8 % (35.0-46.0); LYMPH % 7.1 % (9.0-44.0); MEAN CELL VOLUME 89.8 FL (80.0-100.0); MEAN CORPUSCULAR HGB CONC 34.5 % (32.0-36.0); MEAN PLATELET VOLUME 7.3 FL (7.0-11.0); MONO % 7.5 % (0.0-8.0); NEUT % 84.5 % (16.0-70.0); PLATELET COUNT 365 TH/MM3 (150-450); RED BLOOD COUNT 3.54 MIL/MM3 (4.00-5.30); RED CELL DISTRIBUTION WIDTH 15.7 % (11.6-17.2); WHITE BLOOD COUNT 13.6 TH/MM3 (4.0-11.0)
--- NOTE | 2017-09-02 12:28 | RADRPT ---
EXAM DATE/TIME: 09/02/2017 11:56 [facility] COMPARISON: CHEST SINGLE AP, July 02, 2017, 22:47. INDICATIONS : Shortness of breath. MEDICAL HISTORY : Hypertension. Chronic obstructive pulmonary disease. Seizures. Lung mass and nodules. SURGICAL HISTORY : None. ENCOUNTER: Initial ACUITY: 2 days PAIN SCORE: 0/10 LOCATION: chest FINDINGS: Interval removal of ETT, NGT and right IJ central line. Lungs are hyperexpanded with mild diffuse int erstitial prominence. Redemonstration of mass in the right midlung zone with additional focal parench ymal opacities in the right upper and lower lung zones unchanged from prior exam. There is also subpl eural opacity in the left lower lung zone better visualized on the current exam. Cardiomediastinal co ntours are within normal limits. Remainder of the exam is unchanged. CONCLUSION: 1. No significant interval change following extubation. 2. Redemonstration of dominant right lung mass and additional smaller focal masslike parenchymal opac ities bilaterally, as above. Jaylen Sheldon MD on September 02, 2017 at 12:24 Board Certified Radiologist. This report was verified electronically.
[2017-09-02 12:34] LABS: D-DIMER 0.24 MG/L FEU (0.00-0.50); PROTHROMBIN TIME - PATIENT 9.7 SEC (9.8-11.6)
[2017-09-02 13:08] LABS: ALKALINE PHOSPHATASE 122 U/L (45-117); TOTAL BILIRUBIN ADULT 0.2 MG/DL (0.2-1.0); TOTAL PROTEIN 7.2 GM/DL (6.4-8.2); TROPONIN I LESS THAN 0.02 NG/ML (0.02-0.05)
[2017-09-02 13:13] LABS: ALBUMIN 3.3 GM/DL (3.4-5.0); ALT (GPT) 22 U/L (10-53); AST (GOT) 35 U/L (15-37); BICARBONATE 24.6 MEQ/L (21.0-32.0); BLOOD UREA NITROGEN 4 MG/DL (7-18); CALCIUM 8.7 MG/DL (8.5-10.1); CHLORIDE 98 MEQ/L (98-107); CREATININE 0.56 MG/DL (0.50-1.00); GLOMERULAR FILTRATION RATE 111 ML/MIN (>89); GLUCOSE,RANDOM 87 MG/DL (74-106); MAGNESIUM 2.2 MG/DL (1.5-2.5); SODIUM (NA) 131 MEQ/L (136-145)
[2017-09-02] MEDS ORDERED: ALBUAER3 INH (13:57)
[2017-09-02] MEDS ORDERED: GABA600T PO (13:57)
[2017-09-02] MEDS ORDERED: AZIT250T3 PO (13:57)
[2017-09-02] MEDS ORDERED: PRED20 PO (13:57)
[2017-09-02] MEDS ORDERED: AMLO10TA2 PO (13:57)
[2017-09-02] MEDS ORDERED: LISI40TA PO (13:57)
[2017-09-02] MEDS ORDERED: CLON0.3T PO (13:57)
[2017-09-02 14:06] VITALS: BP 119/79; PULSE 101; RESP 21; O2SAT 98
[2017-09-02] MEDS ORDERED: PROT40TA PO (14:20)
[2017-09-02 14:57] VITALS: BP 124/75
--- NOTE | 2017-09-03 15:25 | EKG ---
Date Performed: 09/02/2017 Time Performed: 13:47:29 PTAGE: 57 years EKG: Sinus rhythm Since previous tracing, no significant change noted NORMAL ECG PREVIOUS TRACING : 07/30/2017 15.46 DOCTOR: Marcellus Mc Interpretating Date/Time 09/03/2017 15:24:25
== END 2017-09-02 15:24 | disposition home or self-care (01) ==
LOC: NEPE 10:52
DX: J20.9 Acute bronchitis, unspecified (principal); J32.9 Chronic sinusitis, unspecified; R51 Headache; I10 Essential (primary) hypertension; J44.9 Chronic obstructive pulmonary disease, unspecified; M19.90 Unspecified osteoarthritis, unspecified site; R56.9 Unspecified convulsions; N17.9 Acute kidney failure, unspecified; Z87.19 Personal history of other diseases of the digestive system
CPT/HCPCS: 70450; 71045; 80053; 82550; 82552; 83690; 83735; 84484; 85025; 85379; 85610; 85730; 87040; 87804; 93005; 94640; 94664; 96374; 99285; J2930; J7040

== ENCOUNTER 2017-09-13 10:19 | Emergency (ER) | payer MEDICAID ==
[~2017-09-13] VITALS: Ht 162.6 cm; Wt 54.5 kg
[~2017-09-13 10:19] MED LIST changes: +AZIT250T3 PO; +PRED20 PO
[2017-09-13 10:21] VITALS: BP 198/95; PULSE 120; RESP 18; TEMP 98.2; O2SAT 100
[2017-09-13] MEDS ORDERED: ORPHENADRINE INJ 60 MG/2 ML AMP IM ONE (11:15)
[2017-09-13] MEDS ORDERED: ACETAMINOPHEN/HYDROcodone 325 MG/5 MG TAB PO ONE (11:15)
[2017-09-13] MEDS ORDERED: methylPREDNISolone SOD SUCC 125 MG/2 ML VIAL IV PUSH ONE (11:15)
--- NOTE | 2017-09-13 11:17 | PD ---
HPI Chief Complaint: Back/ Neck Pain or Injury Time Seen by Provider: 10:52 Travel History International Travel<30 days: No Contact w/Intl Traveler<30days: No Traveled to known affect area: No History of Present Illness HPI 57y female presents emergency department complaining of low back pain that started Monday. Patient states that she was scrubbing the floor Monday and developed increasing pain Monday evening. Patient states the pain is excruciating. Pain is located in the lower lumbar region lateral aspects that initially started on the right but is optimistic into the left paraspinous muscles. Patient states that the pain radiates down the back of her glutes and to the anterior aspect of the knee. Patient denies loss of bowel or bladder function, fever, chills, history of IV drug use, saddle anesthesia. She denies significant weakness to her lower extremities. States that she has a history of this but has been "a long time" since her last episode. States that she has been using Tylenol for her pain but has not had significant relief. Patient states that she follows up with a primary care physician on Monday. PFSH Past Medical History Arthritis: Yes Asthma: No Autoimmune Disease: Yes Anxiety: Yes Depression: Yes Heart Rhythm Problems: No Cancer: Yes (LUNG 04/2017) Cardiovascular Problems: Yes High Cholesterol: No Chemotherapy: No Chest Pain: No Congestive Heart Failure: No COPD: Yes Cerebrovascular Accident: Yes (Possible TIA in past) Diabetes: No Diminished Hearing: No (UNOBTAINABLE) Endocrine: No Gastrointestinal Disorders: Yes GERD: Yes Headaches: Yes (Last week) Hiatal Hernia: No Hypertension: Yes Implanted Vascular Access Dvce: Yes Kidney Stones: No Musculoskeletal: Yes Neurologic: Yes Psychiatric: Yes Respiratory: Yes (COPD) Migraines: Yes (6 months ago) Radiation Therapy: No Renal Failure: Yes (ARF (8 months ago)) Seizures: Yes Sickle Cell Disease: No Thyroid Disease: No Ulcer: Yes Past Surgical History Abdominal Surgery: Yes (Ulcers) AICD: No Appendectomy: Yes Arteriovenous Shunt: No Cardiac Surgery: No Ear Surgery: No Endocrine Surgery: No Eye Surgery: No Genitourinary Surgery: No Gynecologic Surgery: Yes (Hysterectomy (total)) Hysterectomy: Yes Insulin Pump: No Oral Surgery: No Pacemaker: No Thoracic Surgery: No Other Surgery: Yes Social History Alcohol Use: Yes (OCC) Tobacco Use: No (QUIT APR 2017) Substance Use: No Allergies-Medications (Allergen,Severity, Reaction): Coded Allergies: codeine (Verified Allergy, Severe, 09/13/17) meloxicam (Verified Allergy, Severe, 09/13/17) NSAIDS (Non-Steroidal Anti-Inflamma (Verified Allergy, Intermediate, ) STOMACH ULCERS Reported Meds & Prescriptions Reported Meds & Active Scripts Active Robaxin (Methocarbamol) 500 Mg Tab 500 Mg PO TID 3 Days Medrol Dosepak (Methylprednisolone) 4 Mg Dspk 4 Mg PO DIRECTED Per Pharmacist direction Protonix (Pantoprazole Sodium) 40 Mg Tab 40 Mg PO DAILY Azithromycin 250 Mg Tab 250 Mg PO DIRECTED Take 2 tabs (500 mg) on day 1 then 1 tab daily x 4 days. Prednisone 20 Mg Tab 20 Mg PO BID 5 Days Gabapentin 600 Mg Tab 600 Mg PO HS Lisinopril 40 Mg Tab 40 Mg PO DAILY Clonidine (Clonidine HCl) 0.3 Mg Tab 0.3 Mg PO Q12HR PRN Proair Hfa 8.5 GM Inh (Albuterol Sulfate) 90 Mcg/Act Aer 2 Puff INH Q4-6H PRN 108 mcg/actuation Reported Zanaflex (Tizanidine HCl) 4 Mg Tab 4 Mg PO TID Spiriva Handihaler (Tiotropium Inh) 18 Mcg Cap 18 Mcg INH DAILY 1 capsule = 18 mcg Potassium Chloride ER (Potassium Chloride) 10 Meq Tab 10 Meq PO DAILY Zofran (Ondansetron HCl) 4 Mg Tab 4 Mg PO Q8HR PRN Dulera 120 Act Inh (Mometasone-Formoterol 120 Act Inh) 100-5 Mcg/Act Inh 2 Puff INH BID Methadone (Methadone HCl) 5 Mg Tab 5 Mg PO DAILY Lisinopril 40 Mg Tab 40 Mg PO DAILY Linzess (Linaclotide) 290 Mcg Cap 290 Mcg PO DAILY Xopenex Neb (Levalbuterol HCl) 0.63 Mg/3 Ml Neb 0.63 Mg NEB QID Vistaril (Hydroxyzine Pamoate) 25 Mg Cap 25 Mg PO TID PRN Ergocalciferol 50,000 Unit Cap 50,000 Units PO Q7D Duloxetine DR (Duloxetine HCl) 60 Mg Capdr 60 Mg PO DAILY Carvedilol 12.5 Mg Tab 12.5 Mg PO BID Calcium 500 +D (Calcium Carbonate-Cholecalciferol) 500-400 Mg-Unit Tab 1 Tab PO DAILY Wellbutrin Xl 24 HR (Bupropion HCl) 150 Mg Tab 150 Mg PO DAILY Amlodipine (Amlodipine Besylate) 10 Mg Tab 10 Mg PO DAILY Review of Systems Except as stated in HPI: all other systems reviewed are Neg Physical Exam Narrative GENERAL: [-] SKIN: Focused skin assessment warm/dry. HEAD: Atraumatic. Normocephalic. EYES: Pupils equal and round. No scleral icterus. No injection or drainage. ENT: No nasal bleeding or discharge. Mucous membranes pink and moist. NECK: Trachea midline. No JVD. CARDIOVASCULAR: Regular rate and rhythm. No murmur appreciated. RESPIRATORY: No accessory muscle use. Clear to auscultation. Breath sounds equal bilaterally. GASTROINTESTINAL: Abdomen soft, non-tender, nondistended. Hepatic and splenic margins not palpable. MUSCULOSKELETAL: No obvious deformities. No clubbing. No cyanosis. No edema. DTRs intact 2/4, motor 5/5, sensory intact. no obvious neuro deficits. NEUROLOGICAL: Awake and alert. No obvious cranial nerve deficits. Motor grossly within normal limits. Normal speech. PSYCHIATRIC: Appropriate mood and affect; insight and judgment normal. Data Data Last Documented VS Vital Signs Date Time Temp Pulse Resp B/P (MAP) Pulse Ox O2 Delivery O2 Flow Rate FiO2 09/13/17 12:26 105 18 182/89 (120) 100 09/13/17 10:21 98.2 Orders Orders Methylprednisolone So Succ Inj (Solumedr (09/13/17 11:15) Orphenadrine Inj (Norflex Inj) (09/13/17 11:15) Acetamin-Hydrocod 325-5 Mg (Prole 5-325 (09/13/17 11:15) Methylprednisolone So Succ Inj (Solumedr (09/13/17 11:30) Ed Discharge Order (09/13/17 12:16) MDM Medical Decision Making Medical Screen Exam Complete: Yes Emergency Medical Condition: Yes Differential Diagnosis Muscle spasms, sciatica, osteoarthritis Narrative Course 57-year-old female presents emergency department complaining of low back pain and sciatica symptoms since Monday evening. No red flag symptoms. Patient tachycardic at 120 however, after review of the EMR it appears that patient's normal heart rate is in the low 100s. Upon reassessment her heart rate is about 109. Physical exam findings reveal a neurovascular intact lower extremities, obvious muscle spasms of the right glut, no midline tenderness. Patient does appear to be in pain. Solumedrol, norflex, hydrocodone 5-325 administered. Patient will be discharged home with Medrol Dosepak and Robaxin. After further discussion with the patient, it appears that patient is on methadone has not had her medication for quite some time. She says that her back pain is the worst than she has had previously. I explained that because she had been on pain medications for a significant amount of time that her pain may be more intense than if she was without this medication. I explained that I cannot give her pain medication as this is not indicated. I do not see any red flag symptoms. I do not see indication for imaging studies. No trauma. H&P consistent with muscle spasms likely resulting in sciatica pain. Patient says that she has "multiple fractures in her back" and is followed up primary care physician and apparently pain management previously. Patient advised to follow-up with a primary care physician. Return to the emergency department worsening or persistent symptoms. Diagnosis Primary Impression: Sciatica Qualified Codes: M54.31 - Sciatica, right side Additional Impression: Muscle spasm Referrals: Primary Care Physician Additional Instructions: Take her medication as prescribed. If your symptoms persist or worsen return to the emergency department. Follow-up with primary care physician as we discussed. Perform light stretches of the lower back and legs, and alternate heat and ice packs. If you develop increased pain, weakness, fever, chills, or bowel or bladder issues, return to the ED for further treatment and evaluation. Scripts Methocarbamol (Robaxin) 500 Mg Tab 500 MG PO TID for Muscle Spasm for 3 Days, TAB 0 Refills Prov: Yuridia Choi 09/13/17 Methylprednisolone Dosepak (Medrol Dosepak) 4 Mg Dspk 4 MG PO DIRECTED, #1 DSPK 0 Refills Per Pharmacist direction Prov: Yuridia Choi 09/13/17 Disposition: 01 DISCHARGE HOME Condition: Stable Yuridia Choi Sep 13, 2017 11:17
[2017-09-13 11:20] VITALS: PULSE 109
[2017-09-13] MEDS ORDERED: methylPREDNISolone SOD SUCC 125 MG/2 ML VIAL IM ONE (11:30)
[2017-09-13] MEDS ORDERED: ROBA500T PO (12:08)
[2017-09-13] MEDS ORDERED: MEDR4PAK PO (12:08)
[2017-09-13 12:26] VITALS: BP 182/89
== END 2017-09-13 12:43 | disposition home or self-care (01) ==
LOC: NEPC 10:19
DX: M54.31 Sciatica, right side (principal); M62.838 Other muscle spasm; M19.90 Unspecified osteoarthritis, unspecified site; F32.9 Major depressive disorder, single episode, unspecified; J44.9 Chronic obstructive pulmonary disease, unspecified; N17.9 Acute kidney failure, unspecified; Z85.118 Personal history of other malignant neoplasm of bronchus and lung; Z88.6 Allergy status to analgesic agent; Z88.5 Allergy status to narcotic agent
CPT/HCPCS: 96372; 99283; J2360; J2930